=== PATIENT | female | born 1985 | race Caucasian/White ===

== ENCOUNTER → 2016-06-29 | Outpatient (CLI) | payer OTHER ==
[~2016-06-29] MED LIST: ACET-654 PO; ALBU17IN INH; AMBI12.52 PO; AUGM875T27 PO; CITA20TA4 PO; CYMB60CA3 PO; IBUP80TA PO; PERC5TAB6 PO; PERCOCET PO; PRENTAB8 OR; SIME80TA PO; TIZA2CAP3 PO; XANA0.5T PO
--- NOTE | 2016-06-29 14:10 | REP ---
Chest x-ray: Two views. History: Acute bronchitis, shortness of breath . Comparison study: May 07, 2016. . Findings: The lungs are well inflated and free of infiltrate. The pleural angles are sharp. The heart size is normal. Pulmonary vasculature is not increased. No significant bony abnormality is seen. Impression: Negative chest x-ray. Signed by Aly Burns MD 06/29/2016 02:00 P
== END ==
LOC: M ADAMS 13:40
PROVIDERS: ATTEND Physician Assistant
DX: J20.9 Acute bronchitis, unspecified (principal); R06.02 Shortness of breath

== ENCOUNTER 2016-07-04 12:24 | Emergency (ER) | payer OTHER ==
--- NOTE | 2016-07-04 13:23 | REP ---
Clinical: Acute chest pain . Comparison: 05/07/2016 . Technique: PA and lateral. Findings: The mediastinum and cardiac silhouette are normal. The lung mota are clear and without acute consolidation, effusion, or pneumothorax. The skeletal structures are intact and normal. Impression: 1. No acute cardiopulmonary process. Signed by Shaq Burton MD 07/04/2016 01:15 P
[2016-07-04 13:33] LABS: BASO # 0.1 K/mm3 (0.0-0.2); EOS # 0.3 K/mm3 (0.0-0.50); EOS % 2.6 % (0.0-3.0); LARGE UNSTAINED CELL # 0.2 K/mm3 (0.0-0.4); LARGE UNSTAINED CELL % 1.5 % (0.0-4.0); LYMPH # 4.4 K/mm3 (1.5-4.5); LYMPH % 32.8 % (24.0-44.0); MEAN CORPUSCULAR HEMOGLOBIN 28.5 pg (27.0-33.0); MEAN CORPUSCULAR VOLUME 83.7 fl (80.0-96.0); MONO # 0.7 K/mm3 (0.0-0.8); MONO % 5.2 % (0.0-5.0); NEUTROPHILS # 7.4 K/mm3 (1.8-7.7); PLATELET COUNT, AUTOMATED 284 k/mm3 (150-450); RED CELL DISTRIBUTION WIDTH 13.5 % (11.5-14.5)
[2016-07-04 13:35] LABS: ALBUMIN 3.9 GM/DL (3.2-5.2); ALBUMIN/GLOBULIN RATIO 1.05 (1.00-1.93); ALKALINE PHOSPHATASE 63 U/L (45-117); ALT/SGPT 38 U/L (12-78); AMYLASE 35 U/L (25-115); ANION GAP 8 MEQ/L (8-16); AST/SGOT 14 U/L (15-37); BILIRUBIN,DIRECT < 0.1 MG/DL (0.0-0.2); BILIRUBIN,TOTAL 0.4 MG/DL (0.2-1.0); BLOOD UREA NITROGEN 17 MG/DL (7-18); CALCIUM LEVEL 8.5 MG/DL (8.5-10.1); CARBON DIOXIDE LEVEL 27 MEQ/L (21-32); CHLORIDE LEVEL 103 MEQ/L (98-107); CREATININE FOR GFR 0.79 MG/DL (0.55-1.02); GLOMERULAR FILTRATION RATE > 60.0 (>60); GLUCOSE, FASTING 85 MG/DL (70-105); POTASSIUM SERUM 3.7 MEQ/L (3.5-5.1); SODIUM LEVEL 138 MEQ/L (136-145); TOTAL PROTEIN 7.6 GM/DL (6.4-8.2)
[2016-07-04 13:38] LABS: INR 0.99
--- NOTE | 2016-07-04 15:09 | EDDOCDS ---
Physician Documentation [facility] Name: Marilee Rivas Age: 30 yrs Sex: Female : 1985 Arrival Date: 07/04/2016 Time: 12:24 Bed 3 Private MD: Disposition: 07/04/16 14:34 Discharged to Home/Self Care. Impression: Pleurisy, Viral infection, unspecified. - Condition is Stable. - Discharge Instructions: Pleurisy, Viral Infections. - Prescriptions for Ibuprofen 600 mg Oral Tablet - take 1 tablet by ORAL route every 6 hours As needed take with food; 30 tablet. - Medication Reconciliation, Local Pharmacy Hours form. - Follow up: Private Physician; When: 4 - 5 days; Reason: Recheck today's complaints, Continuance of care. - Problem is an ongoing problem. - Symptoms are unchanged. Historical: - Allergies: no known allergies; - Home Meds: 1. BuSpar Oral 7.5 mg daily (Last dose: 07/04/2016 08:00) 2. Suboxone 8-2 mg sublingual film 1 film once daily (Last dose: 07/04/2016 08:00) 3. Levaquin 500 mg Oral tab 1 tab once daily (Last dose: 07/04/2016 08:00) 4. Celexa 40 mg Oral tab 1 tab once daily (Last dose: 07/04/2016 08:00) 5. gabapentin 400 mg Oral cap 1 cap 3 times per day (Last dose: 07/04/2016 08:00) 6. albuterol sulfate 90 mcg/actuation Inhl aepb 1 puff every 4-6 hours (Last dose: 07/04/2016 08:00) - PMHx: Anxiety; Depression; Fibromyalgia; neuropathy; opiate dependency; - PSHx: Cesearean Section; Cholecystectomy; Appendectomy; Hysterectomy; lysis of adhsions; - Social history: Smoking status: Patient states was never smoker of tobacco. No barriers to communication noted, Speaks appropriately for age. - Family history: Not pertinent. - : The pt / caregiver states he / she is not on anticoagulants. Home medication list is obtained from the patient. - Exposure Risk Screening:: None identified. 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 7 in. (170.18 cm); Pain 7/10; 12:39 Resp 20; ls3 13:00 BP 151 / 77 (auto/); ml6 13:00 Pulse 75 MON; Pulse Ox 95% ; ml6 13:15 BP 128 / 67 (auto/); ml6 13:15 Pulse 43 MON; Pulse Ox 96% ; ml6 13:27 BP 190 / 86 (auto/); ml6 13:27 Pulse 70 MON; Resp 18; Pulse Ox 98% on R/A; Pain 5/10; ml6 13:30 BP 126 / 68 (auto/); ml6 13:30 Pulse 43 MON; Resp 18; Pulse Ox 96% on R/A; ml6 13:44 Pulse 42 MON; Resp 16; Pulse Ox 94% on R/A; ml6 13:45 BP 117 / 63 (auto/); ml6 13:57 BP 160 / 77 (auto/); ml6 13:57 Pulse 72 MON; Resp 18; Pulse Ox 98% on R/A; Pain 6/10; ml6 14:00 BP 114 / 57 (auto/); ml6 14:00 Pulse 46 MON; Resp 16; Pulse Ox 95% on R/A; Pain 5/10; ml6 15:06 BP 116 / 58; Pulse 48; Resp 16; Pulse Ox 98% on R/A; Pain 6/10; ml6 12:39 Body Mass Index 32.89 (95.25 kg, 170.18 cm) ls3 15:06 patient refused temp ml6 MDM: 12:34 ECG WITH READING ER PHYS+CARDIAG ordered. EDMS 12:59 -Blood Culture (Adults Only), peripheral from different site, or from device/port/PICC ke etc. if present ordered. 12:59 Salary And Wage Administrator/Pulse Ox/q 15 min VS ordered. ke 12:59 Oxygen at 4L/Min NC or Home dosage ordered. ke 12:59 Obtain sample by nasopharyngeal swab ordered. ke 13:00 Amylase Ordered. EDMS 13:00 CBC with Diff Ordered. EDMS 13:00 Lactic Acid (Olivia tube on ice) Ordered. EDMS 13:00 Liver Profile Ordered. EDMS 13:00 MED Profile Ordered. EDMS 13:00 PT/INR Ordered. EDMS 13:00 Urinalysis Ordered. EDMS 13:00 -Blood Culture Ordered. EDMS 13:00 Urine Culture Ordered. EDMS 13:00 -Influenza A&B Rapid Antigen - Nose Ordered. EDMS 13:01 Chest, 2 View (pa\E\lat) Ordered. EDMS 13:08 -Blood Culture (Adults Only), peripheral from different site, or from device/port/PICC deg etc. if present complete. 13:13 BLOOD CULTURES Ordered. EDMS 14:00 CBC with Diff Reviewed. ke 14:00 Liver Profile Reviewed. ke 14:00 Amylase Reviewed. ke 14:00 Lactic Acid (Olivia tube on ice) Reviewed. ke 14:00 MED Profile Reviewed. ke 14:00 PT/INR Reviewed. ke 14:00 Chest, 2 View (pa\E\lat) Reviewed. ke 14:13 CARDIAC INJURY PROFILE Ordered. EDMS 14:13 C REACTIVE PROTEIN QUANTITATIV Ordered. EDMS 14:13 TROPONIN Ordered. EDMS 14:30 Liver Profile Reviewed. ke 14:30 Amylase Reviewed. ke 14:30 MED Profile Reviewed. ke 14:30 -Influenza A&B Rapid Antigen - Nose Reviewed. ke 14:30 CARDIAC INJURY PROFILE Reviewed. ke 14:30 C REACTIVE PROTEIN QUANTITATIV Reviewed. ke 14:30 TROPONIN Reviewed. ke Signatures: Dispatcher [employer] EDMS Margarita Bryan, Street Engineer Unit deg Vijay Figueroa, NURSING HOME SOCIAL WORKER Fito Lutz, RN RN ml6 The chart was reviewed and I authenticate all verbal orders and agree with the evaluation and treatment provided.Corrections: (The following items were deleted from the chart) 14:11 14:04 CARDIAC INJURY PROFILE+LAB ordered. EDMS EDMS 14:11 14:04 TROPONIN+LAB ordered. EDMS EDMS 14:11 14:04 C REACTIVE PROTEIN QUANTITATIV+LAB ordered. EDMS EDMS MTDD
--- NOTE | 2016-07-04 15:09 | EDDOCDS ---
Nurse's Notes [facility] Name: Marilee Rivas Age: 30 yrs Sex: Female : 1985 Arrival Date: 07/04/2016 Time: 12:24 Bed 3 Private MD: Diagnosis: Pleurisy;Viral infection, unspecified Presentation: 07/04 12:39 Presenting complaint: Patient states: states CP x 2 weeks despite seeing urgent care ml6 multiple times and Ax. Aspirin was taken GINNER. Adult Sepsis Screening: The patient does not have new or worsening altered mentation. Patient's respiratory rate is less than 22. Systolic blood pressure is greater than 100. Patient has a qSOFA score of 0- Negative Sepsis Screen. Suicide/Homicide risk assessment- the patient denies having any suicidal and/or homicidal ideations and does not present with any other emotional, behavioral or mental health complaints. Status: Patient is not a room service food service attendant or dependent. Transition of care: patient was not received from another setting of care. 12:39 Acuity: RONAK Level 2 ml6 12:39 Method Of Arrival: Ambulance ml6 Triage Assessment: 12:39 General: Appears in no apparent distress, Behavior is anxious, cooperative. Pain: ml6 Location: chest Pain currently is 6 out of 10 on a pain scale. Pain does not radiate. Quality of pain is described as aching, Pain began 2 weeks GINNER Is continuous Alleviated by nothing. Aggravated by increased activity. HIV screening NA for this visit Offered previously. Cardiovascular: Heart tones S1 S2 present Edema is absent. Pulses are all present. Rhythm is regular Chest pain is described as mild, quality is burning, is located in substernal area radiates Does not radiate. episodes are continuous began 2 weeks GINNER. Respiratory: No deficits noted. GI: No deficits noted. 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 BuSpar Oral 7.5 mg daily (Last dose: 07/04/2016 08:00) 2. Suboxone 8-2 mg sublingual film 1 film once daily (Last dose: 07/04/2016 08:00) 3. Levaquin 500 mg Oral tab 1 tab once daily (Last dose: 07/04/2016 08:00) 4. Celexa 40 mg Oral tab 1 tab once daily (Last dose: 07/04/2016 08:00) 5. gabapentin 400 mg Oral cap 1 cap 3 times per day (Last dose: 07/04/2016 08:00) 6. albuterol sulfate 90 mcg/actuation Inhl aepb 1 puff every 4-6 hours (Last dose: 07/04/2016 08:00) - PMHx: Anxiety; Depression; Fibromyalgia; neuropathy; opiate dependency; - PSHx: Cesearean Section; Cholecystectomy; Appendectomy; Hysterectomy; lysis of adhsions; - Social history: Smoking status: Patient states was never smoker of tobacco. No barriers to communication noted, Speaks appropriately for age. - Family history: Not pertinent. - : The pt / caregiver states he / she is not on anticoagulants. Home medication list is obtained from the patient. - Exposure Risk Screening:: None identified. Screenin:43 Screening information is obtained from the patient. Fall risk: No risks identified. ml6 Assistance ADL's: requires no assistance with activities of daily living. Abuse/DV Screen: The patient / caregiver reports he/she is: not in a situation that causes fear, pain or injury. Nutritional screening: No deficits noted. Advance Directives: Currently, there is no health care proxy. home support is adequate. Assessment: 12:39 General: see triage assessment. Cardiovascular: Capillary refill < 3 seconds is brisk ml6 in bilateral fingers toes Heart tones S1 S2 present Edema is absent. Pulses are all present. Rhythm is sinus bradycardia No ectopy. Chest pain is described as mild, quality is burning, is located in substernal area radiates Does not radiate. episodes are continuous. 13:30 General: Appears in no apparent distress, comfortable, Behavior is appropriate for age, ml6 cooperative. Pain: Location: chest Pain currently is 5 out of 10 on a pain scale. Pain does not radiate. Quality of pain is described as aching, Pain began 2 weeks ago. Cardiovascular: No deficits noted. Heart tones S1 S2 present Edema is absent. Pulses are all present. Rhythm is sinus bradycardia Chest pain. Respiratory: No deficits noted. 14:30 Reassessment: Patient appears in no apparent distress at this time. Patient states ml6 symptoms have not improved. no change from previous assessment. 15:01 General: Appears distressed, Behavior is anxious, restless, uncooperative, patient ml6 states "I'm fucking going to [place], I've been hurting for 2 weeks and the Doctor won't fix it, I'm fucking going to go to [place] where they will fucking take care of me", attempted to discuss with patient without success. Patient states "This place is a fucking joke, your a fucking joke, get out of my fucking room asshole" Patient given D/C instructions and refused copy. Copy mailed to patient. Vital Signs: 12:16 BP 203 / 102 (auto/); ml6 12:16 Pulse 80 MON; ml6 12:39 BP 150 / 88; Pulse 43; Temp 99.1(O); Pulse Ox 96% on R/A; Weight 95.25 kg; Height 5 ft. ls3 7 in. (170.18 cm); Pain 7/10; 12:39 Resp 20; ls3 13:00 BP 151 / 77 (auto/); ml6 13:00 Pulse 75 MON; Pulse Ox 95% ; ml6 13:15 BP 128 / 67 (auto/); ml6 13:15 Pulse 43 MON; Pulse Ox 96% ; ml6 13:27 BP 190 / 86 (auto/); ml6 13:27 Pulse 70 MON; Resp 18; Pulse Ox 98% on R/A; Pain 5/10; ml6 13:30 BP 126 / 68 (auto/); ml6 13:30 Pulse 43 MON; Resp 18; Pulse Ox 96% on R/A; ml6 13:44 Pulse 42 MON; Resp 16; Pulse Ox 94% on R/A; ml6 13:45 BP 117 / 63 (auto/); ml6 13:57 BP 160 / 77 (auto/); ml6 13:57 Pulse 72 MON; Resp 18; Pulse Ox 98% on R/A; Pain 6/10; ml6 14:00 BP 114 / 57 (auto/); ml6 14:00 Pulse 46 MON; Resp 16; Pulse Ox 95% on R/A; Pain 5/10; ml6 15:06 BP 116 / 58; Pulse 48; Resp 16; Pulse Ox 98% on R/A; Pain 6/10; ml6 12:39 Body Mass Index 32.89 (95.25 kg, 170.18 cm) ls3 15:06 patient refused temp ml6 Vitals: 13:03 Log In Time N/A - ambulance arrival. ml6 ED Course: 12:25 Patient visited by Margarita Bryan, Retail Chain Store Area Supervisor. deg 12:25 Patient moved to Waiting deg 12:25 The patient / caregiver is instructed regarding the plan of care and ED course. Cardiac ml6 monitor on. Pulse ox on. NIBP on. 12:27 Patient moved to 3 deg 12:39 EKG done. (by ED staff). Reviewed by Mauricio Paul MD. ls3 12:39 Inserted peripheral IV: 18gauge IV in left forearm and blood collected. Patient ml6 tolerated the procedure well. Labs drawn. (by ED staff). Sent per order to lab. 12:49 [facility]ij[facility]. ke 12:49 Patient visited by Vijay Figueroa FNP. ke 12:50 Patient visited by Vijay Figueroa FNP. ke 12:58 Triage Initiated ml6 13:21 Patient visited by Mariluz Romero PCA. ct3 13:45 Chest, 2 View (pa\\E\\lat) Returned. EDMS 13:57 Patient visited by Vijay Figueroa FNP. ke 14:24 Patient visited by Vijay Figueroa FNP. ke 15:06 Discontinued IV bleeding controlled, pressure dressing applied, No redness/swelling at ml6 site. No procedures done that require assistance. Order Results: Lab Order: Amylase; SPEC'M 07/04/16 12:53 Test: AMYLASE; Value: 35; Range: 25-115; Units: U/L; Status: F Lab Order: CBC with Diff; SPEC'M 07/04/16 12:53 Test: WHITE BLOOD COUNT; Value: 13.0; Range: 4.0-10.0; Abnormal: Above high normal; Units: K/mm3; Status: F Test: RED BLOOD COUNT; Value: 4.69; Range: 4.00-5.40; Units: M/mm3; Status: F Test: HEMOGLOBIN; Value: 13.3; Range: 12.0-16.0; Units: g/dl; Status: F Test: HEMATOCRIT; Value: 39.2; Range: 36.0-47.0; Units: %; Status: F Test: MEAN CORPUSCULAR VOLUME; Value: 83.7; Range: 80.0-96.0; Units: fl; Status: F Test: MEAN CORPUSCULAR HEMOGLOBIN; Value: 28.5; Range: 27.0-33.0; Units: pg; Status: F Test: MEAN CORPUSCULAR HGB CONC; Value: 34.0; Range: 32.0-36.5; Units: g/dl; Status: F Test: RED CELL DISTRIBUTION WIDTH; Value: 13.5; Range: 11.5-14.5; Units: %; Status: F Test: PLATELET COUNT, AUTOMATED; Value: 284; Range: 150-450; Units: k/mm3; Status: F Test: NEUTROPHILS %; Value: 57.0; Range: 36.0-66.0; Units: %; Status: F Test: LYMPH %; Value: 32.8; Range: 24.0-44.0; Units: %; Status: F Test: MONO %; Value: 5.2; Range: 0.0-5.0; Abnormal: Above high normal; Units: %; Status: F Test: EOS %; Value: 2.6; Range: 0.0-3.0; Units: %; Status: F Test: BASO %; Value: 1.0; Range: 0.0-1.0; Units: %; Status: F Test: LARGE UNSTAINED CELL %; Value: 1.5; Range: 0.0-4.0; Units: %; Status: F Test: NEUTROPHILS #; Value: 7.4; Range: 1.8-7.7; Units: K/mm3; Status: F Test: LYMPH #; Value: 4.4; Range: 1.5-4.5; Units: K/mm3; Status: F Test: MONO #; Value: 0.7; Range: 0.0-0.8; Units: K/mm3; Status: F Test: EOS #; Value: 0.3; Range: 0.0-0.50; Units: K/mm3; Status: F Test: BASO #; Value: 0.1; Range: 0.0-0.2; Units: K/mm3; Status: F Test: LARGE UNSTAINED CELL #; Value: 0.2; Range: 0.0-0.4; Units: K/mm3; Status: F Lab Order: Lactic Acid (Olivia tube on ice); SPEC'M 07/04/16 12:53 Test: LACTIC ACID LEVEL, LACTATE; Value: 0.9; Range: 0.4-2.0; Units: MMOL/L; Status: F Lab Order: Liver Profile; SPEC'M 07/04/16 12:53 Test: AST/SGOT; Value: 14; Range: 15-37; Abnormal: Below low normal; Units: U/L; Status: F Test: ALT/SGPT; Value: 38; Range: 12-78; Units: U/L; Status: F Test: ALKALINE PHOSPHATASE; Value: 63; Range: 45-117; Units: U/L; Status: F Test: BILIRUBIN,TOTAL; Value: 0.4; Range: 0.2-1.0; Units: MG/DL; Status: F Test: BILIRUBIN,DIRECT; Value: < 0.1; Range: 0.0-0.2; Units: MG/DL; Status: F Test: TOTAL PROTEIN; Value: 7.6; Range: 6.4-8.2; Units: GM/DL; Status: F Test: ALBUMIN; Value: 3.9; Range: 3.2-5.2; Units: GM/DL; Status: F Test: ALBUMIN/GLOBULIN RATIO; Value: 1.05; Range: 1.00-1.93; Status: F Lab Order: MED Profile; SPEC'M 07/04/16 12:53 Test: GLUCOSE, FASTING; Value: 85; Range: 70-105; Units: MG/DL; Status: F Test: BLOOD UREA NITROGEN; Value: 17; Range: 7-18; Units: MG/DL; Status: F Test: CREATININE FOR GFR; Value: 0.79; Range: 0.55-1.02; Units: MG/DL; Status: F Test: GLOMERULAR FILTRATION RATE; Value: > 60.0; Range: >60; Status: F Test: SODIUM LEVEL; Value: 138; Range: 136-145; Units: MEQ/L; Status: F Test: POTASSIUM SERUM; Value: 3.7; Range: 3.5-5.1; Units: MEQ/L; Status: F Test: CHLORIDE LEVEL; Value: 103; Range: 98-107; Units: MEQ/L; Status: F Test: CARBON DIOXIDE LEVEL; Value: 27; Range: 21-32; Units: MEQ/L; Status: F Test: ANION GAP; Value: 8; Range: 8-16; Units: MEQ/L; Status: F Test: CALCIUM LEVEL; Value: 8.5; Range: 8.5-10.1; Units: MG/DL; Status: F Test Note: ; Units are mL/min/1.73 m2 Chronic Kidney Disease Staging per NKF: Stage I & II GFR >=60 Normal to Mildly Decreased Stage III GFR 30-59 Moderately Decreased Stage IV GFR 15-29 Severely Decreased Stage V GFR <15 Very Little GFR Left ESRD GFR <15 on ADVOCACY DIRECTOR Lab Order: PT/INR; SPEC'M 07/04/16 12:53 Test: PROTHROMBIN TIME; Value: 13.2; Range: 12.3-14.5; Units: SECONDS; Status: F Test: INR; Value: 0.99; Status: F Test Note: ; THERAPUTIC HUMAN INR VALUES INDICATIONS NORMAL RANGES PROPHYLAXIS/TREATMENT OF: VENOUS THROMBOSIS 2.0-3.0 PULMONARY EMBOLISM 2.0-3.0 PREVENTION OF SYSTEMIC EMBOLISM FROM: TISSUE HEART VALVES 2.0-3.0 ACUTE MYOCARDIAL INFARCTION 2.0-3.0 VALVULAR HEART DISEASE 2.0-3.0 ATRIAL FIBRILLATION 2.0-3.0 MECHANICAL VALVES(HIGH RISK) 2.5-3.5 RECURRENT MYOCARDIAL INFARCTION 2.5-3.5 Lab Order: -Influenza A&B Rapid Antigen - Nose; SPEC'M 07/04/16 13:48 Test: INFLUENZA A RAPID SCR by ICA; Value: INFLUENZA A RESULTS NEGATIVE; Status: F Test: INFLUENZA A RAPID SCR by ICA; Value: Comments:; Status: F Test: INFLUENZA B RAPID SCR by ICA; Value: INFLUENZA B RESULTS NEGATIVE; Status: F Test Note: ; The Influenza test is a direct rapid immunoassay for the qualitative detection of Influenza viral antigen. Cell culture (Viral Culture) testing should be considered to confirm NEGATIVE results and to assist in detecting other viruses that can provide similar clinical symptoms. Please contact the lab within 24 hours ([phone]) if confirmatory testing is desired. Lab Order: CARDIAC INJURY PROFILE; SPEC'M 07/04/16 12:53 Test: CPK CREATINE PHOSPHOKINASE; Value: 35; Range: 26-192; Units: U/L; Status: F Test: CK-MB VALUE MASS; Value: 1.0; Range: 0.0-3.6; Units: NG/ML; Status: F Test: MB/CK RELATIVE INDEX; Value: 2.85; Range: < OR =4; Status: F Test Note: ; DIAGNOSIS CRITERIA MMB ng/ml Relative Index (RI) NON-AMI < or = 5 N/A OLIVIA ZONE > 5 < or = 4 AMI > 5 > 4 Lab Order: C REACTIVE PROTEIN QUANTITATIV; SPEC'M 07/04/16 12:53 Test: C REACTIVE PROTEIN QUANTITATIV; Value: < 0.30; Range: 0.00-0.30; Units: MG/DL; Status: F Lab Order: TROPONIN; SPEC'M 07/04/16 12:53 Test: TROPONIN I; Value: < 0.02; Range: < 0.10; Units: NG/ML; Status: F Test Note: ; Troponin I Reference Interval for [employer] LOCI: 99th Percentile= 0.00-0.045 ng/ml Risk Stratification: <= 0.10 ng/ml Decreased Risk for Adverse Clinical Events. 0.10-1.50 ng/ml Increased Risk for Adverse Clinical Events. Evaluation of additional criterion and/or repeat testing in 2-6 hours is suggested to rule out myocardial damage. >= 1.50 ng/ml Indicative of Myocardial Injury. Radiology Order: Chest, 2 View (pa\\E\\lat) Test: Chest, 2 View (pa\\E\\lat) REASON FOR EXAMINATION: Chest Pain; Clinical: Acute chest pain .; ; Comparison: 05/07/2016 .; ; Technique: PA and lateral.; ; Findings:; The mediastinum and cardiac silhouette are normal. The lung mota are clear and; without acute consolidation, effusion, or pneumothorax. The skeletal structures; are intact and normal.; ; Impression:; 1. No acute cardiopulmonary process.; ; ; Signed by; Shaq Burton MD 07/04/2016 01:15 P; Outcome: 14:34 Discharge ordered by Provider. 15:06 Discharge Assessment: patient administered narcotics - no. The following High Risk ml6 Discharge criteria are identified: None. Discharged to home ambulatory. Condition: stable. Discharge instructions given to patient, Instructed on discharge instructions, follow up and referral plans. medication usage, Demonstrated understanding of instructions, medications, Patient was not receptive of discharge instructions. Prescriptions given X 1. No special radiology studies were completed. Property :Personal belongings accompany Pt. 15:07 Patient left the ED. ml6 Signatures: Dispatcher [employer] EDMS Margarita Bryan, Retail Chain Store Area Supervisor Unit deg iVjay Figueroa, NUTRITION TECHNICIAN NUTRITION TECHNICIAN Fito Avila, RN RN ml6 Mariluz Romero, DATA KEYER DATA KEYER ct3 Maria Elena Cortez, DATA KEYER DATA KEYER ls3 Corrections: (The following items were deleted from the chart) 15:06 13:27 Pulse 70bpm; MonitorResp 18bpm; Pulse Ox 98% RA; Pain 0/10; ml6 ml6 15:06 13:57 Pulse 72bpm; MonitorResp 18bpm; Pulse Ox 98% RA; Pain 0/10; ml6 ml6 15:06 14:00 Pulse 46bpm; MonitorResp 16bpm; Pulse Ox 95% RA; ml6 ml6 MTDD
--- NOTE | 2016-07-05 07:25 | ECGEPIP ---
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
--- NOTE | 2016-07-06 16:08 | EDDOCDS ---
Nurse's Notes [facility] Name: Katie Rivas Age: 30 yrs Sex: Female : 1985 Arrival Date: 07/04/2016 Time: 12:24 Bed 3 Private MD: Diagnosis: Pleurisy;Viral infection, unspecified Presentation: 07/04 12:39 Presenting complaint: Patient states: states CP x 2 weeks despite seeing urgent care ml6 multiple times and Ax. Aspirin was taken ACID PAINTER. Adult Sepsis Screening: The patient does not have new or worsening altered mentation. Patient's respiratory rate is less than 22. Systolic blood pressure is greater than 100. Patient has a qSOFA score of 0- Negative Sepsis Screen. Suicide/Homicide risk assessment- the patient denies having any suicidal and/or homicidal ideations and does not present with any other emotional, behavioral or mental health complaints. Status: Patient is not a creative services writer or dependent. Transition of care: patient was not received from another setting of care. 12:39 Acuity: RONAK Level 2 ml6 12:39 Method Of Arrival: Ambulance ml6 Triage Assessment: 12:39 General: Appears in no apparent distress, Behavior is anxious, cooperative. Pain: ml6 Location: chest Pain currently is 6 out of 10 on a pain scale. Pain does not radiate. Quality of pain is described as aching, Pain began 2 weeks ACID PAINTER Is continuous Alleviated by nothing. Aggravated by increased activity. HIV screening NA for this visit Offered previously. Cardiovascular: Heart tones S1 S2 present Edema is absent. Pulses are all present. Rhythm is regular Chest pain is described as mild, quality is burning, is located in substernal area radiates Does not radiate. episodes are continuous began 2 weeks ACID PAINTER. Respiratory: No deficits noted. GI: No deficits noted. 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 BuSpar Oral 7.5 mg daily (Last dose: 07/04/2016 08:00) 2. Suboxone 8-2 mg sublingual film 1 film once daily (Last dose: 07/04/2016 08:00) 3. Levaquin 500 mg Oral tab 1 tab once daily (Last dose: 07/04/2016 08:00) 4. Celexa 40 mg Oral tab 1 tab once daily (Last dose: 07/04/2016 08:00) 5. gabapentin 400 mg Oral cap 1 cap 3 times per day (Last dose: 07/04/2016 08:00) 6. albuterol sulfate 90 mcg/actuation Inhl aepb 1 puff every 4-6 hours (Last dose: 07/04/2016 08:00) - PMHx: Anxiety; Depression; Fibromyalgia; neuropathy; opiate dependency; - PSHx: Cesearean Section; Cholecystectomy; Appendectomy; Hysterectomy; lysis of adhsions; - Social history: Smoking status: Patient states was never smoker of tobacco. No barriers to communication noted, Speaks appropriately for age. - Family history: Not pertinent. - : The pt / caregiver states he / she is not on anticoagulants. Home medication list is obtained from the patient. - Exposure Risk Screening:: None identified. Screenin:43 Screening information is obtained from the patient. Fall risk: No risks identified. ml6 Assistance ADL's: requires no assistance with activities of daily living. Abuse/DV Screen: The patient / caregiver reports he/she is: not in a situation that causes fear, pain or injury. Nutritional screening: No deficits noted. Advance Directives: Currently, there is no health care proxy. home support is adequate. Assessment: 12:39 General: see triage assessment. Cardiovascular: Capillary refill < 3 seconds is brisk ml6 in bilateral fingers toes Heart tones S1 S2 present Edema is absent. Pulses are all present. Rhythm is sinus bradycardia No ectopy. Chest pain is described as mild, quality is burning, is located in substernal area radiates Does not radiate. episodes are continuous. 13:30 General: Appears in no apparent distress, comfortable, Behavior is appropriate for age, ml6 cooperative. Pain: Location: chest Pain currently is 5 out of 10 on a pain scale. Pain does not radiate. Quality of pain is described as aching, Pain began 2 weeks ago. Cardiovascular: No deficits noted. Heart tones S1 S2 present Edema is absent. Pulses are all present. Rhythm is sinus bradycardia Chest pain. Respiratory: No deficits noted. 14:30 Reassessment: Patient appears in no apparent distress at this time. Patient states ml6 symptoms have not improved. no change from previous assessment. 15:01 General: Appears distressed, Behavior is anxious, restless, uncooperative, patient ml6 states "I'm fucking going to [place], I've been hurting for 2 weeks and the Doctor won't fix it, I'm fucking going to go to [place] where they will fucking take care of me", attempted to discuss with patient without success. Patient states "This place is a fucking joke, your a fucking joke, get out of my fucking room asshole" Patient given D/C instructions and refused copy. Copy mailed to patient. Vital Signs: 12:16 BP 203 / 102 (auto/); ml6 12:16 Pulse 80 MON; ml6 12:39 BP 150 / 88; Pulse 43; Temp 99.1(O); Pulse Ox 96% on R/A; Weight 95.25 kg; Height 5 ft. ls3 7 in. (170.18 cm); Pain 7/10; 12:39 Resp 20; ls3 13:00 BP 151 / 77 (auto/); ml6 13:00 Pulse 75 MON; Pulse Ox 95% ; ml6 13:15 BP 128 / 67 (auto/); ml6 13:15 Pulse 43 MON; Pulse Ox 96% ; ml6 13:27 BP 190 / 86 (auto/); ml6 13:27 Pulse 70 MON; Resp 18; Pulse Ox 98% on R/A; Pain 5/10; ml6 13:30 BP 126 / 68 (auto/); ml6 13:30 Pulse 43 MON; Resp 18; Pulse Ox 96% on R/A; ml6 13:44 Pulse 42 MON; Resp 16; Pulse Ox 94% on R/A; ml6 13:45 BP 117 / 63 (auto/); ml6 13:57 BP 160 / 77 (auto/); ml6 13:57 Pulse 72 MON; Resp 18; Pulse Ox 98% on R/A; Pain 6/10; ml6 14:00 BP 114 / 57 (auto/); ml6 14:00 Pulse 46 MON; Resp 16; Pulse Ox 95% on R/A; Pain 5/10; ml6 15:06 BP 116 / 58; Pulse 48; Resp 16; Pulse Ox 98% on R/A; Pain 6/10; ml6 12:39 Body Mass Index 32.89 (95.25 kg, 170.18 cm) ls3 15:06 patient refused temp ml6 Vitals: 13:03 Log In Time N/A - ambulance arrival. ml6 ED Course: 12:25 Patient visited by Margarita Bryan, Magnetic Doctor. deg 12:25 Patient moved to Waiting deg 12:25 The patient / caregiver is instructed regarding the plan of care and ED course. Cardiac ml6 monitor on. Pulse ox on. NIBP on. 12:27 Patient moved to 3 deg 12:39 EKG done. (by ED staff). Reviewed by Mauricio Paul MD. ls3 12:39 Inserted peripheral IV: 18gauge IV in left forearm and blood collected. Patient ml6 tolerated the procedure well. Labs drawn. (by ED staff). Sent per order to lab. 12:49 [facility]ijay Figueroa FNP [facility]. ke 12:49 Patient visited by Vijay Figueroa FNP. ke 12:50 Patient visited by Vijay Figueroa FNP. ke 12:58 Triage Initiated ml6 13:21 Patient visited by Mariluz Romero, BILLIE. ct3 13:45 Chest, 2 View (pa\\E\\lat) Returned. EDMS 13:57 Patient visited by Vijay Figueroa FNP. ke 14:24 Patient visited by Vijay Figueroa FNP. ke 15:06 Discontinued IV bleeding controlled, pressure dressing applied, No redness/swelling at ml6 site. No procedures done that require assistance. 07/05 07:42 EKG-ADULT Returned. EDMS 10:15 T-Sheet-- Draft Copy was scanned into [employer] and attached to record. gb 10:16 ECG/EKG was scanned into [employer] and attached to record. gb Order Results: Lab Order: -Blood Culture; SPEC'M 07/04/16 12:53 Test: BLOOD CULTURE; Value: No growth after 24 hours . All specimens observed; Status: F Test: BLOOD CULTURE; Value: for 5 days. Results final at that time.; Status: F Test: BLOOD CULTURE; Value: No Growth after 48 hours. All Specimens observed; Status: F Test: BLOOD CULTURE; Value: for 7 days. Results final at that time.; Status: F Lab Order: Amylase; SPEC'M 07/04/16 12:53 Test: AMYLASE; Value: 35; Range: 25-115; Units: U/L; Status: F Lab Order: CBC with Diff; SPEC'M 07/04/16 12:53 Test: WHITE BLOOD COUNT; Value: 13.0; Range: 4.0-10.0; Abnormal: Above high normal; Units: K/mm3; Status: F Test: RED BLOOD COUNT; Value: 4.69; Range: 4.00-5.40; Units: M/mm3; Status: F Test: HEMOGLOBIN; Value: 13.3; Range: 12.0-16.0; Units: g/dl; Status: F Test: HEMATOCRIT; Value: 39.2; Range: 36.0-47.0; Units: %; Status: F Test: MEAN CORPUSCULAR VOLUME; Value: 83.7; Range: 80.0-96.0; Units: fl; Status: F Test: MEAN CORPUSCULAR HEMOGLOBIN; Value: 28.5; Range: 27.0-33.0; Units: pg; Status: F Test: MEAN CORPUSCULAR HGB CONC; Value: 34.0; Range: 32.0-36.5; Units: g/dl; Status: F Test: RED CELL DISTRIBUTION WIDTH; Value: 13.5; Range: 11.5-14.5; Units: %; Status: F Test: PLATELET COUNT, AUTOMATED; Value: 284; Range: 150-450; Units: k/mm3; Status: F Test: NEUTROPHILS %; Value: 57.0; Range: 36.0-66.0; Units: %; Status: F Test: LYMPH %; Value: 32.8; Range: 24.0-44.0; Units: %; Status: F Test: MONO %; Value: 5.2; Range: 0.0-5.0; Abnormal: Above high normal; Units: %; Status: F Test: EOS %; Value: 2.6; Range: 0.0-3.0; Units: %; Status: F Test: BASO %; Value: 1.0; Range: 0.0-1.0; Units: %; Status: F Test: LARGE UNSTAINED CELL %; Value: 1.5; Range: 0.0-4.0; Units: %; Status: F Test: NEUTROPHILS #; Value: 7.4; Range: 1.8-7.7; Units: K/mm3; Status: F Test: LYMPH #; Value: 4.4; Range: 1.5-4.5; Units: K/mm3; Status: F Test: MONO #; Value: 0.7; Range: 0.0-0.8; Units: K/mm3; Status: F Test: EOS #; Value: 0.3; Range: 0.0-0.50; Units: K/mm3; Status: F Test: BASO #; Value: 0.1; Range: 0.0-0.2; Units: K/mm3; Status: F Test: LARGE UNSTAINED CELL #; Value: 0.2; Range: 0.0-0.4; Units: K/mm3; Status: F Lab Order: Lactic Acid (Olivia tube on ice); [facility]' 07/04/16 12:53 Test: LACTIC ACID LEVEL, LACTATE; Value: 0.9; Range: 0.4-2.0; Units: MMOL/L; Status: F Lab Order: Liver Profile; [facility] 07/04/16 12:53 Test: AST/SGOT; Value: 14; Range: 15-37; Abnormal: Below low normal; Units: U/L; Status: F Test: ALT/SGPT; Value: 38; Range: 12-78; Units: U/L; Status: F Test: ALKALINE PHOSPHATASE; Value: 63; Range: 45-117; Units: U/L; Status: F Test: BILIRUBIN,TOTAL; Value: 0.4; Range: 0.2-1.0; Units: MG/DL; Status: F Test: BILIRUBIN,DIRECT; Value: < 0.1; Range: 0.0-0.2; Units: MG/DL; Status: F Test: TOTAL PROTEIN; Value: 7.6; Range: 6.4-8.2; Units: GM/DL; Status: F Test: ALBUMIN; Value: 3.9; Range: 3.2-5.2; Units: GM/DL; Status: F Test: ALBUMIN/GLOBULIN RATIO; Value: 1.05; Range: 1.00-1.93; Status: F Lab Order: MED Profile; SPEC' 07/04/16 12:53 Test: GLUCOSE, FASTING; Value: 85; Range: 70-105; Units: MG/DL; Status: F Test: BLOOD UREA NITROGEN; Value: 17; Range: 7-18; Units: MG/DL; Status: F Test: CREATININE FOR GFR; Value: 0.79; Range: 0.55-1.02; Units: MG/DL; Status: F Test: GLOMERULAR FILTRATION RATE; Value: > 60.0; Range: >60; Status: F Test: SODIUM LEVEL; Value: 138; Range: 136-145; Units: MEQ/L; Status: F Test: POTASSIUM SERUM; Value: 3.7; Range: 3.5-5.1; Units: MEQ/L; Status: F Test: CHLORIDE LEVEL; Value: 103; Range: 98-107; Units: MEQ/L; Status: F Test: CARBON DIOXIDE LEVEL; Value: 27; Range: 21-32; Units: MEQ/L; Status: F Test: ANION GAP; Value: 8; Range: 8-16; Units: MEQ/L; Status: F Test: CALCIUM LEVEL; Value: 8.5; Range: 8.5-10.1; Units: MG/DL; Status: F Test Note: ; Units are mL/min/1.73 m2 Chronic Kidney Disease Staging per NKF: Stage I & II GFR >=60 Normal to Mildly Decreased Stage III GFR 30-59 Moderately Decreased Stage IV GFR 15-29 Severely Decreased Stage V GFR <15 Very Little GFR Left ESRD GFR <15 on INSIDE SALES EXECUTIVE Lab Order: PT/INR; SPEC'M 07/04/16 12:53 Test: PROTHROMBIN TIME; Value: 13.2; Range: 12.3-14.5; Units: SECONDS; Status: F Test: INR; Value: 0.99; Status: F Test Note: ; THERAPUTIC HUMAN INR VALUES INDICATIONS NORMAL RANGES PROPHYLAXIS/TREATMENT OF: VENOUS THROMBOSIS 2.0-3.0 PULMONARY EMBOLISM 2.0-3.0 PREVENTION OF SYSTEMIC EMBOLISM FROM: TISSUE HEART VALVES 2.0-3.0 ACUTE MYOCARDIAL INFARCTION 2.0-3.0 VALVULAR HEART DISEASE 2.0-3.0 ATRIAL FIBRILLATION 2.0-3.0 MECHANICAL VALVES(HIGH RISK) 2.5-3.5 RECURRENT MYOCARDIAL INFARCTION 2.5-3.5 Lab Order: -Influenza A&B Rapid Antigen - Nose; SPEC'M 07/04/16 13:48 Test: INFLUENZA A RAPID SCR by ICA; Value: INFLUENZA A RESULTS NEGATIVE; Status: F Test: INFLUENZA A RAPID SCR by ICA; Value: Comments:; Status: F Test: INFLUENZA B RAPID SCR by ICA; Value: INFLUENZA B RESULTS NEGATIVE; Status: F Test Note: ; The Influenza test is a direct rapid immunoassay for the qualitative detection of Influenza viral antigen. Cell culture (Viral Culture) testing should be considered to confirm NEGATIVE results and to assist in detecting other viruses that can provide similar clinical symptoms. Please contact the lab within 24 hours ([phone]) if confirmatory testing is desired. Lab Order: BLOOD CULTURES; SPEC'M 07/04/16 12:53 Test: BLOOD CULTURE; Value: No growth after 24 hours . All specimens observed; Status: F Test: BLOOD CULTURE; Value: for 5 days. Results final at that time.; Status: F Test: BLOOD CULTURE; Value: No Growth after 48 hours. All Specimens observed; Status: F Test: BLOOD CULTURE; Value: for 7 days. Results final at that time.; Status: F Lab Order: CARDIAC INJURY PROFILE; SPEC'M 07/04/16 12:53 Test: CPK CREATINE PHOSPHOKINASE; Value: 35; Range: 26-192; Units: U/L; Status: F Test: CK-MB VALUE MASS; Value: 1.0; Range: 0.0-3.6; Units: NG/ML; Status: F Test: MB/CK RELATIVE INDEX; Value: 2.85; Range: < OR =4; Status: F Test Note: ; DIAGNOSIS CRITERIA MMB ng/ml Relative Index (RI) NON-AMI < or = 5 N/A OLIVIA ZONE > 5 < or = 4 AMI > 5 > 4 Lab Order: C REACTIVE PROTEIN QUANTITATIV; SPEC'M 07/04/16 12:53 Test: C REACTIVE PROTEIN QUANTITATIV; Value: < 0.30; Range: 0.00-0.30; Units: MG/DL; Status: F Lab Order: TROPONIN; SPEC'M 07/04/16 12:53 Test: TROPONIN I; Value: < 0.02; Range: < 0.10; Units: NG/ML; Status: F Test Note: ; Troponin I Reference Interval for [employer] LOCI: 99th Percentile= 0.00-0.045 ng/ml Risk Stratification: <= 0.10 ng/ml Decreased Risk for Adverse Clinical Events. 0.10-1.50 ng/ml Increased Risk for Adverse Clinical Events. Evaluation of additional criterion and/or repeat testing in 2-6 hours is suggested to rule out myocardial damage. >= 1.50 ng/ml Indicative of Myocardial Injury. 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:; : 1985 Requested By: Mauricio Winn; Order Number: [id number] Reading MD: Berenice Jackson; Measurements; Intervals [place]; Rate: 44 P: 56; MN: 147 QRS: 2; QRSD: 112 T: 12; QT: 461; QTc: 396; Interpretive Statements; SINUS BRADYCARDIA; MODERATE INTRAVENTRICULAR CONDUCTION DELAY; NSTTW ABNORMALITY; SIMILAR 05/28/13; Electronically Signed On 07-05-2016 7:24:48 EST by Berenice Jackson; Radiology Order: Chest, 2 View (pa\\E\\lat) Test: Chest, 2 View (pa\\E\\lat) REASON FOR EXAMINATION: Chest Pain; Clinical: Acute chest pain .; ; Comparison: 05/07/2016 .; ; Technique: PA and lateral.; ; Findings:; The mediastinum and cardiac silhouette are normal. The lung mota are clear and; without acute consolidation, effusion, or pneumothorax. The skeletal structures; are intact and normal.; ; Impression:; 1. No acute cardiopulmonary process.; ; ; Signed by; Shaq Burton MD 07/04/2016 01:15 P; Outcome: 07/04 14:34 Discharge ordered by Provider. polo 15:06 Discharge Assessment: patient administered narcotics - no. The following High Risk ml6 Discharge criteria are identified: None. Discharged to home ambulatory. Condition: stable. Discharge instructions given to patient, Instructed on discharge instructions, follow up and referral plans. medication usage, Demonstrated understanding of instructions, medications, Patient was not receptive of discharge instructions. Prescriptions given X 1. No special radiology studies were completed. Property :Personal belongings accompany Pt. 15:07 Patient left the ED. ml6 Signatures: Dispatcher [employer] EDMS Margarita Bryan, Magnetic Doctor Unit deg Ashlyn Langston, Reg Reg gb Vijay Figueroa, BROKER BROKER Fito Avila, YASH RN ml6 Nick, Mariluz, NUCLEAR FUELS RECLAMATION ENGINEER NUCLEAR FUELS RECLAMATION ENGINEER ct3 Maria Elena Cortez, NUCLEAR FUELS RECLAMATION ENGINEER NUCLEAR FUELS RECLAMATION ENGINEER ls3 Corrections: (The following items were deleted from the chart) 15:06 13:27 Pulse 70bpm; MonitorResp 18bpm; Pulse Ox 98% RA; Pain 0/10; ml6 ml6 15:06 13:57 Pulse 72bpm; MonitorResp 18bpm; Pulse Ox 98% RA; Pain 0/10; ml6 ml6 15:06 14:00 Pulse 46bpm; MonitorResp 16bpm; Pulse Ox 95% RA; ml6 ml6 Chart Complete MTDD
--- NOTE | 2016-07-06 16:08 | EDDOCDS ---
Physician Documentation [facility] Name: Marilee Rivas Age: 30 yrs Sex: Female : 1985 Arrival Date: 07/04/2016 Time: 12:24 Bed 3 Private MD: Disposition: 07/04/16 14:34 Discharged to Home/Self Care. Impression: Pleurisy, Viral infection, unspecified. - Condition is Stable. - Discharge Instructions: Pleurisy, Viral Infections. - Prescriptions for Ibuprofen 600 mg Oral Tablet - take 1 tablet by ORAL route every 6 hours As needed take with food; 30 tablet. - Medication Reconciliation, Local Pharmacy Hours form. - Follow up: Private Physician; When: 4 - 5 days; Reason: Recheck today's complaints, Continuance of care. - Problem is an ongoing problem. - Symptoms are unchanged. Historical: - Allergies: no known allergies; - Home Meds: 1. BuSpar Oral 7.5 mg daily (Last dose: 07/04/2016 08:00) 2. Suboxone 8-2 mg sublingual film 1 film once daily (Last dose: 07/04/2016 08:00) 3. Levaquin 500 mg Oral tab 1 tab once daily (Last dose: 07/04/2016 08:00) 4. Celexa 40 mg Oral tab 1 tab once daily (Last dose: 07/04/2016 08:00) 5. gabapentin 400 mg Oral cap 1 cap 3 times per day (Last dose: 07/04/2016 08:00) 6. albuterol sulfate 90 mcg/actuation Inhl aepb 1 puff every 4-6 hours (Last dose: 07/04/2016 08:00) - PMHx: Anxiety; Depression; Fibromyalgia; neuropathy; opiate dependency; - PSHx: Cesearean Section; Cholecystectomy; Appendectomy; Hysterectomy; lysis of adhsions; - Social history: Smoking status: Patient states was never smoker of tobacco. No barriers to communication noted, Speaks appropriately for age. - Family history: Not pertinent. - : The pt / caregiver states he / she is not on anticoagulants. Home medication list is obtained from the patient. - Exposure Risk Screening:: None identified. 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 7 in. (170.18 cm); Pain 7/10; 12:39 Resp 20; ls3 13:00 BP 151 / 77 (auto/); ml6 13:00 Pulse 75 MON; Pulse Ox 95% ; ml6 13:15 BP 128 / 67 (auto/); ml6 13:15 Pulse 43 MON; Pulse Ox 96% ; ml6 13:27 BP 190 / 86 (auto/); ml6 13:27 Pulse 70 MON; Resp 18; Pulse Ox 98% on R/A; Pain 5/10; ml6 13:30 BP 126 / 68 (auto/); ml6 13:30 Pulse 43 MON; Resp 18; Pulse Ox 96% on R/A; ml6 13:44 Pulse 42 MON; Resp 16; Pulse Ox 94% on R/A; ml6 13:45 BP 117 / 63 (auto/); ml6 13:57 BP 160 / 77 (auto/); ml6 13:57 Pulse 72 MON; Resp 18; Pulse Ox 98% on R/A; Pain 6/10; ml6 14:00 BP 114 / 57 (auto/); ml6 14:00 Pulse 46 MON; Resp 16; Pulse Ox 95% on R/A; Pain 5/10; ml6 15:06 BP 116 / 58; Pulse 48; Resp 16; Pulse Ox 98% on R/A; Pain 6/10; ml6 12:39 Body Mass Index 32.89 (95.25 kg, 170.18 cm) ls3 15:06 patient refused temp ml6 MDM: 12:34 ECG WITH READING ER PHYS+CARDIAG ordered. EDMS 12:59 -Blood Culture (Adults Only), peripheral from different site, or from device/port/PICC ke etc. if present ordered. 12:59 Supply Chain Consultant/Pulse Ox/q 15 min VS ordered. ke 12:59 Oxygen at 4L/Min NC or Home dosage ordered. ke 12:59 Obtain sample by nasopharyngeal swab ordered. ke 13:00 Amylase Ordered. EDMS 13:00 CBC with Diff Ordered. EDMS 13:00 Lactic Acid (Olivia tube on ice) Ordered. EDMS 13:00 Liver Profile Ordered. EDMS 13:00 MED Profile Ordered. EDMS 13:00 PT/INR Ordered. EDMS 13:00 Urinalysis Ordered. EDMS 13:00 -Blood Culture Ordered. EDMS 13:00 Urine Culture Ordered. EDMS 13:00 -Influenza A&B Rapid Antigen - Nose Ordered. EDMS 13:01 Chest, 2 View (pa\E\lat) Ordered. EDMS 13:08 -Blood Culture (Adults Only), peripheral from different site, or from device/port/PICC deg etc. if present complete. 13:13 BLOOD CULTURES Ordered. EDMS 14:00 CBC with Diff Reviewed. ke 14:00 Liver Profile Reviewed. ke 14:00 Amylase Reviewed. ke 14:00 Lactic Acid (Olivia tube on ice) Reviewed. ke 14:00 MED Profile Reviewed. ke 14:00 PT/INR Reviewed. ke 14:00 Chest, 2 View (pa\E\lat) Reviewed. ke 14:13 CARDIAC INJURY PROFILE Ordered. EDMS 14:13 C REACTIVE PROTEIN QUANTITATIV Ordered. EDMS 14:13 TROPONIN Ordered. EDMS 14:30 Liver Profile Reviewed. ke 14:30 Amylase Reviewed. ke 14:30 MED Profile Reviewed. ke 14:30 -Influenza A&B Rapid Antigen - Nose Reviewed. ke 14:30 CARDIAC INJURY PROFILE Reviewed. ke 14:30 C REACTIVE PROTEIN QUANTITATIV Reviewed. ke 14:30 TROPONIN Reviewed. 07/05 10:15 T-Sheet-- Draft Copy was scanned into [employer] and attached to record. 10:16 ECG/EKG was scanned into [employer] and attached to record. gb Signatures: Dispatcher [employer] EDMargarita Tripathi, Cold Rolling Machine Setter Unit deg Ashlyn Langston, Reg Reg gb Vijay Figueroa, RANGE TECHNICIAN RANGE TECHNICIAN Fito Avila, RN RN ml6 The chart was reviewed and I authenticate all verbal orders and agree with the evaluation and treatment provided.Corrections: (The following items were deleted from the chart) 07/04 14:11 14:04 CARDIAC INJURY PROFILE+LAB ordered. EDWV EDMS 14:11 14:04 TROPONIN+LAB ordered. EDWV EDMS 14:11 14:04 C REACTIVE PROTEIN QUANTITATIV+LAB ordered. EDWV EDMS Attachments: 07/05 10:15 T-Sheet-- Draft Copy gb 10:16 ECG/EKG gb Chart Complete MTDD
--- NOTE | 2016-07-06 16:08 | EDDOCDS ---
Physician Documentation [facility] Name: Marilee Rivas Age: 30 yrs Sex: Female : 1985 Arrival Date: 07/04/2016 Time: 12:24 Bed 3 Private MD: Disposition: 07/04/16 14:34 Discharged to Home/Self Care. Impression: Pleurisy, Viral infection, unspecified. - Condition is Stable. - Discharge Instructions: Pleurisy, Viral Infections. - Prescriptions for Ibuprofen 600 mg Oral Tablet - take 1 tablet by ORAL route every 6 hours As needed take with food; 30 tablet. - Medication Reconciliation, Local Pharmacy Hours form. - Follow up: Private Physician; When: 4 - 5 days; Reason: Recheck today's complaints, Continuance of care. - Problem is an ongoing problem. - Symptoms are unchanged. Historical: - Allergies: no known allergies; - Home Meds: 1. BuSpar Oral 7.5 mg daily (Last dose: 07/04/2016 08:00) 2. Suboxone 8-2 mg sublingual film 1 film once daily (Last dose: 07/04/2016 08:00) 3. Levaquin 500 mg Oral tab 1 tab once daily (Last dose: 07/04/2016 08:00) 4. Celexa 40 mg Oral tab 1 tab once daily (Last dose: 07/04/2016 08:00) 5. gabapentin 400 mg Oral cap 1 cap 3 times per day (Last dose: 07/04/2016 08:00) 6. albuterol sulfate 90 mcg/actuation Inhl aepb 1 puff every 4-6 hours (Last dose: 07/04/2016 08:00) - PMHx: Anxiety; Depression; Fibromyalgia; neuropathy; opiate dependency; - PSHx: Cesearean Section; Cholecystectomy; Appendectomy; Hysterectomy; lysis of adhsions; - Social history: Smoking status: Patient states was never smoker of tobacco. No barriers to communication noted, Speaks appropriately for age. - Family history: Not pertinent. - : The pt / caregiver states he / she is not on anticoagulants. Home medication list is obtained from the patient. - Exposure Risk Screening:: None identified. 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 7 in. (170.18 cm); Pain 7/10; 12:39 Resp 20; ls3 13:00 BP 151 / 77 (auto/); ml6 13:00 Pulse 75 MON; Pulse Ox 95% ; ml6 13:15 BP 128 / 67 (auto/); ml6 13:15 Pulse 43 MON; Pulse Ox 96% ; ml6 13:27 BP 190 / 86 (auto/); ml6 13:27 Pulse 70 MON; Resp 18; Pulse Ox 98% on R/A; Pain 5/10; ml6 13:30 BP 126 / 68 (auto/); ml6 13:30 Pulse 43 MON; Resp 18; Pulse Ox 96% on R/A; ml6 13:44 Pulse 42 MON; Resp 16; Pulse Ox 94% on R/A; ml6 13:45 BP 117 / 63 (auto/); ml6 13:57 BP 160 / 77 (auto/); ml6 13:57 Pulse 72 MON; Resp 18; Pulse Ox 98% on R/A; Pain 6/10; ml6 14:00 BP 114 / 57 (auto/); ml6 14:00 Pulse 46 MON; Resp 16; Pulse Ox 95% on R/A; Pain 5/10; ml6 15:06 BP 116 / 58; Pulse 48; Resp 16; Pulse Ox 98% on R/A; Pain 6/10; ml6 12:39 Body Mass Index 32.89 (95.25 kg, 170.18 cm) ls3 15:06 patient refused temp ml6 MDM: 12:34 ECG WITH READING ER PHYS+CARDIAG ordered. EDMS 12:59 -Blood Culture (Adults Only), peripheral from different site, or from device/port/PICC ke etc. if present ordered. 12:59 Rum Processing Operator/Pulse Ox/q 15 min VS ordered. ke 12:59 Oxygen at 4L/Min NC or Home dosage ordered. ke 12:59 Obtain sample by nasopharyngeal swab ordered. ke 13:00 Amylase Ordered. EDMS 13:00 CBC with Diff Ordered. EDMS 13:00 Lactic Acid (Olivia tube on ice) Ordered. EDMS 13:00 Liver Profile Ordered. EDMS 13:00 MED Profile Ordered. EDMS 13:00 PT/INR Ordered. EDMS 13:00 Urinalysis Ordered. EDMS 13:00 -Blood Culture Ordered. EDMS 13:00 Urine Culture Ordered. EDMS 13:00 -Influenza A&B Rapid Antigen - Nose Ordered. EDMS 13:01 Chest, 2 View (pa\E\lat) Ordered. EDMS 13:08 -Blood Culture (Adults Only), peripheral from different site, or from device/port/PICC deg etc. if present complete. 13:13 BLOOD CULTURES Ordered. EDMS 14:00 CBC with Diff Reviewed. ke 14:00 Liver Profile Reviewed. ke 14:00 Amylase Reviewed. ke 14:00 Lactic Acid (Olivia tube on ice) Reviewed. ke 14:00 MED Profile Reviewed. ke 14:00 PT/INR Reviewed. ke 14:00 Chest, 2 View (pa\E\lat) Reviewed. ke 14:13 CARDIAC INJURY PROFILE Ordered. EDMS 14:13 C REACTIVE PROTEIN QUANTITATIV Ordered. EDMS 14:13 TROPONIN Ordered. EDMS 14:30 Liver Profile Reviewed. ke 14:30 Amylase Reviewed. ke 14:30 MED Profile Reviewed. ke 14:30 -Influenza A&B Rapid Antigen - Nose Reviewed. ke 14:30 CARDIAC INJURY PROFILE Reviewed. ke 14:30 C REACTIVE PROTEIN QUANTITATIV Reviewed. ke 14:30 TROPONIN Reviewed. 07/05 10:15 T-Sheet-- Draft Copy was scanned into [employer] and attached to record. 10:16 ECG/EKG was scanned into [employer] and attached to record. gb Signatures: Dispatcher [employer] EDMargarita Tripathi, [employer] Room Service Supervisor Unit deg Ashlyn Langston, Reg Reg gb Vijay Figueroa, TECHNOLOGY OFFICER TECHNOLOGY OFFICER Fito Avila, RN RN ml6 The chart was reviewed and I authenticate all verbal orders and agree with the evaluation and treatment provided.Corrections: (The following items were deleted from the chart) 07/04 14:11 14:04 CARDIAC INJURY PROFILE+LAB ordered. EDAZ EDMS 14:11 14:04 TROPONIN+LAB ordered. EDAZ EDMS 14:11 14:04 C REACTIVE PROTEIN QUANTITATIV+LAB ordered. EDAZ EDMS Attachments: 07/05 10:15 T-Sheet-- Draft Copy gb 10:16 ECG/EKG gb Chart Complete MTDD
== END 2016-07-04 15:07 | disposition home or self-care (01) ==
LOC: M ED 12:24
DX: R09.1 Pleurisy (principal); B34.9 Viral infection, unspecified; F41.9 Anxiety disorder, unspecified; F32.9 Major depressive disorder, single episode, unspecified; M79.7 Fibromyalgia; G62.9 Polyneuropathy, unspecified; F11.20 Opioid dependence, uncomplicated; Z79.899 Other long term (current) drug therapy; Z79.2 Long term (current) use of antibiotics

== ENCOUNTER → 2016-07-04 | Outpatient (CLI) | payer OTHER ==
[2016-07-04 13:41] LABS: BASO # 0.1 K/mm3 (0.0-0.2); BASO % 0.8 % (0.0-1.0); EOS # 0.3 K/mm3 (0.0-0.50); EOS % 2.3 % (0.0-3.0); LARGE UNSTAINED CELL # 0.2 K/mm3 (0.0-0.4); LARGE UNSTAINED CELL % 1.2 % (0.0-4.0); LYMPH # 3.9 K/mm3 (1.5-4.5); LYMPH % 28.8 % (24.0-44.0); MEAN CORPUSCULAR HEMOGLOBIN 28.3 pg (27.0-33.0); MEAN CORPUSCULAR HGB CONC 33.8 g/dl (32.0-36.5); MEAN CORPUSCULAR VOLUME 83.9 fl (80.0-96.0); MONO # 0.6 K/mm3 (0.0-0.8); MONO % 4.5 % (0.0-5.0); NEUTROPHILS # 8.1 K/mm3 (1.8-7.7); NEUTROPHILS % 62.3 % (36.0-66.0); PLATELET COUNT, AUTOMATED 295 k/mm3 (150-450); RED CELL DISTRIBUTION WIDTH 13.6 % (11.5-14.5); WHITE BLOOD COUNT 12.9 K/mm3 (4.0-10.0)
[2016-07-04 13:47] LABS: ALBUMIN/GLOBULIN RATIO 1.25 (1.00-1.93); ALKALINE PHOSPHATASE 67 U/L (45-117); ALT/SGPT 39 U/L (12-78); ANION GAP 7 MEQ/L (8-16); AST/SGOT 10 U/L (15-37); BILIRUBIN,TOTAL 0.4 MG/DL (0.2-1.0); BLOOD UREA NITROGEN 17 MG/DL (7-18); CARBON DIOXIDE LEVEL 29 MEQ/L (21-32); CHLORIDE LEVEL 106 MEQ/L (98-107); CREATININE FOR GFR 0.85 MG/DL (0.55-1.02); GLOMERULAR FILTRATION RATE > 60.0 (>60); GLUCOSE, FASTING 91 MG/DL (70-105); SODIUM LEVEL 142 MEQ/L (136-145); TOTAL PROTEIN 7.2 GM/DL (6.4-8.2)
[2016-07-04 15:55] LABS: ERYTHROCYTE SEDIMENTATION RATE 7 mm/hr (0-20)
== END ==
LOC: M WUC 10:02
PROVIDERS: ATTEND Physician Assistant
DX: J20.9 Acute bronchitis, unspecified (principal)

== ENCOUNTER 2016-07-06 22:55 | Emergency (ER) | payer OTHER ==
[2016-07-07] MEDS ORDERED: ONDANSETRON 4 MG ORAL DISINTEGRATING TAB (S0181) As Ordered ONE (01:07)
[2016-07-07 01:55] LABS: BASO % 0.2 % (0.0-1.0); EOS # 0.3 K/mm3 (0.0-0.50); EOS % 1.3 % (0.0-3.0); LARGE UNSTAINED CELL # 0.1 K/mm3 (0.0-0.4); LARGE UNSTAINED CELL % 0.4 % (0.0-4.0); LYMPH # 1.5 K/mm3 (1.5-4.5); LYMPH % 6.9 % (24.0-44.0); MEAN CORPUSCULAR HEMOGLOBIN 29.2 pg (27.0-33.0); MEAN CORPUSCULAR HGB CONC 35.8 g/dl (32.0-36.5); MEAN CORPUSCULAR VOLUME 81.7 fl (80.0-96.0); MONO # 0.7 K/mm3 (0.0-0.8); MONO % 3.3 % (0.0-5.0); NEUTROPHILS # 19.3 K/mm3 (1.8-7.7); PLATELET COUNT, AUTOMATED 307 k/mm3 (150-450); RED CELL DISTRIBUTION WIDTH 12.4 % (11.5-14.5); WHITE BLOOD COUNT 21.9 K/mm3 (4.0-10.0)
[2016-07-07] MEDS ORDERED: METOCLOPRAMIDE INJ 10MG/2ML VIAL (J2765) As Ordered ONE (02:26)
[2016-07-07 02:31] LABS: AMPHETAMINES LEVEL URINE NEGATIVE (NEGATIVE); BENZODIAZEPINES URINE NEGATIVE (NEGATIVE); COCAINE METABOLITE URINE NEGATIVE (NEGATIVE); CONTROL LINE INT CTR LINE PRESENT; METHADONE URINE NEGATIVE (NEGATIVE); OPIATES URINE NEGATIVE (NEGATIVE); TRICYCLIC ANTIDEPRESS URINE NEGATIVE (NEGATIVE)
[2016-07-07 02:32] LABS: ALBUMIN 4.5 GM/DL (3.2-5.2); ALBUMIN/GLOBULIN RATIO 1.25 (1.00-1.93); ALKALINE PHOSPHATASE 74 U/L (45-117); ALT/SGPT 33 U/L (12-78); AMYLASE 33 U/L (25-115); ANION GAP 13 MEQ/L (8-16); AST/SGOT 19 U/L (15-37); BILIRUBIN,DIRECT 0.2 MG/DL (0.0-0.2); BILIRUBIN,TOTAL 0.9 MG/DL (0.2-1.0); BLOOD UREA NITROGEN 18 MG/DL (7-18); CALCIUM LEVEL 9.3 MG/DL (8.5-10.1); CARBON DIOXIDE LEVEL 24 MEQ/L (21-32); CHLORIDE LEVEL 99 MEQ/L (98-107); CREATININE FOR GFR 0.92 MG/DL (0.55-1.02); GLOMERULAR FILTRATION RATE > 60.0 (>60); GLUCOSE, FASTING 146 MG/DL (70-105); POTASSIUM SERUM 3.8 MEQ/L (3.5-5.1); SODIUM LEVEL 136 MEQ/L (136-145); TOTAL PROTEIN 8.1 GM/DL (6.4-8.2)
[2016-07-07] MEDS ORDERED: ISOVUE-370 76% 100ML VIAL (Q9967) As Ordered ONE (03:27)
--- NOTE | 2016-07-07 04:20 | REPUSA ---
CLINICAL HISTORY: Abdominal pain. TECHNIQUE: Multiple axial, sagittal and coronal CT images were obtained through the abdomen and pelvi s after administration of intravenous contrast material. Images were obtained before and after IV con trast administration. Motion degraded study. COMMENTS: The liver is of uniform attenuation without mass or defect. There is no intra or extrahepatic biliary ductal dilatation. The spleen is normal. The gallbladder is surgically absent. The pancreas is of no rmal contour and attenuation characteristics. There is no evidence of adrenal mass. Both kidneys demonstrate prompt and equal nephrograms. The kidneys are normal in size, shape and conf iguration. There is no evidence of renal or ureteral mass. No renal or ureteral calculi are identifie d. There is no hydroureter or hydronephrosis. No evidence for appendicitis. There is wall thickening noted involving all fluid filled small bowel segments compatible with enteritis. No evidence for small or large bowel obstruction. There is no malinda dence of abdominal ascites or lymphadenopathy. There is no evidence of intrinsic or extrinsic bladder mass. There is no pelvic ascites or lymphadeno elliot. The uterus and ovaries are not identified. Images of the lung bases show no evidence of pleural or parenchymal mass. There are no pleural effusi ons. The bony structures are free of lytic or blastic lesions. IMPRESSION: Panenteritis. Infectious and inflammatory etiologies are considered. Thank you for your kind referral of this patient.
[2016-07-07] MEDS ORDERED: diphenhydrAMINE INJ 50MG/ML VIAL (J1200) As Ordered ONE (04:31)
--- NOTE | 2016-07-07 06:44 | EDDOCDS ---
Physician Documentation [facility] Name: Marilee Rivas Age: 30 yrs Sex: Female : 1985 Arrival Date: 07/06/2016 Time: 22:55 Bed 12 Private MD: NO PRIMARY PHYSICIAN, . Disposition: 07/07/16 05:38 Discharged to Home/Self Care. Impression: Noninfective gastroenteritis and colitis, unspecified. - Condition is Stable. - Discharge Instructions: Clear Liquid Diet. - Prescriptions for Reglan 10 mg Oral Tablet - take 1 tablet by ORAL route every 6 hours take 30 minutes before meals and at bedtime; 20 tablet. - Medication Reconciliation, Local Pharmacy Hours form. - Follow up: Private Physician; When: Call to arrange an appointment; Reason: Recheck today's complaints. - Problem is new. - Symptoms have improved. Historical: - Allergies: no known allergies; - Home Meds: 1. albuterol sulfate 90 mcg/actuation Inhl aepb 1 puff every 4-6 hours 2. BuSpar Oral 7.5 mg daily 3. Celexa 40 mg Oral tab 1 tab once daily 4. gabapentin 400 mg Oral cap 1 cap 3 times per day 5. Levaquin 500 mg Oral tab 1 tab once daily 6. Suboxone 8-2 mg SL film 1 film once daily - PMHx: Anxiety; Depression; Fibromyalgia; neuropathy; opiate dependency; - PSHx: Cesearean Section; Cholecystectomy; Appendectomy; Hysterectomy; - Social history: Smoking status: Patient states was never smoker of tobacco. No barriers to communication noted, The patient speaks fluent Algerian. - Family history: Not pertinent. - : The pt / caregiver states he / she is not on anticoagulants. Home medication list is obtained from [employer] import data. - Exposure Risk Screening:: None identified. 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 6 in. (167.64 cm); Pain jp6 10/; 23:46 Pulse 106 MON; Pulse Ox 94% ; jp6 23:59 BP 138 / 86 (auto/); jp6 23:59 Pulse 100 MON; Pulse Ox 94% ; jp6 07/07 00:00 BP 142 / 72 (auto/); jp6 00:00 Pulse 98 MON; Pulse Ox 93% ; jp6 00:15 BP 133 / 63 (auto/); jp6 02:11 BP 141 / 67 (auto/); jp6 02:13 BP 141 / 67; Pulse 56; Resp 18; Temp 96.3(O); Pulse Ox 100% on R/A; Pain 10/10; jp6 02:13 Pulse Ox 100% ; jp6 02:17 Pulse Ox 100% ; jp6 03:19 Pulse 72 MON; Pulse Ox 100% ; jp6 03:23 Pulse 52 MON; Pulse Ox 97% ; jp6 03:26 BP 140 / 92 (auto/); jp6 03:28 Pulse 62 MON; Pulse Ox 100% ; jp6 04:38 BP 107 / 56 (auto/); jp6 04:40 Pulse 90 MON; Pulse Ox 100% ; jp6 04:41 Pulse 84 MON; Pulse Ox 100% ; jp6 05:30 Pulse 88 MON; Pulse Ox 100% ; jp6 05:47 BP 104 / 56 (auto/); jp6 05:48 Pulse 84 MON; Pulse Ox 100% ; jp6 06:02 BP 109 / 58 (auto/); jp6 06:03 Pulse 84 MON; Pulse Ox 100% ; jp6 06:16 Pulse 84 MON; Pulse Ox 100% ; jp6 06:16 Resp 18; Temp 98.7(O); Pain 0/10; jp6 06:17 BP 101 / 54 (auto/); jp6 07/06 23:45 Body Mass Index 32.28 (90.72 kg, 167.64 cm) jp6 MDM: 00:38 Ondansetron ODT Oral Disintegrating Tablet 8 mg PO once ordered. cs11 00:39 CBC with Diff Ordered. EDMS 00:39 MED Profile Ordered. EDMS 00:39 Liver Profile Ordered. EDMS 00:39 Amylase Ordered. EDMS 00:39 Lipase Ordered. EDMS 00:39 Urinalysis Ordered. EDMS 00:39 Urine Culture Ordered. EDMS 01:28 Urine Toxicology Ordered. EDMS 01:54 ETHYL ALCOHOL (ETHANOL) Ordered. EDMS 02:23 CBC with Diff Reviewed. cs11 02:25 Metoclopramide 10 mg IV at 40 mg/hr once over 15 mins ordered. cs11 02:56 MED Profile Reviewed. cs11 02:56 Liver Profile Reviewed. cs11 02:56 Lipase Reviewed. cs11 02:56 Urinalysis Reviewed. cs11 02:56 Urine Toxicology Reviewed. cs11 02:56 Amylase Reviewed. cs11 02:56 ETHYL ALCOHOL (ETHANOL) Reviewed. cs11 02:58 CT ABD & PELVIS: IV Contrast Only Ordered. EDMS 04:12 Financial registration complete. hs2 04:13 [facility] Payment Agreement was scanned into [employer] and attached to record. hs2 04:27 NS 0.9% 1000 ml IV at bolus once ordered. cs11 04:27 Haloperidol 2.5 mg IVP once ordered. cs11 04:27 diphenhydrAMINE 25 mg IVP once ordered. cs11 05:35 CT ABD & PELVIS: IV Contrast Only Reviewed. cs11 Administered Medications: 01:12 Drug: Ondansetron ODT 8 mg [ondansetron 4 mg disintegrating tablet (2 tabs)] Route: PO; kmg1 02:31 Drug: Metoclopramide 10 mg [metoclopramide 5 mg/mL injection solution] Route: IV; Rate: jp6 40 mg/hr; Infused Over: 15 mins; Site: right antecubital; 04:30 Drug: Haloperidol 2.5 mg [haloperidol lactate 5 mg/mL injection solution (0.5 mL)] jp6 Route: IVP; Site: right antecubital; 04:30 Drug: diphenhydrAMINE 25 mg [diphenhydramine 50 mg/mL injection solution (0.5 mL)] jp6 Route: IVP; Site: right antecubital; 04:46 Drug: NS 0.9% 1000 ml [sodium chloride 0.9 % intravenous solution] Route: IV; Rate: jp6 bolus; Site: right antecubital; Signatures: Dispatcher [employer] EDMS Zi Cortez DO DO cs11 Mimi Cooper, Nicola Reg hs2 Su GodwinRN RN kas2 Juanita Angelo RN RN jp6 Trish Sawant RN kmg1 The chart was reviewed and I authenticate all verbal orders and agree with the evaluation and treatment provided.Corrections: (The following items were deleted from the chart) 01:54 01:28 ETHYL ALCOHOL (ETHANOL)+LAB ordered. EDMS EDMS Attachments: 04:13 [facility] Payment Agreement hs2 MTDD
--- NOTE | 2016-07-07 06:44 | EDDOCDS ---
Nurse's Notes [facility] Name: Marilee Rivas Age: 30 yrs Sex: Female : 1985 Arrival Date: 07/06/2016 Time: 22:55 Bed 12 Private MD: NO PRIMARY PHYSICIAN, . Diagnosis: Noninfective gastroenteritis and colitis, unspecified Presentation: 07/06 22:59 Presenting complaint: EMS states: reported to EMS that she had sudden onset of kas2 abdominal pain "1000/10." Nauseated. FSBS 135 mg/dL. Risk factors: the patient reports no vaginal bleeding. Adult Sepsis Screening: The patient does not have new or worsening altered mentation. Patient's respiratory rate is less than 22. Systolic blood pressure is greater than 100. Patient has a qSOFA score of 0- Negative Sepsis Screen. Suicide/Homicide risk assessment- the patient denies having any suicidal and/or homicidal ideations and does not present with any other emotional, behavioral or mental health complaints. Status: Patient is not a service engineer or dependent. Transition of care: patient was not received from another setting of care. 22:59 Acuity: RONAK Level 3 [facility] 22:59 Method Of Arrival: Ambulance [facility] Triage Assessment: 23:03 General: Appears uncomfortable, unkempt, Behavior is anxious, drowsy, restless. Pain: kas2 Location: all over body Pain currently is 10 out of 10 on a pain scale. Pt Declines HIV testing. Neurological: Level of Consciousness is awake, alert, Oriented to person, place, time, Pupils are pinpoint. Cardiovascular:. Respiratory: Airway is patent Respiratory effort is even, unlabored, Respiratory pattern is regular, symmetrical. Derm: Skin is intact, is healthy with good turgor, Skin is clammy, Skin is pale, Skin temperature is warm. MOTION PICTURE CRITIC: 07/07 06:42 LMP 06/11/2016 jp6 Historical: - Allergies: no known allergies; - Home Meds: 1. albuterol sulfate 90 mcg/actuation Inhl aepb 1 puff every 4-6 hours 2. BuSpar Oral 7.5 mg daily 3. Celexa 40 mg Oral tab 1 tab once daily 4. gabapentin 400 mg Oral cap 1 cap 3 times per day 5. Levaquin 500 mg Oral tab 1 tab once daily 6. Suboxone 8-2 mg SL film 1 film once daily - PMHx: Anxiety; Depression; Fibromyalgia; neuropathy; opiate dependency; - PSHx: Cesearean Section; Cholecystectomy; Appendectomy; Hysterectomy; - Social history: Smoking status: Patient states was never smoker of tobacco. No barriers to communication noted, The patient speaks fluent [place]. - Family history: Not pertinent. - : The pt / caregiver states he / she is not on anticoagulants. Home medication list is obtained from [employer] import data. - Exposure Risk Screening:: None identified. Screenin:15 Screening information is obtained from the patient. Fall risk: No risks identified. jp6 Assistance ADL's: requires no assistance with activities of daily living. Abuse/DV Screen: The patient / caregiver reports he/she is: not in a situation that causes fear, pain or injury. Nutritional screening: No deficits noted. Advance Directives: Currently, there is no health care proxy. There is no active DNR order. There is no living will. home support is adequate. Assessment: 00:09 General: Appears distressed, uncomfortable, Behavior is inappropriate for age, jp6 restless, Reports feeling ill for 0-12 hours, abdominal pain. Pain: Location: abdomen Pain currently is 10 out of 10 on a pain scale. Neurological: No deficits noted. EENT: No deficits noted. Cardiovascular: No deficits noted. Capillary refill < 3 seconds Heart tones S1 S2 present Rhythm is regular. Respiratory: No deficits noted. Airway is patent Respiratory effort is even, unlabored, Respiratory pattern is regular, symmetrical, Breath sounds are clear bilaterally. GI: Abdomen is non- distended Stools are reported to be diarrhea. Last BM was July 06, 2016. at 23:30. Bowel sounds present X 4 quads. hyperactive in umbilical area, right upper quadrant, left upper quadrant, right lower quadrant and left lower quadrant Abd is soft X 4 quads Abd is tender to palpation X 4 quads. : No deficits noted. Derm: Skin is intact, Skin is clammy, Skin is pale, Skin temperature is cool. Musculoskeletal: No deficits noted. 01:00 Reassessment: Patient states symptoms have not improved. General: pt incontinent lg amt jp6 liquid stool. C/O abdominal pain -very restless.. Respiratory: Airway is patent Respiratory effort is even, unlabored, Respiratory pattern is regular, symmetrical. Derm: Skin is intact, Skin is dry, Skin is pale, Skin temperature is cool. 02:16 Reassessment: no further stools noted. Has vomited x2 moderate amt yellow emesis.Upon jp6 attempting to start IV pt stated she would not answer questions for nurse unless she was given pain medication.IV inserted and pt was restless rolled over and ripped IV out.New IV inserted right AC. labs obtained and sent.. General: Appears in no apparent distress, Behavior is restless. Neurological: No deficits noted. Level of Consciousness is awake, alert, Oriented to person, place, time. Respiratory: Airway is patent Respiratory effort is even, unlabored, Respiratory pattern is regular, symmetrical. Derm: Skin is intact, Skin is clammy, Skin is pale, Skin temperature is cool. 03:23 Reassessment: pt yelling out "I can't breathe" upon assessment lips are cyanotic-pt jp6 hyperventilating encouraged to slow breathing down O2 sat-100% on r/a,continued w/ c/o's O2 applied at 2l/min via n/c. aware and came in and re-examined pt.Pt cont' w/ c/o's abdominal pain. Mom at bedside... 04:30 Reassessment: Patient appears in no apparent distress at this time. General: Appears in jp6 no apparent distress, comfortable, Behavior is appropriate for age, cooperative, restless. Neurological: Level of Consciousness is awake, alert, Oriented to person, place, time. Cardiovascular: Rhythm is sinus rhythm No ectopy. Respiratory: Airway is patent Respiratory effort is even, unlabored, Respiratory pattern is regular, symmetrical. Derm: Skin is intact, Skin is dry, Skin is pink, warm & dry. Skin temperature is warm. 05:26 Reassessment: Patient appears in no apparent distress at this time. pt is sleeping. VS jp6 are stable. Fluids infusing per order.. 06:37 Reassessment: Pt states "feeling better". . Pain: Denies pain. Respiratory: Airway is jp6 patent Respiratory effort is even, unlabored, Respiratory pattern is regular, symmetrical. GI: Denies nausea, vomiting, pain. Derm: Skin is pink, warm & dry. Vital Signs: 07/06 23:44 BP 172 / 114 (auto/); jp6 23:45 Resp 16; Temp 97(O); Weight 90.72 kg; Height 5 ft. 6 in. (167.64 cm); Pain 10/10; jp6 23:46 Pulse 106 MON; Pulse Ox 94% ; jp6 23:59 BP 138 / 86 (auto/); jp6 23:59 Pulse 100 MON; Pulse Ox 94% ; jp6 07/07 00:00 BP 142 / 72 (auto/); jp6 00:00 Pulse 98 MON; Pulse Ox 93% ; jp6 00:15 BP 133 / 63 (auto/); jp6 02:11 BP 141 / 67 (auto/); jp6 02:13 BP 141 / 67; Pulse 56; Resp 18; Temp 96.3(O); Pulse Ox 100% on R/A; Pain 10/10; jp6 02:13 Pulse Ox 100% ; jp6 02:17 Pulse Ox 100% ; jp6 03:19 Pulse 72 MON; Pulse Ox 100% ; jp6 03:23 Pulse 52 MON; Pulse Ox 97% ; jp6 03:26 BP 140 / 92 (auto/); jp6 03:28 Pulse 62 MON; Pulse Ox 100% ; jp6 04:38 BP 107 / 56 (auto/); jp6 04:40 Pulse 90 MON; Pulse Ox 100% ; jp6 04:41 Pulse 84 MON; Pulse Ox 100% ; jp6 05:30 Pulse 88 MON; Pulse Ox 100% ; jp6 05:47 BP 104 / 56 (auto/); jp6 05:48 Pulse 84 MON; Pulse Ox 100% ; jp6 06:02 BP 109 / 58 (auto/); jp6 06:03 Pulse 84 MON; Pulse Ox 100% ; jp6 06:16 Pulse 84 MON; Pulse Ox 100% ; jp6 06:16 Resp 18; Temp 98.7(O); Pain 0/10; jp6 06:17 BP 101 / 54 (auto/); jp6 07/06 23:45 Body Mass Index 32.28 (90.72 kg, 167.64 cm) jp6 Vitals: 02:13 Log In Time N/A - ambulance arrival. 6 ED Course: 07/06 22:57 Patient visited by Doreen Ferraro PCA. tmm1 22:57 NO PRIMARY PHYSICIAN, . is Private Physician. tmm1 22:57 Patient moved to Waiting tmm1 22:58 Patient moved to 12 tmm1 22:59 Zi Cortez DO is Attending Physician. cs11 22:59 Patient visited by Zi Cortez DO. cs11 23:02 Triage Initiated kas2 23:24 Juanita Angelo,RN is Primary Nurse. jp6 23:24 Patient visited by Juanita Angelo RN. jp6 23:45 The patient / caregiver is instructed regarding the plan of care and ED course. Pulse jp6 ox on. NIBP on. 07/07 01:18 Patient visited by Su Godwin RN. kas2 01:50 Inserted saline lock: 20 gauge in right antecubital area and blood collected. Labs jp6 drawn. (by ED staff). Sent per order to lab. 01:54 Patient visited by Barbara Kaufman, Cma. jlm 01:54 Assisted with bedpan. Linen changed. jlm 02:13 Urine Toxicology Sent. jp6 02:13 Urine Culture Sent. jp6 02:13 Urinalysis Sent. jp6 02:14 Straight cath inserted 16 Fr. returned clear yellow urine. Patient tolerated well. jp6 02:15 No procedures done that require assistance. jp6 02:21 Patient visited by Juanita Angelo,YASH. jp6 03:23 Patient visited by Juanita Angelo,YASH. jp6 03:[address] and ret' was not still for CT. jp6 04:02 Patient visited by Juanita Angelo,YASH. jp6 04:03 Voided x1 in bedpan. jp6 04:13 [facility] Payment Agreement was scanned into [employer] and attached to record. hs2 04:45 CT ABD & PELVIS: IV Contrast Only Returned. EDMS 05:32 Patient visited by Juanita Angelo,YASH. jp6 06:16 Discontinued IV. Discontinued intact, bleeding controlled, pressure dressing applied, jp6 No redness/swelling at site. Administered Medications: 01:12 Drug: Ondansetron ODT 8 mg [ondansetron 4 mg disintegrating tablet (2 tabs)] Route: PO; kmg1 02:31 Drug: Metoclopramide 10 mg [metoclopramide 5 mg/mL injection solution] Route: IV; Rate: jp6 40 mg/hr; Infused Over: 15 mins; Site: right antecubital; 04:30 Drug: Haloperidol 2.5 mg [haloperidol lactate 5 mg/mL injection solution (0.5 mL)] jp6 Route: IVP; Site: right antecubital; 04:30 Drug: diphenhydrAMINE 25 mg [diphenhydramine 50 mg/mL injection solution (0.5 mL)] jp6 Route: IVP; Site: right antecubital; 04:46 Drug: NS 0.9% 1000 ml [sodium chloride 0.9 % intravenous solution] Route: IV; Rate: jp6 bolus; Site: right antecubital; Intake: 02:17 PO: 0.00ml; Total: 0.00ml. jp6 Output: 02:17 Urine: 300.00ml; Stool: 3 (Loose Stool) ; Total: 300.00ml. jp6 Order Results: Lab Order: CBC with Diff; SPEC'M 07/07/16 01:39 Test: WHITE BLOOD COUNT; Value: 21.9; Range: 4.0-10.0; Abnormal: Above high normal; Units: K/mm3; Status: F Test: RED BLOOD COUNT; Value: 5.22; Range: 4.00-5.40; Units: M/mm3; Status: F Test: HEMOGLOBIN; Value: 15.3; Range: 12.0-16.0; Units: g/dl; Status: F Test: HEMATOCRIT; Value: 42.6; Range: 36.0-47.0; Units: %; Status: F Test: MEAN CORPUSCULAR VOLUME; Value: 81.7; Range: 80.0-96.0; Units: fl; Status: F Test: MEAN CORPUSCULAR HEMOGLOBIN; Value: 29.2; Range: 27.0-33.0; Units: pg; Status: F Test: MEAN CORPUSCULAR HGB CONC; Value: 35.8; Range: 32.0-36.5; Units: g/dl; Status: F Test: RED CELL DISTRIBUTION WIDTH; Value: 12.4; Range: 11.5-14.5; Units: %; Status: F Test: PLATELET COUNT, AUTOMATED; Value: 307; Range: 150-450; Units: k/mm3; Status: F Test: NEUTROPHILS %; Value: 88.0; Range: 36.0-66.0; Abnormal: Above high normal; Units: %; Status: F Test: LYMPH %; Value: 6.9; Range: 24.0-44.0; Abnormal: Below low normal; Units: %; Status: F Test: MONO %; Value: 3.3; Range: 0.0-5.0; Units: %; Status: F Test: EOS %; Value: 1.3; Range: 0.0-3.0; Units: %; Status: F Test: BASO %; Value: 0.2; Range: 0.0-1.0; Units: %; Status: F Test: LARGE UNSTAINED CELL %; Value: 0.4; Range: 0.0-4.0; Units: %; Status: F Test: NEUTROPHILS #; Value: 19.3; Range: 1.8-7.7; Abnormal: Above high normal; Units: K/mm3; Status: F Test: LYMPH #; Value: 1.5; Range: 1.5-4.5; Units: K/mm3; Status: F Test: MONO #; Value: 0.7; Range: 0.0-0.8; Units: K/mm3; Status: F Test: EOS #; Value: 0.3; Range: 0.0-0.50; Units: K/mm3; Status: F Test: BASO #; Value: 0.0; Range: 0.0-0.2; Units: K/mm3; Status: F Test: LARGE UNSTAINED CELL #; Value: 0.1; Range: 0.0-0.4; Units: K/mm3; Status: F Lab Order: MED Profile; SPEC'M 07/07/16 01:39 Test: GLUCOSE, FASTING; Value: 146; Range: 70-105; Abnormal: Above high normal; Units: MG/DL; Status: F Test: BLOOD UREA NITROGEN; Value: 18; Range: 7-18; Units: MG/DL; Status: F Test: CREATININE FOR GFR; Value: 0.92; Range: 0.55-1.02; Units: MG/DL; Status: F Test: GLOMERULAR FILTRATION RATE; Value: > 60.0; Range: >60; Status: F Test: SODIUM LEVEL; Value: 136; Range: 136-145; Units: MEQ/L; Status: F Test: POTASSIUM SERUM; Value: 3.8; Range: 3.5-5.1; Units: MEQ/L; Status: F Test: CHLORIDE LEVEL; Value: 99; Range: 98-107; Units: MEQ/L; Status: F Test: CARBON DIOXIDE LEVEL; Value: 24; Range: 21-32; Units: MEQ/L; Status: F Test: ANION GAP; Value: 13; Range: 8-16; Units: MEQ/L; Status: F Test: CALCIUM LEVEL; Value: 9.3; Range: 8.5-10.1; Units: MG/DL; Status: F Test Note: ; Units are mL/min/1.73 m2 Chronic Kidney Disease Staging per NKF: Stage I & II GFR >=60 Normal to Mildly Decreased Stage III GFR 30-59 Moderately Decreased Stage IV GFR 15-29 Severely Decreased Stage V GFR <15 Very Little GFR Left ESRD GFR <15 on [employer] Lab Order: Liver Profile; SPEC'M 07/07/16 01:39 Test: AST/SGOT; Value: 19; Range: 15-37; Units: U/L; Status: F Test: ALT/SGPT; Value: 33; Range: 12-78; Units: U/L; Status: F Test: ALKALINE PHOSPHATASE; Value: 74; Range: 45-117; Units: U/L; Status: F Test: BILIRUBIN,TOTAL; Value: 0.9; Range: 0.2-1.0; Abnormal: Delta; Units: MG/DL; Status: F Test: BILIRUBIN,DIRECT; Value: 0.2; Range: 0.0-0.2; Units: MG/DL; Status: F Test: TOTAL PROTEIN; Value: 8.1; Range: 6.4-8.2; Units: GM/DL; Status: F Test: ALBUMIN; Value: 4.5; Range: 3.2-5.2; Units: GM/DL; Status: F Test: ALBUMIN/GLOBULIN RATIO; Value: 1.25; Range: 1.00-1.93; Status: F Lab Order: Amylase; SPEC'07/07/16 01:39 Test: AMYLASE; Value: 33; Range: 25-115; Units: U/L; Status: F Lab Order: Lipase; SPEC'07/07/16 01:39 Test: LIPASE; Value: 56; Range: 73-393; Abnormal: Below low normal; Units: U/L; Status: F Lab Order: Urinalysis; SPEC'M 07/07/16 01:39 Test: APPEARANCE, URINE; Value: CLEAR; Range: CLEAR; Status: F Test: COLOR, URINE; Value: YELLOW; Range: YELLOW; Status: F Test: PH,URINE; Value: 8.0; Range: 5.0-9.0; Units: UNITS; Status: F Test: SPECIFIC GRAVITY URINE AUTO; Value: 1.018; Range: 1.002-1.035; Status: F Test: PROTEIN, URINE AUTO; Value: 1+; Range: NEGATIVE; Abnormal: Above high normal; Units: mg/dL; Status: F Test: GLUCOSE, URINE (UA) AUTO; Value: NEGATIVE; Range: NEGATIVE; Units: mg/dL; Status: F Test: KETONE, URINE AUTO; Value: 1+; Range: NEGATIVE; Abnormal: Above high normal; Units: mg/dL; Status: F Test: UROBILINOGEN, URINE AUTO; Value: 0.2; Range: 0.0-2.0; Units: mg/dL; Status: F Test: BILIRUBIN, URINE AUTO; Value: NEGATIVE; Range: NEGATIVE; Status: F Test: NITRITE, URINE AUTO; Value: NEGATIVE; Range: NEGATIVE; Status: F Test: LEUKOCYTE ESTERASE, URINE AUTO; Value: NEGATIVE; Range: NEGATIVE; Status: F Test: BLOOD, URINE BLOOD; Value: NEGATIVE; Range: NEGATIVE; Status: F Test: WBC, URINE AUTO; Value: 0; Range: 0-3; Units: /HPF; Status: F Test: RBC, URINE AUTO; Value: 0; Range: 0-3; Units: /HPF; Status: F Test: BACTERIA, URINE AUTO; Value: NEGATIVE; Range: NEGATIVE; Status: F Test: SQUAMOUS EPITHELIAL CELL UR AU; Value: 0; Range: 0-6; Units: /HPF; Status: F Test: MUCUS, URINE; Value: SMALL; Range: NEGATIVE; Status: F Test: HYALINE CAST, URINE AUTO; Value: 0; Range: 0-1; Units: /LPF; Status: F Lab Order: Urine Toxicology; SPEC'M 07/07/16 01:39 Test: AMPHETAMINES LEVEL URINE; Value: NEGATIVE; Range: NEGATIVE; Status: F Test: BARBITURATES URINE; Value: NEGATIVE; Range: NEGATIVE; Status: F Test: BENZODIAZEPINES URINE; Value: NEGATIVE; Range: NEGATIVE; Status: F Test: CANNABINOIDS URINE; Value: POSITIVE; Range: NEGATIVE; Abnormal: Above high normal; Status: F Test: COCAINE METABOLITE URINE; Value: NEGATIVE; Range: NEGATIVE; Status: F Test: METHADONE URINE; Value: NEGATIVE; Range: NEGATIVE; Status: F Test: OPIATES URINE; Value: NEGATIVE; Range: NEGATIVE; Status: F Test: TRICYCLIC ANTIDEPRESS URINE; Value: NEGATIVE; Range: NEGATIVE; Status: F Test Note: ; FALSE POSITIVE RESULTS CAN BE CAUSED BY THE USE OF PANTOPRAZOLE (PROTONIX). Lab Order: ETHYL ALCOHOL (ETHANOL); SPEC'M 07/07/16 01:39 Test: ETHYL ALCOHOL (ETHANOL); Value: < 0.003; Range: 0.000-0.010; Units: %; Status: F Radiology Order: CT ABD & PELVIS: IV Contrast Only Test: CT ABD & PELVIS: IV Contrast Only REASON FOR EXAMINATION: Abdomen Pain; ; CLINICAL HISTORY: Abdominal pain.; TECHNIQUE: Multiple axial, sagittal and coronal CT images were obtained through the abdomen and pelvi; s after administration of intravenous contrast material. Images were obtained before and after IV con; trast administration. Motion degraded study.; COMMENTS:; The liver is of uniform attenuation without mass or defect. There is no intra or extrahepatic biliary; ductal dilatation. The spleen is normal. The gallbladder is surgically absent. The pancreas is of no; rmal contour and attenuation characteristics. There is no evidence of adrenal mass.; Both kidneys demonstrate prompt and equal nephrograms. The kidneys are normal in size, shape and conf; iguration. There is no evidence of renal or ureteral mass. No renal or ureteral calculi are identifie; d. There is no hydroureter or hydronephrosis.; No evidence for appendicitis. There is wall thickening noted involving all fluid filled small bowel; segments compatible with enteritis. No evidence for small or large bowel obstruction. There is no malinda; dence of abdominal ascites or lymphadenopathy.; There is no evidence of intrinsic or extrinsic bladder mass. There is no pelvic ascites or lymphadeno; elliot. The uterus and ovaries are not identified.; Images of the lung bases show no evidence of pleural or parenchymal mass. There are no pleural effusi; ons.; The bony structures are free of lytic or blastic lesions.; IMPRESSION:; Panenteritis. Infectious and inflammatory etiologies are considered.; Thank you for your kind referral of this patient.; ; Outcome: 05:38 Discharge ordered by Provider. cs11 06:16 Discharge Assessment: Patient awake, alert and oriented x 3. No cognitive and/or jp6 functional deficits noted. Patient verbalized understanding of disposition instructions. patient administered narcotics - no. The following High Risk Discharge criteria are identified: None. Discharged to home ambulatory, with parent. Condition: improved. Discharge instructions given to patient, Instructed on discharge instructions, follow up and referral plans. medication usage, Demonstrated understanding of instructions, medications, Pt was receptive of discharge instructions/ teaching. Prescriptions given X 1. CT Study completed. Property sent home with patient. 06:43 Patient left the ED. jp6 Signatures: Dispatcher [employer] EDMS Trish Sawant, RN RN kmg1 Zi Cortez, DO cs11 McLear, Doreen, TESTER [employer]POS[employer]AKAGE TESTER [employer]E DISPOSAL LEAKAGE tmm1 Barbara Kaufman, Cma Unit jlm Mimi Cooper, Reg Reg hs2 Su Godwin RN RN [facility] Juanita Angelo RN RN jp6 Corrections: (The following items were deleted from the chart) 03:54 03:52 BP 162 / 81; Pulse 64bpm; Resp 20bpm; Pulse Ox 99%; Temp 98.2F Oral; Pain 0/10; [place] [id number] 03:54 03:53 Discharge Assessment: patient administered narcotics - no [place] [id number] 03:54 03:53 The following High Risk Discharge criteria are identified: None. Discharged to [facility] home ambulatory, [facility] 03:54 03:53 Condition: good Condition: stable Condition: improved [place] [id number] 03:54 03:53 Property :Personal belongings accompany Pt. [place] [id number] 03:54 03:53 CT Study completed. [place] [id number] 06:40 03:53 Discontinued IV bleeding controlled, pressure dressing applied, No jp6 redness/swelling at site. [facility] MTDD
--- NOTE | 2016-07-09 07:44 | EDDOCDS ---
Nurse's Notes [facility] Name: Marilee Rivas Age: 30 yrs Sex: Female : 1985 Arrival Date: 07/06/2016 Time: 22:55 Bed 12 Private MD: NO PRIMARY PHYSICIAN, . Diagnosis: Noninfective gastroenteritis and colitis, unspecified Presentation: 07/06 22:59 Presenting complaint: EMS states: reported to EMS that she had sudden onset of kas2 abdominal pain "1000/10." Nauseated. FSBS 135 mg/dL. Risk factors: the patient reports no vaginal bleeding. Adult Sepsis Screening: The patient does not have new or worsening altered mentation. Patient's respiratory rate is less than 22. Systolic blood pressure is greater than 100. Patient has a qSOFA score of 0- Negative Sepsis Screen. Suicide/Homicide risk assessment- the patient denies having any suicidal and/or homicidal ideations and does not present with any other emotional, behavioral or mental health complaints. 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 Transition of care: patient was not received from another setting of care. 22:59 Acuity: RONAK Level 3 [facility] 22:59 Method Of Arrival: Ambulance [facility] Triage Assessment: 23:03 General: Appears uncomfortable, unkempt, Behavior is anxious, drowsy, restless. Pain: kas2 Location: all over body Pain currently is 10 out of 10 on a pain scale. Pt Declines HIV testing. Neurological: Level of Consciousness is awake, alert, Oriented to person, place, time, Pupils are pinpoint. Cardiovascular:. Respiratory: Airway is patent Respiratory effort is even, unlabored, Respiratory pattern is regular, symmetrical. Derm: Skin is intact, is healthy with good turgor, Skin is clammy, Skin is pale, Skin temperature is warm. 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 albuterol sulfate 90 mcg/actuation Inhl aepb 1 puff every 4-6 hours 2. BuSpar Oral 7.5 mg daily 3. Celexa 40 mg Oral tab 1 tab once daily 4. gabapentin 400 mg Oral cap 1 cap 3 times per day 5. Levaquin 500 mg Oral tab 1 tab once daily 6. Suboxone 8-2 mg SL film 1 film once daily - PMHx: Anxiety; Depression; Fibromyalgia; neuropathy; opiate dependency; - PSHx: Cesearean Section; Cholecystectomy; Appendectomy; Hysterectomy; - Social history: Smoking status: Patient states was never smoker of tobacco. No barriers to communication noted, The patient speaks fluent [place]. - Family history: Not pertinent. - : The pt / caregiver states he / she is not on anticoagulants. Home medication list is obtained from [employer] import data. - Exposure Risk Screening:: None identified. Screenin:15 Screening information is obtained from the patient. Fall risk: No risks identified. jp6 Assistance ADL's: requires no assistance with activities of daily living. Abuse/DV Screen: The patient / caregiver reports he/she is: not in a situation that causes fear, pain or injury. Nutritional screening: No deficits noted. Advance Directives: Currently, there is no health care proxy. There is no active DNR order. There is no living will. home support is adequate. Assessment: 00:09 General: Appears distressed, uncomfortable, Behavior is inappropriate for age, jp6 restless, Reports feeling ill for 0-12 hours, abdominal pain. Pain: Location: abdomen Pain currently is 10 out of 10 on a pain scale. Neurological: No deficits noted. EENT: No deficits noted. Cardiovascular: No deficits noted. Capillary refill < 3 seconds Heart tones S1 S2 present Rhythm is regular. Respiratory: No deficits noted. Airway is patent Respiratory effort is even, unlabored, Respiratory pattern is regular, symmetrical, Breath sounds are clear bilaterally. GI: Abdomen is non- distended Stools are reported to be diarrhea. Last BM was July 06, 2016. at 23:30. Bowel sounds present X 4 quads. hyperactive in umbilical area, right upper quadrant, left upper quadrant, right lower quadrant and left lower quadrant Abd is soft X 4 quads Abd is tender to palpation X 4 quads. : No deficits noted. Derm: Skin is intact, Skin is clammy, Skin is pale, Skin temperature is cool. Musculoskeletal: No deficits noted. 01:00 Reassessment: Patient states symptoms have not improved. General: pt incontinent lg amt jp6 liquid stool. C/O abdominal pain -very restless.. Respiratory: Airway is patent Respiratory effort is even, unlabored, Respiratory pattern is regular, symmetrical. Derm: Skin is intact, Skin is dry, Skin is pale, Skin temperature is cool. 02:16 Reassessment: no further stools noted. Has vomited x2 moderate amt yellow emesis.Upon jp6 attempting to start IV pt stated she would not answer questions for nurse unless she was given pain medication.IV inserted and pt was restless rolled over and ripped IV out.New IV inserted right AC. labs obtained and sent.. General: Appears in no apparent distress, Behavior is restless. Neurological: No deficits noted. Level of Consciousness is awake, alert, Oriented to person, place, time. Respiratory: Airway is patent Respiratory effort is even, unlabored, Respiratory pattern is regular, symmetrical. Derm: Skin is intact, Skin is clammy, Skin is pale, Skin temperature is cool. 03:23 Reassessment: pt yelling out "I can't breathe" upon assessment lips are cyanotic-pt jp6 hyperventilating encouraged to slow breathing down O2 sat-100% on r/a,continued w/ c/o's O2 applied at 2l/min via n/c. aware and came in and re-examined pt.Pt cont' w/ c/o's abdominal pain. Mom at bedside... 04:30 Reassessment: Patient appears in no apparent distress at this time. General: Appears in jp6 no apparent distress, comfortable, Behavior is appropriate for age, cooperative, restless. Neurological: Level of Consciousness is awake, alert, Oriented to person, place, time. Cardiovascular: Rhythm is sinus rhythm No ectopy. Respiratory: Airway is patent Respiratory effort is even, unlabored, Respiratory pattern is regular, symmetrical. Derm: Skin is intact, Skin is dry, Skin is pink, warm & dry. Skin temperature is warm. 05:26 Reassessment: Patient appears in no apparent distress at this time. pt is sleeping. VS jp6 are stable. Fluids infusing per order.. 06:37 Reassessment: Pt states "feeling better". . Pain: Denies pain. Respiratory: Airway is jp6 patent Respiratory effort is even, unlabored, Respiratory pattern is regular, symmetrical. GI: Denies nausea, vomiting, pain. Derm: Skin is pink, warm & dry. Vital Signs: 07/06 23:44 BP 172 / 114 (auto/); jp6 23:45 Resp 16; Temp 97(O); Weight 90.72 kg; Height 5 ft. 6 in. (167.64 cm); Pain 10/10; jp6 23:46 Pulse 106 MON; Pulse Ox 94% ; jp6 23:59 BP 138 / 86 (auto/); jp6 23:59 Pulse 100 MON; Pulse Ox 94% ; jp6 07/07 00:00 BP 142 / 72 (auto/); jp6 00:00 Pulse 98 MON; Pulse Ox 93% ; jp6 00:15 BP 133 / 63 (auto/); jp6 02:11 BP 141 / 67 (auto/); jp6 02:13 BP 141 / 67; Pulse 56; Resp 18; Temp 96.3(O); Pulse Ox 100% on R/A; Pain 10/10; jp6 02:13 Pulse Ox 100% ; jp6 02:17 Pulse Ox 100% ; jp6 03:19 Pulse 72 MON; Pulse Ox 100% ; jp6 03:23 Pulse 52 MON; Pulse Ox 97% ; jp6 03:26 BP 140 / 92 (auto/); jp6 03:28 Pulse 62 MON; Pulse Ox 100% ; jp6 04:38 BP 107 / 56 (auto/); jp6 04:40 Pulse 90 MON; Pulse Ox 100% ; jp6 04:41 Pulse 84 MON; Pulse Ox 100% ; jp6 05:30 Pulse 88 MON; Pulse Ox 100% ; jp6 05:47 BP 104 / 56 (auto/); jp6 05:48 Pulse 84 MON; Pulse Ox 100% ; jp6 06:02 BP 109 / 58 (auto/); jp6 06:03 Pulse 84 MON; Pulse Ox 100% ; jp6 06:16 Pulse 84 MON; Pulse Ox 100% ; jp6 06:16 Resp 18; Temp 98.7(O); Pain 0/10; jp6 06:17 BP 101 / 54 (auto/); jp6 07/06 23:45 Body Mass Index 32.28 (90.72 kg, 167.64 cm) jp6 Vitals: 02:13 Log In Time N/A - ambulance arrival. 6 ED Course: 07/06 22:57 Patient visited by Doreen Ferraro PCA. tmm1 22:57 NO PRIMARY PHYSICIAN, . is Private Physician. tmm1 22:57 Patient moved to Waiting tmm1 22:58 Patient moved to 12 tmm1 22:59 Zi Cortez DO is Attending Physician. cs11 22:59 Patient visited by Zi Cortez DO. cs11 23:02 Triage Initiated kas2 23:24 Junaita Angelo,RN is Primary Nurse. jp6 23:24 Patient visited by Juanita Angelo RN. jp6 23:45 The patient / caregiver is instructed regarding the plan of care and ED course. Pulse jp6 ox on. NIBP on. 07/07 01:18 Patient visited by Su Godwin RN. kas2 01:50 Inserted saline lock: 20 gauge in right antecubital area and blood collected. Labs jp6 drawn. (by ED staff). Sent per order to lab. 01:54 Patient visited by Barbara Kaufman, Linen Sorter. jlm 01:54 Assisted with bedpan. Linen changed. jlm 02:13 Urine Toxicology Sent. jp6 02:13 Urine Culture Sent. jp6 02:13 Urinalysis Sent. jp6 02:14 Straight cath inserted 16 Fr. returned clear yellow urine. Patient tolerated well. jp6 02:15 No procedures done that require assistance. jp6 02:21 Patient visited by Juanita Angelo,YASH. jp6 03:23 Patient visited by Juanita Angelo,YASH. jp6 03:[address] and ret' was not still for CT. jp6 04:02 Patient visited by Juanita Angelo,YASH. jp6 04:03 Voided x1 in bedpan. jp6 04:13 [facility] Payment Agreement was scanned into [employer] and attached to record. hs2 04:45 CT ABD & PELVIS: IV Contrast Only Returned. EDMS 05:32 Patient visited by Juanita Angelo,YASH. jp6 06:16 Discontinued IV. Discontinued intact, bleeding controlled, pressure dressing applied, jp6 No redness/swelling at site. 09:04 T-Sheet-- Draft Copy was scanned into [employer] and attached to record. seh Administered Medications: 01:12 Drug: Ondansetron ODT 8 mg [ondansetron 4 mg disintegrating tablet (2 tabs)] Route: PO; kmg1 02:31 Drug: Metoclopramide 10 mg [metoclopramide 5 mg/mL injection solution] Route: IV; Rate: jp6 40 mg/hr; Infused Over: 15 mins; Site: right antecubital; 04:30 Drug: Haloperidol 2.5 mg [haloperidol lactate 5 mg/mL injection solution (0.5 mL)] jp6 Route: IVP; Site: right antecubital; 04:30 Drug: diphenhydrAMINE 25 mg [diphenhydramine 50 mg/mL injection solution (0.5 mL)] jp6 Route: IVP; Site: right antecubital; 04:46 Drug: NS 0.9% 1000 ml [sodium chloride 0.9 % intravenous solution] Route: IV; Rate: jp6 bolus; Site: right antecubital; Intake: 02:17 PO: 0.00ml; Total: 0.00ml. jp6 Output: 02:17 Urine: 300.00ml; Stool: 3 (Loose Stool) ; Total: 300.00ml. jp6 Order Results: Lab Order: CBC with Diff; SPEC'M 07/07/16 01:39 Test: WHITE BLOOD COUNT; Value: 21.9; Range: 4.0-10.0; Abnormal: Above high normal; Units: K/mm3; Status: F Test: RED BLOOD COUNT; Value: 5.22; Range: 4.00-5.40; Units: M/mm3; Status: F Test: HEMOGLOBIN; Value: 15.3; Range: 12.0-16.0; Units: g/dl; Status: F Test: HEMATOCRIT; Value: 42.6; Range: 36.0-47.0; Units: %; Status: F Test: MEAN CORPUSCULAR VOLUME; Value: 81.7; Range: 80.0-96.0; Units: fl; Status: F Test: MEAN CORPUSCULAR HEMOGLOBIN; Value: 29.2; Range: 27.0-33.0; Units: pg; Status: F Test: MEAN CORPUSCULAR HGB CONC; Value: 35.8; Range: 32.0-36.5; Units: g/dl; Status: F Test: RED CELL DISTRIBUTION WIDTH; Value: 12.4; Range: 11.5-14.5; Units: %; Status: F Test: PLATELET COUNT, AUTOMATED; Value: 307; Range: 150-450; Units: k/mm3; Status: F Test: NEUTROPHILS %; Value: 88.0; Range: 36.0-66.0; Abnormal: Above high normal; Units: %; Status: F Test: LYMPH %; Value: 6.9; Range: 24.0-44.0; Abnormal: Below low normal; Units: %; Status: F Test: MONO %; Value: 3.3; Range: 0.0-5.0; Units: %; Status: F Test: EOS %; Value: 1.3; Range: 0.0-3.0; Units: %; Status: F Test: BASO %; Value: 0.2; Range: 0.0-1.0; Units: %; Status: F Test: LARGE UNSTAINED CELL %; Value: 0.4; Range: 0.0-4.0; Units: %; Status: F Test: NEUTROPHILS #; Value: 19.3; Range: 1.8-7.7; Abnormal: Above high normal; Units: K/mm3; Status: F Test: LYMPH #; Value: 1.5; Range: 1.5-4.5; Units: K/mm3; Status: F Test: MONO #; Value: 0.7; Range: 0.0-0.8; Units: K/mm3; Status: F Test: EOS #; Value: 0.3; Range: 0.0-0.50; Units: K/mm3; Status: F Test: BASO #; Value: 0.0; Range: 0.0-0.2; Units: K/mm3; Status: F Test: LARGE UNSTAINED CELL #; Value: 0.1; Range: 0.0-0.4; Units: K/mm3; Status: F Lab Order: MED Profile; SPEC'M 07/07/16 01:39 Test: GLUCOSE, FASTING; Value: 146; Range: 70-105; Abnormal: Above high normal; Units: MG/DL; Status: F Test: BLOOD UREA NITROGEN; Value: 18; Range: 7-18; Units: MG/DL; Status: F Test: CREATININE FOR GFR; Value: 0.92; Range: 0.55-1.02; Units: MG/DL; Status: F Test: GLOMERULAR FILTRATION RATE; Value: > 60.0; Range: >60; Status: F Test: SODIUM LEVEL; Value: 136; Range: 136-145; Units: MEQ/L; Status: F Test: POTASSIUM SERUM; Value: 3.8; Range: 3.5-5.1; Units: MEQ/L; Status: F Test: CHLORIDE LEVEL; Value: 99; Range: 98-107; Units: MEQ/L; Status: F Test: CARBON DIOXIDE LEVEL; Value: 24; Range: 21-32; Units: MEQ/L; Status: F Test: ANION GAP; Value: 13; Range: 8-16; Units: MEQ/L; Status: F Test: CALCIUM LEVEL; Value: 9.3; Range: 8.5-10.1; Units: MG/DL; Status: F Test Note: ; Units are mL/min/1.73 m2 Chronic Kidney Disease Staging per NKF: Stage I & II GFR >=60 Normal to Mildly Decreased Stage III GFR 30-59 Moderately Decreased Stage IV GFR 15-29 Severely Decreased Stage V GFR <15 Very Little GFR Left ESRD GFR <15 on ART OBJECTS SUPERVISOR Lab Order: Liver Profile; SPEC'M 07/07/16 01:39 Test: AST/SGOT; Value: 19; Range: 15-37; Units: U/L; Status: F Test: ALT/SGPT; Value: 33; Range: 12-78; Units: U/L; Status: F Test: ALKALINE PHOSPHATASE; Value: 74; Range: 45-117; Units: U/L; Status: F Test: BILIRUBIN,TOTAL; Value: 0.9; Range: 0.2-1.0; Abnormal: Delta; Units: MG/DL; Status: F Test: BILIRUBIN,DIRECT; Value: 0.2; Range: 0.0-0.2; Units: MG/DL; Status: F Test: TOTAL PROTEIN; Value: 8.1; Range: 6.4-8.2; Units: GM/DL; Status: F Test: ALBUMIN; Value: 4.5; Range: 3.2-5.2; Units: GM/DL; Status: F Test: ALBUMIN/GLOBULIN RATIO; Value: 1.25; Range: 1.00-1.93; Status: F Lab Order: Amylase; SPEC'M 07/07/16 01:39 Test: AMYLASE; Value: 33; Range: 25-115; Units: U/L; Status: F Lab Order: Lipase; SPEC'M 07/07/16 01:39 Test: LIPASE; Value: 56; Range: 73-393; Abnormal: Below low normal; Units: U/L; Status: F Lab Order: Urinalysis; SPEC'M 07/07/16 01:39 Test: APPEARANCE, URINE; Value: CLEAR; Range: CLEAR; Status: F Test: COLOR, URINE; Value: YELLOW; Range: YELLOW; Status: F Test: PH,URINE; Value: 8.0; Range: 5.0-9.0; Units: UNITS; Status: F Test: SPECIFIC GRAVITY URINE AUTO; Value: 1.018; Range: 1.002-1.035; Status: F Test: PROTEIN, URINE AUTO; Value: 1+; Range: NEGATIVE; Abnormal: Above high normal; Units: mg/dL; Status: F Test: GLUCOSE, URINE (UA) AUTO; Value: NEGATIVE; Range: NEGATIVE; Units: mg/dL; Status: F Test: KETONE, URINE AUTO; Value: 1+; Range: NEGATIVE; Abnormal: Above high normal; Units: mg/dL; Status: F Test: UROBILINOGEN, URINE AUTO; Value: 0.2; Range: 0.0-2.0; Units: mg/dL; Status: F Test: BILIRUBIN, URINE AUTO; Value: NEGATIVE; Range: NEGATIVE; Status: F Test: NITRITE, URINE AUTO; Value: NEGATIVE; Range: NEGATIVE; Status: F Test: LEUKOCYTE ESTERASE, URINE AUTO; Value: NEGATIVE; Range: NEGATIVE; Status: F Test: BLOOD, URINE BLOOD; Value: NEGATIVE; Range: NEGATIVE; Status: F Test: WBC, URINE AUTO; Value: 0; Range: 0-3; Units: /HPF; Status: F Test: RBC, URINE AUTO; Value: 0; Range: 0-3; Units: /HPF; Status: F Test: BACTERIA, URINE AUTO; Value: NEGATIVE; Range: NEGATIVE; Status: F Test: SQUAMOUS EPITHELIAL CELL UR AU; Value: 0; Range: 0-6; Units: /HPF; Status: F Test: MUCUS, URINE; Value: SMALL; Range: NEGATIVE; Status: F Test: HYALINE CAST, URINE AUTO; Value: 0; Range: 0-1; Units: /LPF; Status: F Lab Order: Urine Culture; SPEC'M 07/07/16 01:39 Test: URINE CULTURE; Value: URINE CULTURE RESULT NO GROWTH; Status: F Lab Order: Urine Toxicology; SPEC'M 07/07/16 01:39 Test: AMPHETAMINES LEVEL URINE; Value: NEGATIVE; Range: NEGATIVE; Status: F Test: BARBITURATES URINE; Value: NEGATIVE; Range: NEGATIVE; Status: F Test: BENZODIAZEPINES URINE; Value: NEGATIVE; Range: NEGATIVE; Status: F Test: CANNABINOIDS URINE; Value: POSITIVE; Range: NEGATIVE; Abnormal: Above high normal; Status: F Test: COCAINE METABOLITE URINE; Value: NEGATIVE; Range: NEGATIVE; Status: F Test: METHADONE URINE; Value: NEGATIVE; Range: NEGATIVE; Status: F Test: OPIATES URINE; Value: NEGATIVE; Range: NEGATIVE; Status: F Test: TRICYCLIC ANTIDEPRESS URINE; Value: NEGATIVE; Range: NEGATIVE; Status: F Test Note: ; FALSE POSITIVE RESULTS CAN BE CAUSED BY THE USE OF PANTOPRAZOLE (PROTONIX). Lab Order: ETHYL ALCOHOL (ETHANOL); SPEC'M 07/07/16 01:39 Test: ETHYL ALCOHOL (ETHANOL); Value: < 0.003; Range: 0.000-0.010; Units: %; Status: F Radiology Order: CT ABD & PELVIS: IV Contrast Only Test: CT ABD & PELVIS: IV Contrast Only REASON FOR EXAMINATION: Abdomen Pain; ; CLINICAL HISTORY: Abdominal pain.; TECHNIQUE: Multiple axial, sagittal and coronal CT images were obtained through the abdomen and pelvi; s after administration of intravenous contrast material. Images were obtained before and after IV con; trast administration. Motion degraded study.; COMMENTS:; The liver is of uniform attenuation without mass or defect. There is no intra or extrahepatic biliary; ductal dilatation. The spleen is normal. The gallbladder is surgically absent. The pancreas is of no; rmal contour and attenuation characteristics. There is no evidence of adrenal mass.; Both kidneys demonstrate prompt and equal nephrograms. The kidneys are normal in size, shape and conf; iguration. There is no evidence of renal or ureteral mass. No renal or ureteral calculi are identifie; d. There is no hydroureter or hydronephrosis.; No evidence for appendicitis. There is wall thickening noted involving all fluid filled small bowel; segments compatible with enteritis. No evidence for small or large bowel obstruction. There is no malinda; dence of abdominal ascites or lymphadenopathy.; There is no evidence of intrinsic or extrinsic bladder mass. There is no pelvic ascites or lymphadeno; elliot. The uterus and ovaries are not identified.; Images of the lung bases show no evidence of pleural or parenchymal mass. There are no pleural effusi; ons.; The bony structures are free of lytic or blastic lesions.; IMPRESSION:; Panenteritis. Infectious and inflammatory etiologies are considered.; Thank you for your kind referral of this patient.; ; Outcome: 05:38 Discharge ordered by Provider. cs11 06:16 Discharge Assessment: Patient awake, alert and oriented x 3. No cognitive and/or jp6 functional deficits noted. Patient verbalized understanding of disposition instructions. patient administered narcotics - no. The following High Risk Discharge criteria are identified: None. Discharged to home ambulatory, with parent. Condition: improved. Discharge instructions given to patient, Instructed on discharge instructions, follow up and referral plans. medication usage, Demonstrated understanding of instructions, medications, Pt was receptive of discharge instructions/ teaching. Prescriptions given X 1. CT Study completed. Property sent home with patient. 06:43 Patient left the ED. jp6 Signatures: Dispatcher [employer] EDMS Trish Sawant, RN RN kmg1 Zi Cortez DO DO cs11 McLmurtaza, Doreen, PULLMAN CLERK PULLMAN CLERK tmm1 Barbara Kaufman, Linen Sorter Unit jlMimi García, Reg Reg hs2 Su Godwin RN RN [facility] Juanita Angelo,YASH RN 6 Berenice Echeverria Corrections: (The following items were deleted from the chart) 03:54 03:52 BP 162 / 81; Pulse 64bpm; Resp 20bpm; Pulse Ox 99%; Temp 98.2F Oral; Pain 0/10; [place] [id number] 03:54 03:53 Discharge Assessment: patient administered narcotics - no [place] [id number] 03:54 03:53 The following High Risk Discharge criteria are identified: None. Discharged to [facility] home ambulatory, [facility] 03:54 03:53 Condition: good Condition: stable Condition: improved [place] [id number] 03:54 03:53 Property :Personal belongings accompany Pt. [place] [id number] 03:54 03:53 CT Study completed. [address] 06:40 03:53 Discontinued IV bleeding controlled, pressure dressing applied, No jp6 redness/swelling at site. kas2 Chart Complete MTDD
--- NOTE | 2016-07-09 07:44 | EDDOCDS ---
Physician Documentation Name: Marilee Rivas Age: 30 yrs Sex: Female : 1985 Arrival Date: 07/06/2016 Time: 22:55 Bed 12 Private MD: NO PRIMARY PHYSICIAN, . Disposition: 07/07/16 05:38 Discharged to Home/Self Care. Impression: Noninfective gastroenteritis and colitis, unspecified. - Condition is Stable. - Discharge Instructions: Clear Liquid Diet. - Prescriptions for Reglan 10 mg Oral Tablet - take 1 tablet by ORAL route every 6 hours take 30 minutes before meals and at bedtime; 20 tablet. - Medication Reconciliation, Local Pharmacy Hours form. - Follow up: Private Physician; When: Call to arrange an appointment; Reason: Recheck today's complaints. - Problem is new. - Symptoms have improved. Historical: - Allergies: no known allergies; - Home Meds: 1. albuterol sulfate 90 mcg/actuation Inhl aepb 1 puff every 4-6 hours 2. BuSpar Oral 7.5 mg daily 3. Celexa 40 mg Oral tab 1 tab once daily 4. gabapentin 400 mg Oral cap 1 cap 3 times per day 5. Levaquin 500 mg Oral tab 1 tab once daily 6. Suboxone 8-2 mg SL film 1 film once daily - PMHx: Anxiety; Depression; Fibromyalgia; neuropathy; opiate dependency; - PSHx: Cesearean Section; Cholecystectomy; Appendectomy; Hysterectomy; - Social history: Smoking status: Patient states was never smoker of tobacco. No barriers to communication noted, The patient speaks fluent Gibraltarian. - Family history: Not pertinent. - : The pt / caregiver states he / she is not on anticoagulants. Home medication list is obtained from [employer] import data. - Exposure Risk Screening:: None identified. 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 6 in. (167.64 cm); Pain jp6 10/; 23:46 Pulse 106 MON; Pulse Ox 94% ; jp6 23:59 BP 138 / 86 (auto/); jp6 23:59 Pulse 100 MON; Pulse Ox 94% ; jp6 07/07 00:00 BP 142 / 72 (auto/); jp6 00:00 Pulse 98 MON; Pulse Ox 93% ; jp6 00:15 BP 133 / 63 (auto/); jp6 02:11 BP 141 / 67 (auto/); jp6 02:13 BP 141 / 67; Pulse 56; Resp 18; Temp 96.3(O); Pulse Ox 100% on R/A; Pain 10/10; jp6 02:13 Pulse Ox 100% ; jp6 02:17 Pulse Ox 100% ; jp6 03:19 Pulse 72 MON; Pulse Ox 100% ; jp6 03:23 Pulse 52 MON; Pulse Ox 97% ; jp6 03:26 BP 140 / 92 (auto/); jp6 03:28 Pulse 62 MON; Pulse Ox 100% ; jp6 04:38 BP 107 / 56 (auto/); jp6 04:40 Pulse 90 MON; Pulse Ox 100% ; jp6 04:41 Pulse 84 MON; Pulse Ox 100% ; jp6 05:30 Pulse 88 MON; Pulse Ox 100% ; jp6 05:47 BP 104 / 56 (auto/); jp6 05:48 Pulse 84 MON; Pulse Ox 100% ; jp6 06:02 BP 109 / 58 (auto/); jp6 06:03 Pulse 84 MON; Pulse Ox 100% ; jp6 06:16 Pulse 84 MON; Pulse Ox 100% ; jp6 06:16 Resp 18; Temp 98.7(O); Pain 0/10; jp6 06:17 BP 101 / 54 (auto/); jp6 07/06 23:45 Body Mass Index 32.28 (90.72 kg, 167.64 cm) jp6 MDM: 00:38 Ondansetron ODT Oral Disintegrating Tablet 8 mg PO once ordered. cs11 00:39 CBC with Diff Ordered. EDMS 00:39 MED Profile Ordered. EDMS 00:39 Liver Profile Ordered. EDMS 00:39 Amylase Ordered. EDMS 00:39 Lipase Ordered. EDMS 00:39 Urinalysis Ordered. EDMS 00:39 Urine Culture Ordered. EDMS 01:28 Urine Toxicology Ordered. EDMS 01:54 ETHYL ALCOHOL (ETHANOL) Ordered. EDMS 02:23 CBC with Diff Reviewed. cs11 02:25 Metoclopramide 10 mg IV at 40 mg/hr once over 15 mins ordered. cs11 02:56 MED Profile Reviewed. cs11 02:56 Liver Profile Reviewed. cs11 02:56 Lipase Reviewed. cs11 02:56 Urinalysis Reviewed. cs11 02:56 Urine Toxicology Reviewed. cs11 02:56 Amylase Reviewed. cs11 02:56 ETHYL ALCOHOL (ETHANOL) Reviewed. cs11 02:58 CT ABD & PELVIS: IV Contrast Only Ordered. EDMS 04:12 Financial registration complete. hs2 04:13 [facility] Payment Agreement was scanned into [employer] and attached to record. hs2 04:27 NS 0.9% 1000 ml IV at bolus once ordered. cs11 04:27 Haloperidol 2.5 mg IVP once ordered. cs11 04:27 diphenhydrAMINE 25 mg IVP once ordered. cs11 05:35 CT ABD & PELVIS: IV Contrast Only Reviewed. cs11 09:04 T-Sheet-- Draft Copy was scanned into [employer] and attached to record. se Administered Medications: 01:12 Drug: Ondansetron ODT 8 mg [ondansetron 4 mg disintegrating tablet (2 tabs)] Route: PO; kmg1 02:31 Drug: Metoclopramide 10 mg [metoclopramide 5 mg/mL injection solution] Route: IV; Rate: jp6 40 mg/hr; Infused Over: 15 mins; Site: right antecubital; 04:30 Drug: Haloperidol 2.5 mg [haloperidol lactate 5 mg/mL injection solution (0.5 mL)] jp6 Route: IVP; Site: right antecubital; 04:30 Drug: diphenhydrAMINE 25 mg [diphenhydramine 50 mg/mL injection solution (0.5 mL)] jp6 Route: IVP; Site: right antecubital; 04:46 Drug: NS 0.9% 1000 ml [sodium chloride 0.9 % intravenous solution] Route: IV; Rate: jp6 bolus; Site: right antecubital; Signatures: Dispatcher [employer] EDMS Zi Cortez DO DO cs11 Mimi Cooper, Reg Reg hs2 Su Godwin RN RN [facility]2 Juanita Angelo RN RN charu6 Berenice Echeverria Kelly RN km The chart was reviewed and I authenticate all verbal orders and agree with the evaluation and treatment provided.Corrections: (The following items were deleted from the chart) 01:54 01:28 ETHYL ALCOHOL (ETHANOL)+LAB ordered. EDMS EDMS Attachments: 04:13 [facility] Payment Agreement hs2 09:04 T-Sheet-- Draft Copy [facility] Chart Complete MTDD
--- NOTE | 2016-07-09 07:44 | EDDOCDS ---
Physician Documentation [facility] Name: Marilee Rivas Age: 30 yrs Sex: Female : 1985 Arrival Date: 07/06/2016 Time: 22:55 Bed 12 Private MD: NO PRIMARY PHYSICIAN, . Disposition: 07/07/16 05:38 Discharged to Home/Self Care. Impression: Noninfective gastroenteritis and colitis, unspecified. - Condition is Stable. - Discharge Instructions: Clear Liquid Diet. - Prescriptions for Reglan 10 mg Oral Tablet - take 1 tablet by ORAL route every 6 hours take 30 minutes before meals and at bedtime; 20 tablet. - Medication Reconciliation, Local Pharmacy Hours form. - Follow up: Private Physician; When: Call to arrange an appointment; Reason: Recheck today's complaints. - Problem is new. - Symptoms have improved. Historical: - Allergies: no known allergies; - Home Meds: 1. albuterol sulfate 90 mcg/actuation Inhl aepb 1 puff every 4-6 hours 2. BuSpar Oral 7.5 mg daily 3. Celexa 40 mg Oral tab 1 tab once daily 4. gabapentin 400 mg Oral cap 1 cap 3 times per day 5. Levaquin 500 mg Oral tab 1 tab once daily 6. Suboxone 8-2 mg SL film 1 film once daily - PMHx: Anxiety; Depression; Fibromyalgia; neuropathy; opiate dependency; - PSHx: Cesearean Section; Cholecystectomy; Appendectomy; Hysterectomy; - Social history: Smoking status: Patient states was never smoker of tobacco. No barriers to communication noted, The patient speaks fluent Nauruan. - Family history: Not pertinent. - : The pt / caregiver states he / she is not on anticoagulants. Home medication list is obtained from [employer] import data. - Exposure Risk Screening:: None identified. 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 6 in. (167.64 cm); Pain jp6 10/; 23:46 Pulse 106 MON; Pulse Ox 94% ; jp6 23:59 BP 138 / 86 (auto/); jp6 23:59 Pulse 100 MON; Pulse Ox 94% ; jp6 07/07 00:00 BP 142 / 72 (auto/); jp6 00:00 Pulse 98 MON; Pulse Ox 93% ; jp6 00:15 BP 133 / 63 (auto/); jp6 02:11 BP 141 / 67 (auto/); jp6 02:13 BP 141 / 67; Pulse 56; Resp 18; Temp 96.3(O); Pulse Ox 100% on R/A; Pain 10/10; jp6 02:13 Pulse Ox 100% ; jp6 02:17 Pulse Ox 100% ; jp6 03:19 Pulse 72 MON; Pulse Ox 100% ; jp6 03:23 Pulse 52 MON; Pulse Ox 97% ; jp6 03:26 BP 140 / 92 (auto/); jp6 03:28 Pulse 62 MON; Pulse Ox 100% ; jp6 04:38 BP 107 / 56 (auto/); jp6 04:40 Pulse 90 MON; Pulse Ox 100% ; jp6 04:41 Pulse 84 MON; Pulse Ox 100% ; jp6 05:30 Pulse 88 MON; Pulse Ox 100% ; jp6 05:47 BP 104 / 56 (auto/); jp6 05:48 Pulse 84 MON; Pulse Ox 100% ; jp6 06:02 BP 109 / 58 (auto/); jp6 06:03 Pulse 84 MON; Pulse Ox 100% ; jp6 06:16 Pulse 84 MON; Pulse Ox 100% ; jp6 06:16 Resp 18; Temp 98.7(O); Pain 0/10; jp6 06:17 BP 101 / 54 (auto/); jp6 07/06 23:45 Body Mass Index 32.28 (90.72 kg, 167.64 cm) jp6 MDM: 00:38 Ondansetron ODT Oral Disintegrating Tablet 8 mg PO once ordered. cs11 00:39 CBC with Diff Ordered. EDMS 00:39 MED Profile Ordered. EDMS 00:39 Liver Profile Ordered. EDMS 00:39 Amylase Ordered. EDMS 00:39 Lipase Ordered. EDMS 00:39 Urinalysis Ordered. EDMS 00:39 Urine Culture Ordered. EDMS 01:28 Urine Toxicology Ordered. EDMS 01:54 ETHYL ALCOHOL (ETHANOL) Ordered. EDMS 02:23 CBC with Diff Reviewed. cs11 02:25 Metoclopramide 10 mg IV at 40 mg/hr once over 15 mins ordered. cs11 02:56 MED Profile Reviewed. cs11 02:56 Liver Profile Reviewed. cs11 02:56 Lipase Reviewed. cs11 02:56 Urinalysis Reviewed. cs11 02:56 Urine Toxicology Reviewed. cs11 02:56 Amylase Reviewed. cs11 02:56 ETHYL ALCOHOL (ETHANOL) Reviewed. cs11 02:58 CT ABD & PELVIS: IV Contrast Only Ordered. EDMS 04:12 Financial registration complete. hs2 04:13 [facility] Payment Agreement was scanned into [employer] and attached to record. hs2 04:27 NS 0.9% 1000 ml IV at bolus once ordered. cs11 04:27 Haloperidol 2.5 mg IVP once ordered. cs11 04:27 diphenhydrAMINE 25 mg IVP once ordered. cs11 05:35 CT ABD & PELVIS: IV Contrast Only Reviewed. cs11 09:04 T-Sheet-- Draft Copy was scanned into [employer] and attached to record. se Administered Medications: 01:12 Drug: Ondansetron ODT 8 mg [ondansetron 4 mg disintegrating tablet (2 tabs)] Route: PO; kmg1 02:31 Drug: Metoclopramide 10 mg [metoclopramide 5 mg/mL injection solution] Route: IV; Rate: jp6 40 mg/hr; Infused Over: 15 mins; Site: right antecubital; 04:30 Drug: Haloperidol 2.5 mg [haloperidol lactate 5 mg/mL injection solution (0.5 mL)] jp6 Route: IVP; Site: right antecubital; 04:30 Drug: diphenhydrAMINE 25 mg [diphenhydramine 50 mg/mL injection solution (0.5 mL)] jp6 Route: IVP; Site: right antecubital; 04:46 Drug: NS 0.9% 1000 ml [sodium chloride 0.9 % intravenous solution] Route: IV; Rate: jp6 bolus; Site: right antecubital; Signatures: Dispatcher [employer] EDMS Zi Cortez DO DO cs11 Mimi Cooper, Reg Reg hs2 Su Godwin RN RN [facility]2 Juanita Angelo RN RN charu6 Berenice Echeverria Kelly RN km The chart was reviewed and I authenticate all verbal orders and agree with the evaluation and treatment provided.Corrections: (The following items were deleted from the chart) 01:54 01:28 ETHYL ALCOHOL (ETHANOL)+LAB ordered. EDMS EDMS Attachments: 04:13 [facility] Payment Agreement hs2 09:04 T-Sheet-- Draft Copy [facility] Chart Complete MTDD
== END 2016-07-07 06:43 | disposition home or self-care (01) ==
LOC: M ED 22:55
DX: K52.9 Noninfective gastroenteritis and colitis, unspecified (principal); F41.9 Anxiety disorder, unspecified; F32.9 Major depressive disorder, single episode, unspecified; F11.20 Opioid dependence, uncomplicated; M79.7 Fibromyalgia; G62.9 Polyneuropathy, unspecified; Z79.899 Other long term (current) drug therapy; Z79.2 Long term (current) use of antibiotics
CPT/HCPCS: 36415; 51701; 74177; 80048; 80076; 80306; 81001; 82150; 83690; 85025; 87086; 96374; 96375; 99285; G0480; J1200; J1630; J2765; Q9967

== ENCOUNTER → 2016-07-11 | Outpatient (REF) | payer OTHER ==
[2016-07-11 19:39] LABS: BASO % 0.4 % (0.0-1.0); EOS # 0.3 K/mm3 (0.0-0.50); EOS % 4.9 % (0.0-3.0); LARGE UNSTAINED CELL # 0.2 K/mm3 (0.0-0.4); LARGE UNSTAINED CELL % 2.3 % (0.0-4.0); LYMPH # 2.5 K/mm3 (1.5-4.5); LYMPH % 37.2 % (24.0-44.0); MEAN CORPUSCULAR HEMOGLOBIN 28.3 pg (27.0-33.0); MEAN CORPUSCULAR HGB CONC 33.9 g/dl (32.0-36.5); MEAN CORPUSCULAR VOLUME 83.7 fl (80.0-96.0); MONO # 0.4 K/mm3 (0.0-0.8); MONO % 5.4 % (0.0-5.0); NEUTROPHILS # 3.4 K/mm3 (1.8-7.7); NEUTROPHILS % 49.8 % (36.0-66.0); PLATELET COUNT, AUTOMATED 310 k/mm3 (150-450); RED CELL DISTRIBUTION WIDTH 12.5 % (11.5-14.5); WHITE BLOOD COUNT 6.8 K/mm3 (4.0-10.0)
== END ==
LOC: M LAB REF 18:59
PROVIDERS: ATTEND Physician Assistant
DX: R50.9 Fever, unspecified (principal)

== ENCOUNTER → 2016-07-19 | Outpatient (CLI) | payer OTHER ==
--- NOTE | 2016-07-22 08:31 | ECHO ---
DATE OF PROCEDURE: 07/19/2016 DATE OF : 1985 AGE: 30 REFERRING PROVIDER: RENETTA King. PATIENT LOCATION: Outpatient. REASON FOR ECHOCARDIOGRAM: Abnormal EKG, bradycardia, unspecified. 2D MEASUREMENTS: IVS: 1.0 cm LV: 4.9 cm LVPW: 1.1 cm LA: 4.1 cm Aorta: 2.5 cm IVC: 1.7 cm DOPPLER MEASUREMENTS: Peak velocity across the aortic valve: 1.7 m/s Peak velocity across the LVOT: 1.1 m/s Mitral E: 0.69 Mitral A: 0.49 Ratio 1.4 Maximum tricuspid valve velocity: 2.1 m/s 2D COMMENTS: 1. Normal left ventricular size, wall thickness and normal global left ventricular systolic function. The estimated global left ventricular systolic ejection fraction is 60% to 65%. 2. Mildly enlarged left atrium within limited views. Normal right atrium and right ventricle. 3. The atrial septum appeared to be normal without evidence of defect or shunt. 4. Normal aortic root. 5. No pericardial effusion seen. 6. The aortic valve, mitral valve, tricuspid valve, and pulmonic valve appear to be normal. The proximal pulmonary artery branches appear to be normal in size. 7. The inferior vena cava was normal in size. DOPPLER: It detects trace mitral regurgitation, mild tricuspid regurgitation, and mild pulmonic regurgitation. The calculated pulmonary artery systolic pressure was normal. Assessment of the left ventricular diastolic function also appeared to be normal. IMPRESSION: 1. Normal global left ventricular systolic and diastolic function. 2. Isolated mildly dilated left atrium noted in limited views. Trace mitral regurgitation also detected. 3. Mild tricuspid regurgitation with mild pulmonary hypertension. 4. Mild pulmonic regurgitation.
== END ==
LOC: M CARPUL 08:22
PROVIDERS: ATTEND Physician Assistant
DX: R00.1 Bradycardia, unspecified (principal)

== ENCOUNTER → 2016-07-25 | Outpatient (REF) | payer OTHER ==
[2016-07-25 19:22] LABS: BASO % 0.3 % (0.0-1.0); EOS # 0.3 K/mm3 (0.0-0.50); EOS % 5.1 % (0.0-3.0); LARGE UNSTAINED CELL # 0.1 K/mm3 (0.0-0.4); LARGE UNSTAINED CELL % 2.3 % (0.0-4.0); LYMPH # 2.1 K/mm3 (1.5-4.5); LYMPH % 37.2 % (24.0-44.0); MEAN CORPUSCULAR HEMOGLOBIN 28.6 pg (27.0-33.0); MEAN CORPUSCULAR HGB CONC 33.7 g/dl (32.0-36.5); MEAN CORPUSCULAR VOLUME 84.8 fl (80.0-96.0); MONO # 0.4 K/mm3 (0.0-0.8); MONO % 6.5 % (0.0-5.0); NEUTROPHILS # 2.7 K/mm3 (1.8-7.7); NEUTROPHILS % 48.6 % (36.0-66.0); PLATELET COUNT, AUTOMATED 285 k/mm3 (150-450); RED CELL DISTRIBUTION WIDTH 12.8 % (11.5-14.5); WHITE BLOOD COUNT 5.5 K/mm3 (4.0-10.0)
[2016-07-25 19:40] LABS: ALBUMIN/GLOBULIN RATIO 1.43 (1.00-1.93); ALKALINE PHOSPHATASE 74 U/L (45-117); ALT/SGPT 66 U/L (12-78); ANION GAP 7 MEQ/L (8-16); AST/SGOT 35 U/L (15-37); BILIRUBIN,TOTAL 0.5 MG/DL (0.2-1.0); BLOOD UREA NITROGEN 18 MG/DL (7-18); CALCIUM LEVEL 8.5 MG/DL (8.5-10.1); CARBON DIOXIDE LEVEL 32 MEQ/L (21-32); CHLORIDE LEVEL 103 MEQ/L (98-107); CREATININE FOR GFR 0.66 MG/DL (0.55-1.02); FREE T4 0.87 NG/DL (0.76-1.46); GLOMERULAR FILTRATION RATE > 60.0 (>60); GLUCOSE, FASTING 90 MG/DL (70-105); SODIUM LEVEL 142 MEQ/L (136-145); TOTAL PROTEIN 6.8 GM/DL (6.4-8.2)
[2016-07-28 08:06] LABS: Lyme Disease IgG Ab 18 kDa Ban Absent (.); Lyme Disease IgG Ab 23 kDa Ban Absent (.); Lyme Disease IgG Ab 28 kDa Ban Absent (.); Lyme Disease IgG Ab 30 kDa Ban Absent (.); Lyme Disease IgG Ab 39 kDa Ban Absent (.); Lyme Disease IgG Ab 41 kDa Ban Absent (.); Lyme Disease IgG Ab 45 kDa Ban Absent (.); Lyme Disease IgG Ab 58 kDa Ban Absent (.); Lyme Disease IgG Ab 66 kDa Ban Absent (.); Lyme Disease IgG Ab 93 kDa Ban Absent (.); Lyme Disease IgG West Blot Int Negative (.); Lyme Disease IgG/IgM Antibodie <0.91 ISR (0.00-0.90); Lyme Disease IgM Ab 23 kDa Ban Present (.); Lyme Disease IgM Ab 39 kDa Ban Absent (.); Lyme Disease IgM Ab 41 kDa Ban Absent (.); Lyme Disease IgM Ab Quantitati 1.66 index (0.00-0.79); Lyme Disease IgM West Blot Int Negative (.)
== END ==
LOC: M LABDRWAD 08:34
PROVIDERS: ATTEND Physician Assistant
DX: R53.83 Other fatigue (principal)

== ENCOUNTER → 2016-08-08 | Outpatient (CLI) | payer OTHER | LOC: M OUTALCOH 14:15 | PROVIDERS: ATTEND Psychiatry & Neurology Psychiatry | DX: F12.20 Cannabis dependence, uncomplicated (principal); F11.20 Opioid dependence, uncomplicated ==

== ENCOUNTER 2016-09-18 08:45 | Outpatient (RCR) | payer OTHER | END 2016-09-20 | LOC: M OUTALCOH 08:45 | PROVIDERS: ATTEND Psychiatry & Neurology Psychiatry | DX: F12.20 Cannabis dependence, uncomplicated (principal); F11.20 Opioid dependence, uncomplicated ==

== ENCOUNTER → 2016-09-18 | Outpatient (REF) | payer OTHER | LOC: M LAB REF 10:17 | PROVIDERS: ATTEND Physician Assistant | DX: R30.0 Dysuria (principal) ==

== ENCOUNTER → 2016-09-25 | Outpatient (CLI) | payer OTHER ==
[2016-09-25 16:52] LABS: BASO % 0.3 % (0.0-1.0); EOS # 0.4 K/mm3 (0.0-0.50); EOS % 6.9 % (0.0-3.0); LARGE UNSTAINED CELL # 0.1 K/mm3 (0.0-0.4); LARGE UNSTAINED CELL % 1.3 % (0.0-4.0); LYMPH # 2.1 K/mm3 (1.5-4.5); LYMPH % 31.6 % (24.0-44.0); MEAN CORPUSCULAR HEMOGLOBIN 28.9 pg (27.0-33.0); MEAN CORPUSCULAR HGB CONC 34.6 g/dl (32.0-36.5); MEAN CORPUSCULAR VOLUME 83.6 fl (80.0-96.0); MONO # 0.3 K/mm3 (0.0-0.8); NEUTROPHILS # 3.6 K/mm3 (1.8-7.7); NEUTROPHILS % 54.9 % (36.0-66.0); PLATELET COUNT, AUTOMATED 275 k/mm3 (150-450); RED CELL DISTRIBUTION WIDTH 12.4 % (11.5-14.5); WHITE BLOOD COUNT 6.5 K/mm3 (4.0-10.0)
[2016-09-25 17:51] LABS: ALBUMIN 4.1 GM/DL (3.2-5.2); ALBUMIN/GLOBULIN RATIO 1.21 (1.00-1.93); ALKALINE PHOSPHATASE 83 U/L (45-117); ALT/SGPT 120 U/L (12-78); ANION GAP 3 MEQ/L (8-16); AST/SGOT 71 U/L (15-37); BILIRUBIN,TOTAL 0.3 MG/DL (0.2-1.0); BLOOD UREA NITROGEN 14 MG/DL (7-18); CALCIUM LEVEL 9.1 MG/DL (8.5-10.1); CARBON DIOXIDE LEVEL 33 MEQ/L (21-32); CHLORIDE LEVEL 102 MEQ/L (98-107); CREATININE FOR GFR 0.61 MG/DL (0.55-1.02); GLOMERULAR FILTRATION RATE > 60.0 (>60); GLUCOSE, FASTING 97 MG/DL (70-105); POTASSIUM SERUM 4.3 MEQ/L (3.5-5.1); SODIUM LEVEL 138 MEQ/L (136-145); TOTAL PROTEIN 7.5 GM/DL (6.4-8.2)
== END ==
LOC: M WUC 15:26
PROVIDERS: ATTEND Physician Assistant
DX: R10.84 Generalized abdominal pain (principal)

== ENCOUNTER → 2016-10-07 | Outpatient (REF) | payer OTHER ==
[2016-10-07 21:12] LABS: BASO % 0.6 % (0.0-1.0); EOS # 0.4 K/mm3 (0.0-0.50); EOS % 6.3 % (0.0-3.0); LARGE UNSTAINED CELL # 0.1 K/mm3 (0.0-0.4); LARGE UNSTAINED CELL % 2.1 % (0.0-4.0); LYMPH # 2.6 K/mm3 (1.5-4.5); LYMPH % 42.6 % (24.0-44.0); MEAN CORPUSCULAR HEMOGLOBIN 29.4 pg (27.0-33.0); MEAN CORPUSCULAR HGB CONC 34.8 g/dl (32.0-36.5); MEAN CORPUSCULAR VOLUME 84.5 fl (80.0-96.0); MONO # 0.4 K/mm3 (0.0-0.8); MONO % 6.7 % (0.0-5.0); NEUTROPHILS # 2.6 K/mm3 (1.8-7.7); NEUTROPHILS % 41.7 % (36.0-66.0); PLATELET COUNT, AUTOMATED 268 k/mm3 (150-450); RED CELL DISTRIBUTION WIDTH 12.7 % (11.5-14.5); WHITE BLOOD COUNT 6.2 K/mm3 (4.0-10.0)
[2016-10-07 21:22] LABS: ALBUMIN 3.9 GM/DL (3.2-5.2); ALBUMIN/GLOBULIN RATIO 1.18 (1.00-1.93); ALKALINE PHOSPHATASE 81 U/L (45-117); ALT/SGPT 45 U/L (12-78); ANION GAP 6 MEQ/L (8-16); AST/SGOT 17 U/L (15-37); BILIRUBIN,TOTAL 0.4 MG/DL (0.2-1.0); BLOOD UREA NITROGEN 19 MG/DL (7-18); CALCIUM LEVEL 8.5 MG/DL (8.5-10.1); CARBON DIOXIDE LEVEL 30 MEQ/L (21-32); CHLORIDE LEVEL 104 MEQ/L (98-107); CREATININE FOR GFR 0.71 MG/DL (0.55-1.02); GLOMERULAR FILTRATION RATE > 60.0 (>60); GLUCOSE, FASTING 68 MG/DL (70-105); POTASSIUM SERUM 4.3 MEQ/L (3.5-5.1); SODIUM LEVEL 140 MEQ/L (136-145); TOTAL PROTEIN 7.2 GM/DL (6.4-8.2)
== END ==
LOC: M LAB REF 19:25 → M LABWUC 19:25
PROVIDERS: ATTEND Physician Assistant
DX: R10.814 Left lower quadrant abdominal tenderness (principal); B65.9 Schistosomiasis, unspecified

== ENCOUNTER 2016-10-16 08:45 | Outpatient (RCR) | payer OTHER | END 2016-10-20 | LOC: M OUTALCOH 08:45 | PROVIDERS: ATTEND Psychiatry & Neurology Psychiatry | DX: F12.20 Cannabis dependence, uncomplicated (principal); F11.20 Opioid dependence, uncomplicated ==

== ENCOUNTER → 2016-10-17 | Outpatient (CLI) | payer OTHER ==
[~2016-10-17] MED LIST changes: +ISOVUE-370 76% 100ML VIAL (Q9967) As Ordered ONE
--- NOTE | 2016-10-18 03:35 | REP ---
Clinical: Left lower quadrant pain. Technique: Axial contrast enhanced images from the lung bases to the pubic symphysis using 100 ml Isovue 370 intravenous contrast material with coronal and sagittal re-formations. Comparison: 07/07/2016. Findings: Lung bases are clear. Visualized heart and pericardium are normal. Liver, spleen, pancreas, bilateral adrenal glands and kidneys are normal. The patient is status post cholecystectomy and hysterectomy. The enteric system is without obstruction or acute inflammatory process normal terminal ileum in the right lower quadrant noted and and findings to suggest prior appendectomy. Colonic diverticula noted without acute diverticulitis. Pelvis demonstrates collapsed normal appearing bladder. No pelvic fluid or adnexal mass lesion. There is a small ventral / left paraumbilical fat-containing hernia measuring 2 cm diameter. No ascites. No intraperitoneal or retroperitoneal adenopathy. Vasculature is normal. Musculoskeletal structures are intact. Impression: 1. 2 cm left periumbilical fat containing hernia. 2. Colonic diverticula without acute diverticulitis. 3. Evidence for prior cholecystectomy, hysterectomy, and appendectomy. 4. No acute intra-abdominal or pelvic pathology appreciated. Signed by Shaq Burton MD 10/18/2016 03:27 A
== END ==
LOC: M RAD 13:04
PROVIDERS: ATTEND Physician Assistant
DX: R10.32 Left lower quadrant pain (principal)

== ENCOUNTER 2016-11-04 01:35 | Emergency (ER) | payer OTHER ==
[~2016-11-04] VITALS: Ht 170.2 cm; Wt 95.3 kg
[~2016-11-04 01:35] MED LIST changes: -ISOVUE-370 76% 100ML VIAL (Q9967) As Ordered ONE
[2016-11-04 01:45] VITALS: BP 148/92
[2016-11-04] MEDS ORDERED: GABA-283 PO (01:51)
[2016-11-04] MEDS ORDERED: ADACEL/BOOSTRIX VACCINE (DIPHTH/PERTUSS/ACELL/TETANUS)0.5ML SYR (90715) IM ONE (07:45)
== END 2016-11-04 07:54 | disposition home or self-care (01) ==
LOC: M ED 02:36
DX: S61.212A Laceration without foreign body of right middle finger without damage to nail, initial encounter (principal); W26.8XXA Contact with other sharp object(s), not elsewhere classified, initial encounter; Y92.018 Other place in single-family (private) house as the place of occurrence of the external cause; Y93.89 Activity, other specified; Y99.8 Other external cause status; I10 Essential (primary) hypertension; J45.909 Unspecified asthma, uncomplicated; K58.9 Irritable bowel syndrome, unspecified; D68.59 Other primary thrombophilia; Z79.899 Other long term (current) drug therapy

== ENCOUNTER 2016-11-14 14:00 | Outpatient (RCR) | payer OTHER ==
[~2016-11-14 14:00] MED LIST changes: +GABA-283 PO
== END 2016-11-20 ==
LOC: M OUTALCOH 14:00
PROVIDERS: ATTEND Psychiatry & Neurology Psychiatry
DX: F12.20 Cannabis dependence, uncomplicated (principal); F11.20 Opioid dependence, uncomplicated

== ENCOUNTER → 2016-11-28 | Outpatient (REF) | payer OTHER ==
[~2016-11-28] MED LIST changes: +BUSP15TA47 PO; +LYRI100C10 PO; +REME15TA PO; +RISP4TAB33 PO; +SUBO12MI SL
[2016-11-28 19:20] LABS: BASO % 0.5 % (0.0-1.0); EOS # 0.4 K/mm3 (0.0-0.50); EOS % 5.5 % (0.0-3.0); LARGE UNSTAINED CELL # 0.1 K/mm3 (0.0-0.4); LARGE UNSTAINED CELL % 1.5 % (0.0-4.0); LYMPH % 38.6 % (24.0-44.0); MEAN CORPUSCULAR HEMOGLOBIN 29.2 pg (27.0-33.0); MEAN CORPUSCULAR HGB CONC 34.3 g/dl (32.0-36.5); MONO # 0.4 K/mm3 (0.0-0.8); MONO % 5.9 % (0.0-5.0); NEUTROPHILS # 3.6 K/mm3 (1.8-7.7); NEUTROPHILS % 47.9 % (36.0-66.0); PLATELET COUNT, AUTOMATED 290 k/mm3 (150-450); RED CELL DISTRIBUTION WIDTH 13.2 % (11.5-14.5); WHITE BLOOD COUNT 7.5 K/mm3 (4.0-10.0)
[2016-11-28 19:40] LABS: ALBUMIN 4.1 GM/DL (3.2-5.2); ALBUMIN/GLOBULIN RATIO 1.21 (1.00-1.93); ALKALINE PHOSPHATASE 77 U/L (45-117); ALT/SGPT 88 U/L (12-78); ANION GAP 7 MEQ/L (8-16); AST/SGOT 58 U/L (15-37); BILIRUBIN,TOTAL 0.5 MG/DL (0.2-1.0); BLOOD UREA NITROGEN 12 MG/DL (7-18); CALCIUM LEVEL 9.4 MG/DL (8.5-10.1); CARBON DIOXIDE LEVEL 28 MEQ/L (21-32); CHLORIDE LEVEL 104 MEQ/L (98-107); CREATININE FOR GFR 0.74 MG/DL (0.55-1.02); GLOMERULAR FILTRATION RATE > 60.0 (>60); GLUCOSE, FASTING 97 MG/DL (70-105); POTASSIUM SERUM 4.3 MEQ/L (3.5-5.1); SODIUM LEVEL 139 MEQ/L (136-145); TOTAL PROTEIN 7.5 GM/DL (6.4-8.2)
[2016-11-28 23:13] LABS: ERYTHROCYTE SEDIMENTATION RATE 14 mm/hr (0-20)
== END ==
LOC: M SFHCPLAZ 15:18
PROVIDERS: ATTEND Physician Assistant Medical
DX: M79.604 Pain in right leg (principal); R79.89 Other specified abnormal findings of blood chemistry

== ENCOUNTER 2016-12-03 15:57 | Emergency (ER) | payer OTHER ==
[~2016-12-03] VITALS: Ht 170.2 cm; Wt 110.6 kg
[~2016-12-03 15:57] MED LIST changes: -BUSP15TA47 PO; -LYRI100C10 PO; -REME15TA PO; -RISP4TAB33 PO; -SUBO12MI SL
[2016-12-03] MEDS ORDERED: SUBO12MI SL (16:06)
[2016-12-03] MEDS ORDERED: BUSP15TA47 PO (16:06)
[2016-12-03] MEDS ORDERED: RISP4TAB33 PO (16:06)
[2016-12-03] MEDS ORDERED: LYRI100C10 PO (16:06)
[2016-12-03] MEDS ORDERED: REME15TA PO (16:06)
[2016-12-03] MEDS ORDERED: TRIMETHOBENZAMIDE HCL INJ 200 MG/2 ML VIAL (J3250) IM ONE (16:45)
[2016-12-03] MEDS ORDERED: KETOROLAC 30 MG/ML VIAL (J1885) IV ONE (16:45)
[2016-12-03] MEDS ORDERED: GASTROGRAFIN SOLUTION 30ML PO ONE (17:00)
[2016-12-03 17:23] LABS: BASO # 0.1 K/mm3 (0.0-0.2); EOS # 0.5 K/mm3 (0.0-0.50); EOS % 4.4 % (0.0-3.0); LARGE UNSTAINED CELL # 0.2 K/mm3 (0.0-0.4); LARGE UNSTAINED CELL % 1.5 % (0.0-4.0); LYMPH # 3.7 K/mm3 (1.5-4.5); LYMPH % 32.4 % (24.0-44.0); MEAN CORPUSCULAR HEMOGLOBIN 29.7 pg (27.0-33.0); MEAN CORPUSCULAR HGB CONC 34.8 g/dl (32.0-36.5); MEAN CORPUSCULAR VOLUME 85.5 fl (80.0-96.0); MONO # 0.7 K/mm3 (0.0-0.8); MONO % 5.8 % (0.0-5.0); NEUTROPHILS # 6.3 K/mm3 (1.8-7.7); NEUTROPHILS % 54.9 % (36.0-66.0); PLATELET COUNT, AUTOMATED 284 k/mm3 (150-450); RED CELL DISTRIBUTION WIDTH 13.1 % (11.5-14.5); WHITE BLOOD COUNT 11.4 K/mm3 (4.0-10.0)
[2016-12-03] MEDS ORDERED: GASTROGRAFIN SOLUTION 30ML (Q9963) PO ONE (17:30)
[2016-12-03 17:38] LABS: ALBUMIN/GLOBULIN RATIO 1.18 (1.00-1.93); ALKALINE PHOSPHATASE 77 U/L (45-117); ALT/SGPT 111 U/L (12-78); AMYLASE 56 U/L (25-115); ANION GAP 5 MEQ/L (8-16); AST/SGOT 59 U/L (15-37); BILIRUBIN,DIRECT < 0.1 MG/DL (0.0-0.2); BILIRUBIN,TOTAL 0.4 MG/DL (0.2-1.0); BLOOD UREA NITROGEN 12 MG/DL (7-18); CALCIUM LEVEL 9.1 MG/DL (8.5-10.1); CARBON DIOXIDE LEVEL 32 MEQ/L (21-32); CHLORIDE LEVEL 101 MEQ/L (98-107); CREATININE FOR GFR 0.79 MG/DL (0.55-1.02); GLOMERULAR FILTRATION RATE > 60.0 (>60); GLUCOSE, FASTING 113 MG/DL (70-105); POTASSIUM SERUM 3.8 MEQ/L (3.5-5.1); SODIUM LEVEL 138 MEQ/L (136-145); TOTAL PROTEIN 7.4 GM/DL (6.4-8.2)
[2016-12-03] MEDS ORDERED: ISOVUE-370 76% 100ML VIAL (Q9967) As Ordered ONE (18:36)
[2016-12-03] MEDS ORDERED: DICYCLOMINE INJ 20MG/2ML (J0500) IM ONE (19:15)
--- NOTE | 2016-12-03 19:20 | REPUSA ---
CT of the abdomen and pelvis with contrast Clinical statement: Pain. Technique: Multiple axial CT images were obtained from the base of the lungs through the floor of the pelvis utilizing 5 mm axial slices after administration of oral and nonionic intravenous contrast. C oronal and sagittal reconstructions were also obtained. Comparison: 07/07/2016. Findings: Chest: The visualized lung bases are clear. Abdomen: The spleen, pancreas, kidneys, and adrenal glands are unremarkable. The liver is enlarged, m easuring 25 cm in diameter. Diffuse low attenuation throughout the hepatic parenchyma is noted. The a joya is within normal limits. There is no evidence of abdominal lymphadenopathy or ascites. There is a small left periumbilical hernia containing only omental fat. Pelvis: Moderate amount of stool fills the colon. The bowel is otherwise unremarkable, with no obstru ctive or inflammatory changes. The urinary bladder is within normal limits. The other pelvic structur es appear grossly intact. There is no evidence of pelvic lymphadenopathy or ascites. Bones: There are no suspicious osseous abnormalities seen. Impression: 1. No obstructive or inflammatory bowel changes. Moderate constipation. 2. No evidence of hydronephrosis or nephrolithiasis. 3. Hepatomegaly with diffuse fatty infiltration of the liver. 4. Small left periumbilical hernia.
[2016-12-03 19:34] VITALS: BP 136/72
== END 2016-12-03 19:52 | disposition home or self-care (01) ==
LOC: M ED 16:27
DX: K58.1 Irritable bowel syndrome with constipation (principal); K76.0 Fatty (change of) liver, not elsewhere classified; R16.0 Hepatomegaly, not elsewhere classified; K42.9 Umbilical hernia without obstruction or gangrene; R10.9 Unspecified abdominal pain; E66.9 Obesity, unspecified; F41.9 Anxiety disorder, unspecified; F32.9 Major depressive disorder, single episode, unspecified; D68.51 Activated protein C resistance; Z90.49 Acquired absence of other specified parts of digestive tract; Z90.79 Acquired absence of other genital organ(s); Z90.89 Acquired absence of other organs; Z79.891 Long term (current) use of opiate analgesic; Z79.899 Other long term (current) drug therapy

== ENCOUNTER → 2016-12-12 | Outpatient (REF) | payer OTHER ==
[~2016-12-12] MED LIST changes: +BUSP15TA47 PO; +GABA600T PO; +KETO10TAB PO; +LASI20TA PO; +LYRI100C10 PO; +REME15TA PO; +RISP4TAB33 PO; +SUBO12MI SL; +SUBO8MIS SL
[2016-12-12 18:32] LABS: BASO % 0.3 % (0.0-1.0); EOS # 0.4 K/mm3 (0.0-0.50); EOS % 6.7 % (0.0-3.0); LARGE UNSTAINED CELL # 0.1 K/mm3 (0.0-0.4); LARGE UNSTAINED CELL % 1.8 % (0.0-4.0); LYMPH # 2.4 K/mm3 (1.5-4.5); MEAN CORPUSCULAR HEMOGLOBIN 29.6 pg (27.0-33.0); MEAN CORPUSCULAR HGB CONC 34.1 g/dl (32.0-36.5); MEAN CORPUSCULAR VOLUME 86.7 fl (80.0-96.0); MONO # 0.5 K/mm3 (0.0-0.8); NEUTROPHILS # 2.5 K/mm3 (1.8-7.7); NEUTROPHILS % 43.2 % (36.0-66.0); PLATELET COUNT, AUTOMATED 267 k/mm3 (150-450); RED CELL DISTRIBUTION WIDTH 14.2 % (11.5-14.5); WHITE BLOOD COUNT 5.7 K/mm3 (4.0-10.0)
[2016-12-12 19:01] LABS: ANION GAP 6 MEQ/L (8-16); BLOOD UREA NITROGEN 8 MG/DL (7-18); CALCIUM LEVEL 8.8 MG/DL (8.5-10.1); CARBON DIOXIDE LEVEL 28 MEQ/L (21-32); CHLORIDE LEVEL 106 MEQ/L (98-107); CREATININE FOR GFR 0.63 MG/DL (0.55-1.02); GLOMERULAR FILTRATION RATE > 60.0 (>60); GLUCOSE, FASTING 185 MG/DL (70-105); POTASSIUM SERUM 4.5 MEQ/L (3.5-5.1); SODIUM LEVEL 140 MEQ/L (136-145)
[2016-12-12 19:03] LABS: ERYTHROCYTE SEDIMENTATION RATE 28 mm/hr (0-20)
== END ==
LOC: M SFHCPLAZ 15:18
PROVIDERS: ATTEND Physician Assistant Medical
DX: M79.7 Fibromyalgia (principal)

== ENCOUNTER → 2016-12-16 | Outpatient (REF) | payer OTHER ==
[2016-12-16 18:51] LABS: BASO % 0.4 % (0.0-1.0); EOS # 0.4 K/mm3 (0.0-0.50); LARGE UNSTAINED CELL # 0.1 K/mm3 (0.0-0.4); LARGE UNSTAINED CELL % 1.5 % (0.0-4.0); LYMPH # 2.1 K/mm3 (1.5-4.5); LYMPH % 34.3 % (24.0-44.0); MEAN CORPUSCULAR HEMOGLOBIN 29.6 pg (27.0-33.0); MEAN CORPUSCULAR HGB CONC 33.6 g/dl (32.0-36.5); MEAN CORPUSCULAR VOLUME 88.1 fl (80.0-96.0); MONO # 0.4 K/mm3 (0.0-0.8); NEUTROPHILS # 3.1 K/mm3 (1.8-7.7); NEUTROPHILS % 51.9 % (36.0-66.0); PLATELET COUNT, AUTOMATED 277 k/mm3 (150-450); RED CELL DISTRIBUTION WIDTH 14.1 % (11.5-14.5); WHITE BLOOD COUNT 5.9 K/mm3 (4.0-10.0)
[2016-12-16 20:13] LABS: ERYTHROCYTE SEDIMENTATION RATE 21 mm/hr (0-20)
[2016-12-19 14:17] LABS: HEPATITIS C QUANTITATION HCV Not Detected IU/mL (.)
== END ==
LOC: M SFHCPLAZ 16:04
PROVIDERS: ATTEND Physician Assistant Medical
DX: R50.9 Fever, unspecified (principal); Z11.59 Encounter for screening for other viral diseases

== ENCOUNTER 2016-12-18 08:35 | Emergency (ER) | payer OTHER ==
[~2016-12-18] VITALS: Ht 170.2 cm; Wt 113.4 kg
[~2016-12-18 08:35] MED LIST changes: -AUGM875T27 PO; +AUGM875T28 PO; -GABA600T PO; -KETO10TAB PO; -LASI20TA PO; -LYRI100C10 PO; +PERC5TAB12 PO; -PERC5TAB6 PO; +PREG100CA PO; -SUBO8MIS SL
[2016-12-18] MEDS ORDERED: SUBO8MIS SL (08:58)
[2016-12-18] MEDS ORDERED: GABA600T PO (08:58)
[2016-12-18] MEDS ORDERED: KETOROLAC 30 MG/ML VIAL (J1885) IV ONE (09:30)
[2016-12-18] MEDS ORDERED: IPRATROPIUM 0.5MG/ALBUTEROL 2.5MG INH SOL UD 3ML (DUONEB)(J7620) NEB ONE (09:30)
--- NOTE | 2016-12-18 09:38 | REP ---
Clinical: Dyspnea. Cough . Comparison: 07/04/2016 . Findings: The mediastinum and cardiac silhouette are stable and within normal limits for portable technique. The lung mota are clear without acute consolidation, effusion, or pneumothorax. Skeletal structures are intact. Impression: Normal portable chest x-ray Signed by Shaq Burton MD 12/18/2016 09:29 A
[2016-12-18 09:40] LABS: BASO % 0.5 % (0.0-1.0); EOS # 0.3 K/mm3 (0.0-0.50); EOS % 5.8 % (0.0-3.0); LARGE UNSTAINED CELL # 0.1 K/mm3 (0.0-0.4); LARGE UNSTAINED CELL % 1.7 % (0.0-4.0); LYMPH # 2.2 K/mm3 (1.5-4.5); LYMPH % 39.9 % (24.0-44.0); MEAN CORPUSCULAR HGB CONC 34.6 g/dl (32.0-36.5); MEAN CORPUSCULAR VOLUME 86.7 fl (80.0-96.0); MONO # 0.3 K/mm3 (0.0-0.8); MONO % 6.4 % (0.0-5.0); NEUTROPHILS # 2.4 K/mm3 (1.8-7.7); NEUTROPHILS % 45.7 % (36.0-66.0); PLATELET COUNT, AUTOMATED 258 k/mm3 (150-450); RED CELL DISTRIBUTION WIDTH 13.9 % (11.5-14.5); WHITE BLOOD COUNT 5.2 K/mm3 (4.0-10.0)
[2016-12-18 10:01] LABS: ALBUMIN 3.3 GM/DL (3.2-5.2); ALKALINE PHOSPHATASE 78 U/L (45-117); ALT/SGPT 64 U/L (12-78); ANION GAP 5 MEQ/L (8-16); AST/SGOT 40 U/L (15-37); BILIRUBIN,DIRECT < 0.1 MG/DL (0.0-0.2); BILIRUBIN,TOTAL 0.4 MG/DL (0.2-1.0); BLOOD UREA NITROGEN 12 MG/DL (7-18); CALCIUM LEVEL 8.7 MG/DL (8.5-10.1); CARBON DIOXIDE LEVEL 29 MEQ/L (21-32); CHLORIDE LEVEL 109 MEQ/L (98-107); CREATININE FOR GFR 0.62 MG/DL (0.55-1.02); GLOMERULAR FILTRATION RATE > 60.0 (>60); GLUCOSE, FASTING 109 MG/DL (70-105); POTASSIUM SERUM 4.2 MEQ/L (3.5-5.1); SODIUM LEVEL 143 MEQ/L (136-145); TOTAL PROTEIN 6.6 GM/DL (6.4-8.2)
[2016-12-18] MEDS ORDERED: ISOVUE-370 76% 100ML VIAL (Q9967) As Ordered ONE (10:36)
--- NOTE | 2016-12-18 11:09 | REP ---
Clinical: Acute chest pain with shortness of breath and elevated D-dimer levels. Technique: Axial contrast enhanced images from the thoracic inlet to the upper abdomen using 100 ml Isovue 370 intravenous contrast material with coronal and sagittal re-formations. Findings: Satisfactory enhancement of the pulmonary vasculature is achieved and no filling defects are identified to suggest pulmonary embolus. Thoracic aorta is normal caliber without aneurysm or dissection. Incidental note is made of aberrant right subclavian artery. Heart and pericardium are normal. Bilateral lung mota are well aerated. Mild subtle perihilar and lower lobe ground-glass opacities may reflect bronchitis. No focal pulmonary parenchymal consolidation. No nodule or mass lesion. No pleural effusion/reaction. No pneumothorax. No adenopathy. Impression: No evidence for pulmonary embolus. Mild bronchitis. Aberrant right subclavian artery. Signed by Shaq Burton MD 12/18/2016 11:01 A
[2016-12-18] MEDS ORDERED: ALBU17IN INH (11:43)
[2016-12-18] MEDS ORDERED: KETO10TAB PO (11:43)
[2016-12-18] MEDS ORDERED: LASI20TA PO (11:43)
[2016-12-18 11:49] VITALS: BP 122/62
--- NOTE | 2016-12-20 07:12 | ECGEPIP ---
Stationary ECG Study [facility] - ED Test Date: 2016-12-18 Pat Name: KATIE VAZQUEZ Department: Room: - Gender: F Director Title: rn : 1985 Requested By: Berenice Jackson Order Number: [id number] Reading MD: Berenice Jackson Measurements Intervals [place] Rate: 75 P: 46 KS: 146 QRS: 19 QRSD: 109 T: 17 QT: 393 QTc: 442 Interpretive Statements SINUS RHYTHM WITH SINUS ARRHYTHMIA IVCD INCREASED RATE 07/04/16 Electronically Signed On 12-20-2016 7:12:31 EDT by Berenice Jackson
== END 2016-12-18 12:18 | disposition home or self-care (01) ==
LOC: M ED 08:35
DX: R60.0 Localized edema (principal)

== ENCOUNTER 2016-12-19 19:17 | Emergency (ER) | payer OTHER ==
[~2016-12-19] VITALS: Ht 170.2 cm; Wt 121.0 kg
[~2016-12-19 19:17] MED LIST changes: +GABA600T PO; +KETO10TAB PO; +LASI20TA PO; +SUBO8MIS SL
[2016-12-19 19:18] VITALS: BP 157/95
[2016-12-19] MEDS ORDERED: KETOROLAC 60 MG/2 ML VIAL (J1885) IM ONE (21:45)
[2016-12-19] MEDS ORDERED: ONDANSETRON 4 MG ORAL DISINTEGRATING TAB (S0181) PO ONE (21:45)
--- NOTE | 2016-12-20 07:38 | ECGEPIP ---
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
--- NOTE | 2016-12-20 07:58 | REP ---
Clinical: Shortness of breath and chest pain . Comparison: 12/18/2016 . Technique: PA and lateral. Findings: The mediastinum and cardiac silhouette are normal. The lung mota are clear and without acute consolidation, effusion, or pneumothorax. The skeletal structures are intact and normal. Impression: 1. No acute cardiopulmonary process. Signed by Shaq Burton MD 12/20/2016 07:50 A
== END 2016-12-19 22:45 | disposition home or self-care (01) ==
LOC: M ED 19:17
DX: J20.9 Acute bronchitis, unspecified (principal)

== ENCOUNTER → 2016-12-20 | Outpatient (CLI) | payer OTHER ==
[~2016-12-20] MED LIST changes: +CELE10TA PO; +CELE40TA PO; +DULC5TAB PO; +LIDO1SOL7 MT; +METO10TA2 PO; +ONDA4TAB6 PO; +PENI250T57 PO; +PENI500T GT; +REGL10TA6 PO; +RISP1TAB42 PO; +SENN1TAB10 PO; +TOPA1TAB PO; +TRAZO50TA PO; +ZOFR4TAB3 PO
--- NOTE | 2016-12-20 17:06 | REP ---
Clinical: Orthopnea and swelling . Technique: Olivia scale and color Doppler evaluation using linear high frequency transducer. Findings: Ultrasound examination of the right and left lower extremity deep venous structures from the common femoral vein to the popliteal vein demonstrates normal compressibility flow and wave patterns in response to respiration and augmentation. There is no evidence for deep venous thrombosis. Impression: No evidence for deep venous thrombosis. Signed by Shaq Burton MD 12/20/2016 04:57 P
[2016-12-20 18:20] LABS: ANION GAP 7 MEQ/L (8-16); BLOOD UREA NITROGEN 16 MG/DL (7-18); CALCIUM LEVEL 9.1 MG/DL (8.5-10.1); CARBON DIOXIDE LEVEL 30 MEQ/L (21-32); CHLORIDE LEVEL 106 MEQ/L (98-107); CREATININE FOR GFR 0.76 MG/DL (0.55-1.02); GLOMERULAR FILTRATION RATE > 60.0 (>60); GLUCOSE, FASTING 101 MG/DL (70-105); POTASSIUM SERUM 4.4 MEQ/L (3.5-5.1); SODIUM LEVEL 143 MEQ/L (136-145)
== END ==
LOC: M LAB 16:25
PROVIDERS: ATTEND Physician Assistant Medical
DX: R06.01 Orthopnea (principal)

== ENCOUNTER → 2016-12-20 | Outpatient (RCR) | payer OTHER | LOC: M OUTALCOH 12-03 11:25 | PROVIDERS: ATTEND Psychiatry & Neurology Psychiatry | DX: F12.20 Cannabis dependence, uncomplicated (principal); F11.20 Opioid dependence, uncomplicated ==

== ENCOUNTER 2016-12-25 13:08 | Emergency (ER) | payer OTHER ==
[~2016-12-25] VITALS: Ht 170.2 cm; Wt 114.6 kg
[~2016-12-25 13:08] MED LIST changes: -CELE10TA PO; -CELE40TA PO; -DULC5TAB PO; -LIDO1SOL7 MT; -METO10TA2 PO; -ONDA4TAB6 PO; -PENI250T57 PO; -PENI500T GT; -REGL10TA6 PO; -RISP1TAB42 PO; -SENN1TAB10 PO; -TOPA1TAB PO; -TRAZO50TA PO; -ZOFR4TAB3 PO
[2016-12-25 13:10] VITALS: BP 139/76
== END 2016-12-25 14:54 | disposition home or self-care (01) ==
LOC: M ED 13:08
DX: H93.8X1 Other specified disorders of right ear (principal)

== ENCOUNTER → 2017-01-03 | Outpatient (REF) | payer OTHER ==
[~2017-01-03] MED LIST changes: +CELE10TA PO; +CELE40TA PO; +DULC5TAB PO; +LIDO1SOL7 MT; +METO10TA2 PO; +ONDA4TAB6 PO; +PENI250T57 PO; +PENI500T GT; +REGL10TA6 PO; +RISP1TAB42 PO; +SENN1TAB10 PO; +TOPA1TAB PO; +TRAZO50TA PO; +ZOFR4TAB3 PO
[2017-01-03 18:10] LABS: ANION GAP 7 MEQ/L (8-16); BLOOD UREA NITROGEN 18 MG/DL (7-18); CALCIUM LEVEL 8.9 MG/DL (8.5-10.1); CARBON DIOXIDE LEVEL 27 MEQ/L (21-32); CHLORIDE LEVEL 103 MEQ/L (98-107); CREATININE FOR GFR 0.75 MG/DL (0.55-1.02); GLOMERULAR FILTRATION RATE > 60.0 (>60); GLUCOSE, FASTING 98 MG/DL (70-105); POTASSIUM SERUM 3.9 MEQ/L (3.5-5.1); SODIUM LEVEL 137 MEQ/L (136-145)
== END ==
LOC: M SFHCPLAZ 16:07
PROVIDERS: ATTEND Physician Assistant Medical
DX: R19.7 Diarrhea, unspecified (principal)

== ENCOUNTER → 2017-01-06 | Outpatient (REF) | payer OTHER | LOC: M SFHCPLAZ 14:39 | PROVIDERS: ATTEND Physician Assistant Medical | DX: R19.7 Diarrhea, unspecified (principal) ==

== ENCOUNTER 2017-01-15 20:25 | Emergency (ER) | payer MEDICAID, OTHER ==
[~2017-01-15] VITALS: Ht 170.2 cm; Wt 104.5 kg
[~2017-01-15 20:25] MED LIST changes: -CELE10TA PO; -CELE40TA PO; -DULC5TAB PO; -LIDO1SOL7 MT; -METO10TA2 PO; -ONDA4TAB6 PO; -PENI250T57 PO; -PENI500T GT; -REGL10TA6 PO; -RISP1TAB42 PO; -SENN1TAB10 PO; -TOPA1TAB PO; -TRAZO50TA PO; -ZOFR4TAB3 PO
[2017-01-15] MEDS ORDERED: KETOROLAC 30 MG/ML VIAL (J1885) IV ONE (21:45)
[2017-01-15] MEDS ORDERED: ONDANSETRON 4MG/2ML VIAL (J2405) IV ONE (21:45)
[2017-01-15] MEDS ORDERED: NS 1,000 ML IV ONE (21:45)
[2017-01-15 22:10] LABS: CONTROL LINE UCG INT CTR LINE PRESENT
[2017-01-15 22:18] LABS: BASO % 0.4 % (0.0-1.0); EOS # 0.4 K/mm3 (0.0-0.50); LARGE UNSTAINED CELL # 0.1 K/mm3 (0.0-0.4); LARGE UNSTAINED CELL % 0.9 % (0.0-4.0); LYMPH # 3.2 K/mm3 (1.5-4.5); LYMPH % 44.5 % (24.0-44.0); MEAN CORPUSCULAR HGB CONC 36.1 g/dl (32.0-36.5); MEAN CORPUSCULAR VOLUME 83.3 fl (80.0-96.0); MONO # 0.3 K/mm3 (0.0-0.8); MONO % 4.8 % (0.0-5.0); NEUTROPHILS # 3.1 K/mm3 (1.8-7.7); NEUTROPHILS % 43.4 % (36.0-66.0); PLATELET COUNT, AUTOMATED 264 k/mm3 (150-450)
[2017-01-15 22:36] LABS: ALBUMIN 3.9 GM/DL (3.2-5.2); ALBUMIN/GLOBULIN RATIO 1.22 (1.00-1.93); ALKALINE PHOSPHATASE 119 U/L (45-117); ALT/SGPT 54 U/L (12-78); ANION GAP 5 MEQ/L (8-16); AST/SGOT 34 U/L (15-37); BILIRUBIN,DIRECT < 0.1 MG/DL (0.0-0.2); BILIRUBIN,TOTAL 0.3 MG/DL (0.2-1.0); BLOOD UREA NITROGEN 17 MG/DL (7-18); CALCIUM LEVEL 8.9 MG/DL (8.5-10.1); CARBON DIOXIDE LEVEL 32 MEQ/L (21-32); CHLORIDE LEVEL 102 MEQ/L (98-107); CREATININE FOR GFR 0.81 MG/DL (0.55-1.02); GLOMERULAR FILTRATION RATE > 60.0 (>60); GLUCOSE, FASTING 111 MG/DL (70-105); POTASSIUM SERUM 3.9 MEQ/L (3.5-5.1); SODIUM LEVEL 139 MEQ/L (136-145); TOTAL PROTEIN 7.1 GM/DL (6.4-8.2)
[2017-01-15] MEDS ORDERED: ZOFR4TAB3 PO (22:47)
[2017-01-15 22:52] VITALS: BP 125/69
== END 2017-01-15 23:09 | disposition home or self-care (01) ==
LOC: M ED 20:25
DX: A02.0 Salmonella enteritis (principal); E86.0 Dehydration; I10 Essential (primary) hypertension; J45.909 Unspecified asthma, uncomplicated
CPT/HCPCS: 80048; 80076; 81001; 83690; 84703; 85025; 96361; 96374; 96375; 99283; J1885; J2405

== ENCOUNTER 2017-01-17 10:31 | Emergency (ER) | payer OTHER ==
[~2017-01-17 10:31] MED LIST changes: +ZOFR4TAB3 PO
[2017-01-17] MEDS ORDERED: PROMETHAZINE INJ 25 MG/ML VIAL (J2550) IV ONE (10:45)
[2017-01-17] MEDS ORDERED: NS 1,000 ML IV ONE (10:45)
[2017-01-17 11:05] LABS: BASO % 0.3 % (0.0-1.0); EOS # 0.3 K/mm3 (0.0-0.50); EOS % 4.8 % (0.0-3.0); LARGE UNSTAINED CELL # 0.1 K/mm3 (0.0-0.4); LYMPH # 2.7 K/mm3 (1.5-4.5); LYMPH % 37.2 % (24.0-44.0); MEAN CORPUSCULAR HEMOGLOBIN 29.6 pg (27.0-33.0); MEAN CORPUSCULAR VOLUME 84.6 fl (80.0-96.0); MONO # 0.3 K/mm3 (0.0-0.8); MONO % 4.6 % (0.0-5.0); NEUTROPHILS # 3.6 K/mm3 (1.8-7.7); NEUTROPHILS % 52.1 % (36.0-66.0); PLATELET COUNT, AUTOMATED 243 k/mm3 (150-450); RED CELL DISTRIBUTION WIDTH 13.9 % (11.5-14.5)
[2017-01-17 11:17] LABS: CONTROL LINE HCG INT CTR LINE PRESENT
[2017-01-17 11:25] LABS: ALBUMIN 3.7 GM/DL (3.2-5.2); ALBUMIN/GLOBULIN RATIO 1.03 (1.00-1.93); ALKALINE PHOSPHATASE 103 U/L (45-117); ALT/SGPT 56 U/L (12-78); ANION GAP 9 MEQ/L (8-16); AST/SGOT 43 U/L (15-37); BILIRUBIN,DIRECT < 0.1 MG/DL (0.0-0.2); BILIRUBIN,TOTAL 0.3 MG/DL (0.2-1.0); BLOOD UREA NITROGEN 14 MG/DL (7-18); CALCIUM LEVEL 8.7 MG/DL (8.5-10.1); CARBON DIOXIDE LEVEL 28 MEQ/L (21-32); CHLORIDE LEVEL 104 MEQ/L (98-107); CREATININE FOR GFR 0.78 MG/DL (0.55-1.02); GLOMERULAR FILTRATION RATE > 60.0 (>60); GLUCOSE, FASTING 128 MG/DL (70-105); POTASSIUM SERUM 3.5 MEQ/L (3.5-5.1); SODIUM LEVEL 141 MEQ/L (136-145); TOTAL PROTEIN 7.3 GM/DL (6.4-8.2)
[2017-01-17] MEDS: MORPHINE 4 MG/ML 1ML SYRINGE IV PRN ×2 (11:41→12:21)
[2017-01-17 13:47] VITALS: BP 139/64
== END 2017-01-17 13:59 | disposition home or self-care (01) ==
LOC: EDBD 10:31 → M ED 10:31
DX: A02.0 Salmonella enteritis (principal)

== ENCOUNTER 2017-01-17 13:00 | Outpatient (RCR) | payer MEDICAID | END 2017-01-20 | LOC: M OUTALCOH 13:00 | PROVIDERS: ATTEND Psychiatry & Neurology Psychiatry | DX: F12.20 Cannabis dependence, uncomplicated (principal); F11.20 Opioid dependence, uncomplicated ==

== ENCOUNTER 2017-01-18 10:53 | Emergency (ER) | payer OTHER ==
[~2017-01-18] VITALS: Ht 170.2 cm; Wt 104.5 kg
[2017-01-18] MEDS ORDERED: ONDANSETRON 4MG/2ML VIAL (J2405) IV ONE (11:15)
[2017-01-18] MEDS ORDERED: KETOROLAC 30 MG/ML VIAL (J1885) IV ONE (11:15)
[2017-01-18] MEDS ORDERED: NS 1,000 ML IV ONE (11:15)
[2017-01-18 11:33] LABS: BASO % 0.3 % (0.0-1.0); EOS # 0.3 K/mm3 (0.0-0.50); LARGE UNSTAINED CELL # 0.1 K/mm3 (0.0-0.4); LYMPH # 2.1 K/mm3 (1.5-4.5); LYMPH % 31.1 % (24.0-44.0); MEAN CORPUSCULAR HEMOGLOBIN 29.3 pg (27.0-33.0); MEAN CORPUSCULAR HGB CONC 35.4 g/dl (32.0-36.5); MEAN CORPUSCULAR VOLUME 82.8 fl (80.0-96.0); MONO # 0.3 K/mm3 (0.0-0.8); MONO % 4.1 % (0.0-5.0); NEUTROPHILS # 3.8 K/mm3 (1.8-7.7); NEUTROPHILS % 58.5 % (36.0-66.0); PLATELET COUNT, AUTOMATED 253 k/mm3 (150-450); RED CELL DISTRIBUTION WIDTH 13.8 % (11.5-14.5); WHITE BLOOD COUNT 6.6 K/mm3 (4.0-10.0)
[2017-01-18 11:41] LABS: CALCIUM OXALATE CRYSTALS SMALL
[2017-01-18 12:08] LABS: ALBUMIN 3.8 GM/DL (3.2-5.2); ALBUMIN/GLOBULIN RATIO 1.06 (1.00-1.93); ALKALINE PHOSPHATASE 105 U/L (45-117); ALT/SGPT 69 U/L (12-78); ANION GAP 9 MEQ/L (8-16); AST/SGOT 59 U/L (15-37); BILIRUBIN,DIRECT < 0.1 MG/DL (0.0-0.2); BILIRUBIN,TOTAL 0.3 MG/DL (0.2-1.0); BLOOD UREA NITROGEN 13 MG/DL (7-18); CALCIUM LEVEL 8.8 MG/DL (8.5-10.1); CARBON DIOXIDE LEVEL 30 MEQ/L (21-32); CHLORIDE LEVEL 103 MEQ/L (98-107); CREATININE FOR GFR 0.82 MG/DL (0.55-1.02); GLOMERULAR FILTRATION RATE > 60.0 (>60); GLUCOSE, FASTING 129 MG/DL (70-105); POTASSIUM SERUM 3.4 MEQ/L (3.5-5.1); SODIUM LEVEL 142 MEQ/L (136-145); TOTAL PROTEIN 7.4 GM/DL (6.4-8.2)
--- NOTE | 2017-01-18 12:20 | REP ---
REASON: Chronic abdominal pain. COMPARISON: Multiple, the latest contrast enhanced of 10/17/2016. The lung bases are unchanged. There are no pleural or pericardial effusions. Limited evaluation of the solid intraabdominal organs show no gross abnormalities. Surgical clips are again seen in the gallbladder fossa from previous cholecystectomy. Limited evaluation of the pancreas, adrenal glands, and kidneys show no gross abnormalities. There is no nephroureterolithiasis, hydronephrosis, or hydroureter. There are no urinary bladder calcifications. Limited evaluation of the bowel loops and their mesenteries show no gross abnormalities or significant changes from the prior exam. There is no evidence of an intra-abdominal mass or adenopathy. Note is again made of a small left-sided periumbilical ventral rent through which only mesentery protrudes. This is unchanged. CT PELVIS: There is no free fluid or free air. There is no mass or adenopathy. The bowel loops and their mesenteries are within normal limits. Bone window technique throughout the exam shows no change in the osseous structures. IMPRESSION: No acute intra-abdominal or intrapelvic disease. There is an unchanged small left paraumbilical hernia. Findings as described above. Signed by Cornelius Mora DO 01/18/2017 12:26 P
[2017-01-18 12:29] VITALS: BP 108/57
== END 2017-01-18 12:38 | disposition home or self-care (01) ==
LOC: M ED 10:53
DX: R10.84 Generalized abdominal pain (principal); R11.2 Nausea with vomiting, unspecified; R19.7 Diarrhea, unspecified; Z87.891 Personal history of nicotine dependence
CPT/HCPCS: 36415; 74176; 80048; 80076; 81001; 83690; 85025; 87086; 96374; 96375; 99283; J1885; J2405

== ENCOUNTER → 2017-01-21 | Outpatient (REF) | payer OTHER ==
[~2017-01-21] MED LIST changes: +CELE10TA PO; +CELE40TA PO; +DULC5TAB PO; +LIDO1SOL7 MT; +METO10TA2 PO; +ONDA4TAB6 PO; +PENI250T57 PO; +PENI500T GT; +REGL10TA6 PO; +RISP1TAB42 PO; +SENN1TAB10 PO; +TOPA1TAB PO; +TRAZO50TA PO
[2017-01-21 16:36] LABS: ANION GAP 9 MEQ/L (8-16); BLOOD UREA NITROGEN 14 MG/DL (7-18); CALCIUM LEVEL 9.4 MG/DL (8.5-10.1); CARBON DIOXIDE LEVEL 29 MEQ/L (21-32); CHLORIDE LEVEL 102 MEQ/L (98-107); CREATININE FOR GFR 0.72 MG/DL (0.55-1.02); GLOMERULAR FILTRATION RATE > 60.0 (>60); GLUCOSE, FASTING 105 MG/DL (70-105); POTASSIUM SERUM 4.2 MEQ/L (3.5-5.1); SODIUM LEVEL 140 MEQ/L (136-145)
== END ==
LOC: M SFHCPLAZ 13:22
PROVIDERS: ATTEND Physician Assistant Medical
DX: R60.9 Edema, unspecified (principal); M79.7 Fibromyalgia

== ENCOUNTER 2017-02-20 17:41 | Emergency (ER) | payer MEDICAID, OTHER ==
[~2017-02-20 17:41] MED LIST changes: -CELE10TA PO; -CELE40TA PO; -DULC5TAB PO; -LIDO1SOL7 MT; -METO10TA2 PO; -ONDA4TAB6 PO; -PENI250T57 PO; -PENI500T GT; -REGL10TA6 PO; -RISP1TAB42 PO; -SENN1TAB10 PO; -TOPA1TAB PO; -TRAZO50TA PO
[2017-02-20] MEDS ORDERED: PENI500T GT (20:09)
[2017-02-20] MEDS ORDERED: LIDO1SOL7 MT (20:09)
[2017-02-20] MEDS ORDERED: LIDOCAINE VISCOUS 2% SOLN 15ML UDC SSP ONE (20:15)
[2017-02-20] MEDS ORDERED: PENI250T57 PO (20:22)
== END 2017-02-20 20:36 | disposition home or self-care (01) ==
LOC: M ED 17:41
DX: K02.9 Dental caries, unspecified (principal)

== ENCOUNTER → 2017-02-20 | Outpatient (RCR) | payer MEDICAID | LOC: M OUTALCOH 01-21 13:38 | PROVIDERS: ATTEND Psychiatry & Neurology Psychiatry | DX: F12.20 Cannabis dependence, uncomplicated (principal); F11.20 Opioid dependence, uncomplicated ==

== ENCOUNTER 2017-03-20 13:00 | Outpatient (RCR) | payer MEDICAID ==
[~2017-03-20 13:00] MED LIST changes: +LIDO1SOL7 MT; +PENI250T57 PO; +PENI500T GT
[2017-03-20] MEDS ORDERED: TOPA1TAB PO (22:32)
[2017-03-21] MEDS ORDERED: ZOFR4TAB3 PO (01:49)
[2017-03-23] MEDS ORDERED: REGL10TA6 PO (17:16)
== END 2017-03-22 ==
LOC: M OUTALCOH 13:00
PROVIDERS: ATTEND Psychiatry & Neurology Psychiatry
DX: F12.20 Cannabis dependence, uncomplicated (principal); F11.20 Opioid dependence, uncomplicated

== ENCOUNTER 2017-03-20 22:25 | Emergency (ER) | payer MEDICAID, OTHER ==
[~2017-03-20] VITALS: Ht 170.2 cm; Wt 113.6 kg
[2017-03-20] MEDS ORDERED: TOPA1TAB PO (22:32)
[2017-03-21] MEDS ORDERED: ONDANSETRON 4MG/2ML VIAL (J2405) IV ONE (00:45)
[2017-03-21] MEDS ORDERED: KETOROLAC 30 MG/ML VIAL (J1885) IV ONE (00:45)
[2017-03-21 01:16] LABS: BASO % 0.5 % (0.0-1.0); EOS # 0.3 10^3/uL (0.0-0.50); EOS % 3.4 % (0.0-3.0); IMMATURE GRANULOCYTE % 0.5 % (0-0); LYMPH # 3.1 10^3/uL (1.5-4.5); LYMPH % 34.5 % (24.0-44.0); MEAN CORPUSCULAR HEMOGLOBIN 28.5 pg (27.0-33.0); MEAN CORPUSCULAR HGB CONC 34.2 g/dl (32.0-36.5); MEAN CORPUSCULAR VOLUME 83.3 fl (80.0-96.0); MONO # 0.5 10^3/uL (0.0-0.8); MONO % 6.1 % (0.0-5.0); NEUTROPHILS # 4.9 10^3/uL (1.8-7.7); PLATELET COUNT, AUTOMATED 241 10^3/uL (150-450); RED CELL DISTRIBUTION WIDTH 13.4 % (11.5-14.5); WHITE BLOOD COUNT 8.9 10^3/uL (4.0-10.0)
[2017-03-21 01:40] LABS: ALBUMIN 4.3 GM/DL (3.2-5.2); ALBUMIN/GLOBULIN RATIO 1.16 (1.00-1.93); ALKALINE PHOSPHATASE 100 U/L (45-117); ALT/SGPT 69 U/L (12-78); AMYLASE 39 U/L (25-115); ANION GAP 4 MEQ/L (8-16); AST/SGOT 35 U/L (15-37); BILIRUBIN,DIRECT 0.1 MG/DL (0.0-0.2); BILIRUBIN,TOTAL 0.4 MG/DL (0.2-1.0); BLOOD UREA NITROGEN 14 MG/DL (7-18); CALCIUM LEVEL 9.1 MG/DL (8.5-10.1); CARBON DIOXIDE LEVEL 29 MEQ/L (21-32); CHLORIDE LEVEL 106 MEQ/L (98-107); CREATININE FOR GFR 0.78 MG/DL (0.55-1.02); GLOMERULAR FILTRATION RATE > 60.0 (>60); GLUCOSE, FASTING 88 MG/DL (70-105); POTASSIUM SERUM 3.7 MEQ/L (3.5-5.1); SODIUM LEVEL 139 MEQ/L (136-145)
[2017-03-21] MEDS ORDERED: GI COCKTAIL 50ML BTL(HYOSCYAMINE/MAALOX/LIDOCAINE VISCOUS)(1:3:1) PO ONE (01:45)
[2017-03-21] MEDS ORDERED: ZOFR4TAB3 PO (01:49)
[2017-03-21 02:03] VITALS: BP 168/88
[2017-03-21 02:05] LABS: CALCIUM OXALATE CRYSTALS LARGE
== END 2017-03-21 02:04 | disposition home or self-care (01) ==
LOC: M ED 22:25
DX: K29.00 Acute gastritis without bleeding (principal); Z87.891 Personal history of nicotine dependence
CPT/HCPCS: 80048; 80076; 81001; 82150; 83690; 85025; 96374; 96375; 99283; J1885; J2405

== ENCOUNTER 2017-03-23 12:32 | Emergency (ER) | payer OTHER ==
[~2017-03-23] VITALS: Ht 170.2 cm; Wt 113.6 kg
[~2017-03-23 12:32] MED LIST changes: +TOPA1TAB PO
[2017-03-23] MEDS ORDERED: KETOROLAC 30 MG/ML VIAL (J1885) IV ONE (14:00)
[2017-03-23] MEDS ORDERED: NS 1,000 ML IV ONE (14:00)
[2017-03-23] MEDS ORDERED: METOCLOPRAMIDE INJ 10MG/2ML VIAL (J2765) IV ONE (14:00)
[2017-03-23] MEDS: GASTROGRAFIN SOLUTION 30ML (Q9963) PO ONE ×2 (14:20→15:00)
[2017-03-23 14:22] LABS: BASO % 0.3 % (0.0-1.0); EOS # 0.2 10^3/uL (0.0-0.50); EOS % 2.6 % (0.0-3.0); IMMATURE GRANULOCYTE % 0.5 % (0-0); LYMPH # 1.8 10^3/uL (1.5-4.5); LYMPH % 26.8 % (24.0-44.0); MEAN CORPUSCULAR HEMOGLOBIN 28.3 pg (27.0-33.0); MEAN CORPUSCULAR HGB CONC 34.6 g/dl (32.0-36.5); MONO # 0.3 10^3/uL (0.0-0.8); NEUTROPHILS # 4.3 10^3/uL (1.8-7.7); NEUTROPHILS % 64.8 % (36.0-66.0); PLATELET COUNT, AUTOMATED 241 10^3/uL (150-450); RED CELL DISTRIBUTION WIDTH 13.2 % (11.5-14.5); WHITE BLOOD COUNT 6.6 10^3/uL (4.0-10.0)
[2017-03-23 14:42] LABS: ALKALINE PHOSPHATASE 92 U/L (45-117); ALT/SGPT 60 U/L (12-78); AMYLASE 38 U/L (25-115); AST/SGOT 26 U/L (15-37); BILIRUBIN,DIRECT 0.1 MG/DL (0.0-0.2); BILIRUBIN,TOTAL 0.4 MG/DL (0.2-1.0); BLOOD UREA NITROGEN 13 MG/DL (7-18); CALCIUM LEVEL 8.8 MG/DL (8.5-10.1); CHLORIDE LEVEL 104 MEQ/L (98-107); CREATININE FOR GFR 0.73 MG/DL (0.55-1.02); GLUCOSE, FASTING 105 MG/DL (70-105); POTASSIUM SERUM 4.1 MEQ/L (3.5-5.1); SODIUM LEVEL 137 MEQ/L (136-145); TOTAL PROTEIN 7.5 GM/DL (6.4-8.2)
[2017-03-23] MEDS ORDERED: GASTROGRAFIN SOLUTION 30ML (Q9963) PO ONE (14:50)
[2017-03-23 15:08] LABS: ALBUMIN 4.2 GM/DL (3.2-5.2); ALBUMIN/GLOBULIN RATIO 1.27 (1.00-1.93); ANION GAP 7 MEQ/L (8-16); CARBON DIOXIDE LEVEL 26 MEQ/L (21-32)
[2017-03-23] MEDS ORDERED: TRIMETHOBENZAMIDE HCL INJ 200 MG/2 ML VIAL (J3250) IM ONE (15:15)
[2017-03-23] MEDS ORDERED: ISOVUE-370 76% 100ML VIAL (Q9967) As Ordered ONE (15:51)
[2017-03-23] MEDS ORDERED: REGL10TA6 PO (17:16)
[2017-03-23 17:28] VITALS: BP 126/68
--- NOTE | 2017-03-24 06:53 | REP ---
CT ABDOMEN AND PELVIS WITH CONTRAST: HISTORY: Abdominal pain. CONTRAST: Isovue 370, 75 mL. COMPARISON: 12/03/2016. The patient is status post cholecystectomy. The liver, pancreas, spleen, adrenal glands and kidneys are normal in appearance. There is no mass, adenopathy or free fluid. A small 1.9 cm periumbilical hernia containing fat is present. The visualized lungs are clear. The urinary bladder and uterus are normal in appearance. IMPRESSION: 1. The patient is status post cholecystectomy. 2. Small 1.9 cm left periumbilical hernia unchanged compared to the previous study. Signed by Kike Ibrahim MD 03/24/2017 08:59 A
== END 2017-03-23 17:32 | disposition home or self-care (01) ==
LOC: M ED 12:32
DX: R10.84 Generalized abdominal pain (principal); R11.2 Nausea with vomiting, unspecified; J45.909 Unspecified asthma, uncomplicated; D68.59 Other primary thrombophilia; K58.9 Irritable bowel syndrome, unspecified; M79.7 Fibromyalgia; F19.10 Other psychoactive substance abuse, uncomplicated; K42.9 Umbilical hernia without obstruction or gangrene; Z79.899 Other long term (current) drug therapy
CPT/HCPCS: 74177; 80048; 80076; 81001; 81025; 82150; 83605; 83690; 85025; 86140; 96372; 96374; 96375; 99283; J1885; J2765; J3250; Q9967

== ENCOUNTER 2017-03-31 16:16 | Inpatient (IN) | payer MEDICAID, OTHER ==
[~2017-03-31] VITALS: Ht 170.2 cm; Wt 111.4 kg
[~2017-03-31 16:16] MED LIST changes: +REGL10TA6 PO
[2017-03-31] MEDS ORDERED: CELE40TA PO (16:35)
[2017-03-31 17:31] LABS: MEAN CORPUSCULAR HEMOGLOBIN 29.1 pg (27.0-33.0); MEAN CORPUSCULAR HGB CONC 35.4 g/dl (32.0-36.5); MEAN CORPUSCULAR VOLUME 82.3 fl (80.0-96.0); RED CELL DISTRIBUTION WIDTH 13.5 % (11.5-14.5); WHITE BLOOD COUNT 8.2 10^3/uL (4.0-10.0)
[2017-03-31 17:56] LABS: METHADONE URINE NEGATIVE (NEGATIVE)
[2017-03-31] MEDS ORDERED: SENN1TAB10 PO (17:56)
[2017-03-31] MEDS ORDERED: GABA-283 PO (17:56)
[2017-03-31] MEDS ORDERED: ONDA4TAB6 PO (17:56)
[2017-03-31] MEDS ORDERED: DULC5TAB PO (17:56)
[2017-03-31] MEDS ORDERED: METO10TA2 PO (17:56)
[2017-03-31] MEDS ORDERED: ALBU17IN INH (17:56)
[2017-03-31 18:21] LABS: ALBUMIN 3.9 GM/DL (3.2-5.2); ALBUMIN/GLOBULIN RATIO 1.08 (1.00-1.93); ALKALINE PHOSPHATASE 102 U/L (45-117); ALT/SGPT 30 U/L (12-78); ANION GAP 9 MEQ/L (8-16); AST/SGOT 12 U/L (15-37); BILIRUBIN,DIRECT < 0.1 MG/DL (0.0-0.2); BILIRUBIN,TOTAL 0.3 MG/DL (0.2-1.0); BLOOD UREA NITROGEN 10 MG/DL (7-18); CALCIUM LEVEL 8.8 MG/DL (8.5-10.1); CARBON DIOXIDE LEVEL 24 MEQ/L (21-32); CHLORIDE LEVEL 107 MEQ/L (98-107); CREATININE FOR GFR 0.75 MG/DL (0.55-1.02); GLOMERULAR FILTRATION RATE > 60.0 (>60); GLUCOSE, FASTING 91 MG/DL (70-105); POTASSIUM SERUM 3.9 MEQ/L (3.5-5.1); SODIUM LEVEL 140 MEQ/L (136-145); TOTAL PROTEIN 7.5 GM/DL (6.4-8.2)
[2017-03-31] MEDS ORDERED: ACETAMINOPHEN TAB 650MG DOSE (2X325MG) PO PRN (19:00)
[2017-03-31] MEDS ORDERED: MAALOX 30 ML SUSP *UDC PO PRN (19:00)
[2017-03-31] MEDS ORDERED: MOM 30ML SUSPENSION UDC PO PRN (19:00)
[2017-03-31 20:41] VITALS: BP 137/85
[2017-03-31] MEDS ORDERED: PALIPERIDONE 3 MG ER TAB (INVEGA) PO SCH (21:00)
[2017-03-31] MEDS: traZODone 50 MG TAB PO PRN (22:09)
[2017-03-31] MEDS: GABAPENTIN 400 MG CAP PO SCH (22:56)
[2017-04-01 06:44] VITALS: BP 133/74
[2017-04-01] MEDS: GABAPENTIN 400 MG CAP PO SCH ×3 (08:08→20:14)
[2017-04-01] MEDS: BUPRENORPHINE/NALOXONE 8-2MG SUBLINGUAL TABLET(SUBOXONE) SL SCH (08:10)
--- NOTE | 2017-04-01 10:05 | HPEPDOC ---
[facility] Medical History & Physical Date of Admission Mar 31, 2017 History and Physical PCP: Eduardo Prasad SUPERVISOR [employer]ILL[employer]ING ATTENDING: Dr. Yakov Saldana HPI: 31yoF admitted to [facility] for bipolar disorder, being medically examined today. No acute medical complaints today. Patient states she was seen 03/20 and 03/23 in the emergency department for abdominal pain and vomiting related to gastritis. She was given prescriptions for Zofran and Reglan. She states her symptoms have now resolved. She is eating and drinking. Patient states she takes Topamax for her mood. Patient states she takes gabapentin for chronic pain. Denies any fevers, chills, weakness, fatigue, LEIJA, CP, SOB, cough, palpitations, abdominal pain, N/V/D or changes in bowel or bladder habits. PMHx: Anxiety Depression Bipolar disorder Panic attack Asthma Factor V Leiden carrier Allergic rhinitis Migraine headache Fibromyalgia Ovarian cyst Endometriosis NAFLD History of substance use. Dr Spence Chronic constipation/IBS PSHX: 2 Partial hysterectomy Appendectomy Cholecystectomy Lysis of adhesions SOCHX: Resides in: [facility] Marital Status: Single Kids: 3 Employment: Unemployed Tobacco use: Denies ETOH: Denies Illicit Drugs: History of opiates, marijuana. Currently on Suboxone as per Dr. Spence. IV Drug Use: Denies Tattoos done unprofessionally: Denies FAMHX: Mother: Alive, well Father: Alive, hypertension Siblings: Alive, hypertension Children: Alive, well Unexpected deaths due to medical reasons: None. ROS: As noted in HPI, otherwise 11pt ROS of systems reviewed and remarkable only for LMP NA, hysterectomy PE: GEN: 31 yo F, appears stated age. Well-nourished, well developed. No acute distress. Alert and oriented x 3. Pleasant, interactive. HEENT: Normocephalic, atraumatic. Pupils are equal, round, and reactive to light. Extraocular movements are intact. No nystagmus appreciated. Sclera are nonicteric. Conjunctiva without injection. Nose midline. Nasal turbinates without bogginess. EACs both patent BL. TMs both visualized and hooker with good cone of light, no bulging or erythema. No facial asymmetry. Moist mucous membranes. Dentition fair. Pharynx pink and moist, no cobblestoning. Neck supple , trachea midline. No lymphadenopathy or thyromegaly appreciated. CHEST: Regular rate and rhythm, +S1, +S2 LUNGS: Clear to auscultation bilaterally. No wheezes, rales, or rhonchi. Breathing appears symmetric and easy. Patient is speaking in full sentences. No accessory muscle use. ABD: Round, soft, non-tender, non-distended. +Bowel sounds throughout. No rebound or guarding. No costovertebral angle tenderness. EXT: Pulses 2+ bilaterally dorsalis pedis and radial. No lower extremity edema appreciated. SKIN: [place], dry, warm. Capillary refill <2sec. No rashes. NEURO: Alert and oriented x 3. Cranial nerves III-XII are intact. No focal deficits appreciated. EKG: pending. A&P: 31yoF admitted to [facility] for bipolar disorder 1. Psych. Plan per Psychiatry. Obtain baseline EKG to assure the safety of psychiatric medications as they can prolong the QT interval. 2. Fibromyalgia/chronic pain. Continue gabapentin 400 mg by mouth 3 times a day. 3. Asthma. Continue albuterol 2 puffs every 4 hours as needed. 4. Follow up with PCP on discharge. 5. History of Substance use. Per psychiatry. 6. Chronic constipation/IBS. Continue Dulcolax and senna daily at bedtime. 7. History of abdominal pain, nausea, vomiting. Symptoms seem to be resolved. She is afebrile. Asymptomatic. No leukocytosis. LFTs are within normal limits. Monitor. Patient has not been using Zofran or Reglan at this time. Staff member Lizbeth present throughout exam. Vital Signs Vital Signs Date Time Temp Pulse Resp B/P (MAP) Pulse Ox O2 Delivery O2 Flow Rate FiO2 04/01/17 06:44 97.8 56 16 133/74 (93) Room Air 03/31/17 20:41 98 Laboratory Data Labs 24H Laboratory Tests 2 03/31/17 17:19: Anion Gap 9, Glomerular Filtration Rate > 60.0, Calcium Level 8.8, Aspartate Amino Transf (AST/SGOT) 12L, Alanine Aminotransferase (ALT/SGPT) 30, Alkaline Phosphatase 102, Total Bilirubin 0.3, Direct Bilirubin < 0.1, Total Protein 7.5 , Albumin 3.9, Albumin/Globulin Ratio 1.08, Thyroid Stimulating Hormone (TSH) 1.430, Salicylates Level < 1.7L, Acetaminophen Level < 2.0L, Ethyl Alcohol Level < 0.003 03/31/17 17:22: Urine Amphetamines Screen NEGATIVE, Urine Benzodiazepines Screen NEGATIVE, Urine Opiates Screen NEGATIVE, Urine Methadone Screen NEGATIVE, Urine Barbiturates Screen NEGATIVE, Urine Phencyclidine Screen NEGATIVE, Urine Cocaine Metabolite Screen NEGATIVE, Urine Cannabinoids Screen NEGATIVE CBC/BMP Laboratory Tests 03/31/17 17:19 Red Blood Count 4.36, Mean Corpuscular Volume 82.3, Mean Corpuscular Hemoglobin 29.1, Mean Corpuscular Hemoglobin Concent 35.4, Red Cell Distribution Width 13.5 Home Medications Scheduled Bisacodyl (Dulcolax) 5 Mg Tab, 5 MG PO QHS Buprenorphine/Naloxone (Suboxone 8-2 mg) 1 Mis Mis, 3 TABS SL DAILY Citalopram Hydrobromide (Celexa) 40 Mg Tab, 40 MG PO DAILY Gabapentin (Gabapentin) 600 Mg Tab, 600 MG PO QID PT STATES SHE TAKES WITH 400MG DOSE Gabapentin (Gabapentin) 400 Mg Cap, 400 MG PO TID PT STATES SHE TAKES WITH 600 MG DOSE Senna (Senna Lax) 8.6 Mg Tab, 1 TAB PO QHS Topiramate (Topamax) 25 Mg Tab, 25 MG PO BID Scheduled PRN Albuterol Sulfate (Ventolin Hfa) 200 Puff/8 Gm Aers, 2 PUFF INH Q6H PRN for SHORTNESS OF BREATH Metoclopramide HCl (Metoclopramide HCl) 10 Mg Tab, 10 MG PO Q6H PRN for NAUSEA Ondansetron (Ondansetron Odt) 4 Mg Tab, 4 MG PO Q4H PRN for NAUSEA Allergies Coded Allergies: No Known Allergies (Verified , 03/20/17) Delilah Villalpando Apr 01, 2017 10:05
[2017-04-01] MEDS ORDERED: ALBUTEROL 90 MCG/ACT 8GM HFA INHALER INH PRN (10:15)
[2017-04-01] MEDS: CitaloPRAM (CeleXA) 10 MG TABLET PO SCH (11:07)
[2017-04-01] MEDS: TOPIRAMATE (TopAMAX) 25 MG TAB PO SCH (11:07)
[2017-04-01 18:00] VITALS: BP 133/69
[2017-04-01] MEDS: risperiDONE 1 MG TAB PO SCH (20:14)
[2017-04-01] MEDS: traZODone 50 MG TAB PO PRN (20:15)
[2017-04-01] MEDS ORDERED: SENNA 8.6 MG TAB (SENOKOT) PO SCH (21:00)
[2017-04-01] MEDS ORDERED: PALIPERIDONE 3 MG ER TAB (INVEGA) PO SCH (21:00)
[2017-04-01] MEDS ORDERED: BISACODYL 5 MG TAB PO SCH (21:00)
[2017-04-02 06:51] VITALS: BP 109/55
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
[2017-04-02] MEDS: GABAPENTIN 400 MG CAP PO SCH (10:26)
[2017-04-02] MEDS: risperiDONE 1 MG TAB PO SCH (10:26)
[2017-04-02] MEDS: BUPRENORPHINE/NALOXONE 8-2MG SUBLINGUAL TABLET(SUBOXONE) SL SCH (10:26)
[2017-04-02] MEDS: CitaloPRAM (CeleXA) 10 MG TABLET PO SCH (10:26)
[2017-04-02] MEDS: TOPIRAMATE (TopAMAX) 25 MG TAB PO SCH (10:26)
[2017-04-02] MEDS ORDERED: CELE10TA PO (11:22)
[2017-04-02] MEDS ORDERED: TRAZO50TA PO (11:22)
[2017-04-02] MEDS ORDERED: GABA-283 PO (11:22)
[2017-04-02] MEDS ORDERED: RISP1TAB42 PO (11:22)
[2017-04-02] MEDS ORDERED: TOPA1TAB PO (11:22)
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
[2017-04-03] MEDS ORDERED: INFLUENZA QUADRIVALENT PF VACCINE 0.5ML SYRINGE (90686) IM ONE (09:00)
== END 2017-04-02 12:06 | disposition home or self-care (01) | DRG 753 ==
LOC: EDBD 16:16 → M ED 16:16 → M ED INP 19:00 → M PSY 19:50
PROVIDERS: ADMIT Psychiatry & Neurology Psychiatry; ATTEND Psychiatry & Neurology Psychiatry
DX: F31.60 Bipolar disorder, current episode mixed, unspecified (principal); R45.851 Suicidal ideations; F43.10 Post-traumatic stress disorder, unspecified; F60.3 Borderline personality disorder; K58.1 Irritable bowel syndrome with constipation; F19.21 Other psychoactive substance dependence, in remission; M79.7 Fibromyalgia; F29 Unspecified psychosis not due to a substance or known physiological condition; J45.909 Unspecified asthma, uncomplicated; G43.909 Migraine, unspecified, not intractable, without status migrainosus; Z90.49 Acquired absence of other specified parts of digestive tract; Z90.711 Acquired absence of uterus with remaining cervical stump; Z79.899 Other long term (current) drug therapy

== ENCOUNTER → 2017-04-11 | Outpatient (REF) | payer OTHER ==
[~2017-04-11] MED LIST changes: +CELE10TA PO; +CELE40TA PO; +DULC5TAB PO; +METO10TA2 PO; +ONDA4TAB6 PO; +RISP1TAB42 PO; +SENN1TAB10 PO; +TRAZO50TA PO
[2017-04-11 14:03] LABS: ANION GAP 9 MEQ/L (8-16); BLOOD UREA NITROGEN 16 MG/DL (7-18); CALCIUM LEVEL 9.2 MG/DL (8.5-10.1); CARBON DIOXIDE LEVEL 26 MEQ/L (21-32); CHLORIDE LEVEL 105 MEQ/L (98-107); CREATININE FOR GFR 0.87 MG/DL (0.55-1.02); GLOMERULAR FILTRATION RATE > 60.0 (>60); GLUCOSE, FASTING 87 MG/DL (70-105); POTASSIUM SERUM 3.9 MEQ/L (3.5-5.1); SODIUM LEVEL 140 MEQ/L (136-145)
== END ==
LOC: M SFHCPLAZ 10:58
PROVIDERS: ATTEND Physician Assistant Medical
DX: M79.7 Fibromyalgia (principal)

== ENCOUNTER 2017-05-19 14:00 | Outpatient (RCR) | payer MEDICAID | END 2017-05-22 | LOC: M OUTALCOH 14:00 | PROVIDERS: ATTEND Psychiatry & Neurology Psychiatry | DX: F12.20 Cannabis dependence, uncomplicated (principal); F11.20 Opioid dependence, uncomplicated ==

== ENCOUNTER 2017-05-26 14:56 | Outpatient (RCR) | payer MEDICAID | END 2017-06-22 | LOC: M OUTALCOH 06-02 14:00 | DX: F12.20 Cannabis dependence, uncomplicated (principal); F11.20 Opioid dependence, uncomplicated ==

== ENCOUNTER → 2017-08-20 | Outpatient (REF) | payer OTHER ==
[2017-08-20 16:20] LABS: BASO % 0.4 % (0.0-1.0); EOS # 0.2 10^3/uL (0.0-0.50); EOS % 3.5 % (0.0-3.0); HEMATOCRIT 38.3 % (36.0-47.0); HEMOGLOBIN 12.7 g/dl (12.0-16.0); IMMATURE GRANULOCYTE % 0.4 % (0-3.0); LYMPH % 34.9 % (24.0-44.0); MEAN CORPUSCULAR HEMOGLOBIN 29.3 pg (27.0-33.0); MEAN CORPUSCULAR HGB CONC 33.2 g/dl (32.0-36.5); MEAN CORPUSCULAR VOLUME 88.5 fl (80.0-96.0); MONO # 0.4 10^3/uL (0.0-0.8); MONO % 6.3 % (0.0-5.0); NEUTROPHILS # 3.1 10^3/uL (1.8-7.7); NEUTROPHILS % 54.5 % (36.0-66.0); PLATELET COUNT, AUTOMATED 281 10^3/uL (150-450); RED BLOOD COUNT 4.33 10^6/uL (4.00-5.40); RED CELL DISTRIBUTION WIDTH 13.2 % (11.5-14.5); WHITE BLOOD COUNT 5.7 10^3/uL (4.0-10.0)
[2017-08-20 17:04] LABS: ALBUMIN 4.3 GM/DL (3.2-5.2); ALBUMIN/GLOBULIN RATIO 1.26 (1.00-1.93); ALKALINE PHOSPHATASE 96 U/L (45-117); ALT/SGPT 17 U/L (12-78); ANION GAP 4 MEQ/L (8-16); AST/SGOT 10 U/L (7-37); BILIRUBIN,TOTAL 0.4 MG/DL (0.2-1.0); BLOOD UREA NITROGEN 16 MG/DL (7-18); CALCIUM LEVEL 8.5 MG/DL (8.5-10.1); CARBON DIOXIDE LEVEL 29 MEQ/L (21-32); CHLORIDE LEVEL 108 MEQ/L (98-107); CHOLESTEROL LEVEL 235 MG/DL (<200); CHOLESTEROL RISK RATIO 5.465 (<5); CREATININE FOR GFR 1.01 MG/DL (0.55-1.30); FREE T4 0.98 NG/DL (0.76-1.46); GLOMERULAR FILTRATION RATE > 60.0 (>60); GLUCOSE, FASTING 82 MG/DL (70-100); HDL CHOLESTEROL 43 MG/DL (>40); LDL CHOLESTEROL 161.4 MG/DL (<100); NON-HDL-C 192 MG/DL; POTASSIUM SERUM 3.9 MEQ/L (3.5-5.1); SODIUM LEVEL 141 MEQ/L (136-145); TOTAL PROTEIN 7.7 GM/DL (6.4-8.2); TRIGLYCERIDES LEVEL 153 MG/DL (<150)
[2017-08-20 17:10] LABS: TOTAL 25(OH) VITAMIN D 45.5 NG/ML (30.0-100.0)
[2017-08-20 17:11] LABS: PTH INTACT 53.5 PG/ML (18.5-88.0)
== END ==
LOC: M SFHCPLAZ 10:48
DX: E55.9 Vitamin D deficiency, unspecified (principal); F41.9 Anxiety disorder, unspecified; J45.31 Mild persistent asthma with (acute) exacerbation; Z13.220 Encounter for screening for lipoid disorders
CPT/HCPCS: 84443

== ENCOUNTER 2018-01-08 12:55 | Emergency (ER) | payer OTHER, MEDICAID ==
[2018-01-08 15:29] LABS: BASO % 0.2 % (0.0-1.0); EOS # 0.5 10^3/uL (0.0-0.50); EOS % 7.1 % (0.0-3.0); HEMATOCRIT 36.4 % (36.0-47.0); HEMOGLOBIN 12.1 g/dl (12.0-15.5); IMMATURE GRANULOCYTE % 0.3 % (0-3.0); LYMPH # 2.9 10^3/uL (1.5-4.5); LYMPH % 45.3 % (24.0-44.0); MEAN CORPUSCULAR HEMOGLOBIN 28.3 pg (27.0-33.0); MEAN CORPUSCULAR HGB CONC 33.2 g/dl (32.0-36.5); MONO # 0.5 10^3/uL (0.0-0.8); MONO % 7.3 % (0.0-5.0); NEUTROPHILS # 2.5 10^3/uL (1.8-7.7); NEUTROPHILS % 39.8 % (36.0-66.0); PLATELET COUNT, AUTOMATED 280 10^3/uL (150-450); RED BLOOD COUNT 4.28 10^6/uL (4.00-5.40); RED CELL DISTRIBUTION WIDTH 12.3 % (11.5-14.5); WHITE BLOOD COUNT 6.3 10^3/uL (4.0-10.0)
[2018-01-08] MEDS: diphenhydrAMINE INJ 50MG/ML VIAL (J1200) IV (15:51)
[2018-01-08] MEDS: ONDANSETRON 4MG/2ML VIAL (J2405) IV (15:51)
[2018-01-08] MEDS: NS 1,000 ML IV (15:51)
[2018-01-08 15:52] LABS: ALBUMIN 3.4 GM/DL (3.2-5.2); ALBUMIN/GLOBULIN RATIO 1.03 (1.00-1.93); ALKALINE PHOSPHATASE 109 U/L (45-117); ALT/SGPT 47 U/L (12-78); ANION GAP 4 MEQ/L (8-16); AST/SGOT 22 U/L (7-37); BILIRUBIN,TOTAL 0.3 MG/DL (0.2-1.0); BLOOD UREA NITROGEN 15 MG/DL (7-18); CALCIUM LEVEL 8.8 MG/DL (8.5-10.1); CARBON DIOXIDE LEVEL 34 MEQ/L (21-32); CHLORIDE LEVEL 106 MEQ/L (98-107); CREATININE FOR GFR 0.61 MG/DL (0.55-1.30); GLOMERULAR FILTRATION RATE > 60.0 (>60); GLUCOSE, FASTING 93 MG/DL (70-100); LIPASE 81 U/L (73-393); POTASSIUM SERUM 3.7 MEQ/L (3.5-5.1); SODIUM LEVEL 144 MEQ/L (136-145); TOTAL PROTEIN 6.7 GM/DL (6.4-8.2)
[2018-01-08] MEDS: KETOROLAC 30 MG/ML VIAL (J1885) IV (15:52)
[2018-01-09 11:40] LABS: HEPATITIS B SURFACE ANTIGEN NEGATIVE (NEGATIVE)
[2018-01-09 12:05] LABS: HEPATITIS C VIRUS ABY INDEX < 0.0 INDEX (<0.8)
[2018-01-09 12:06] LABS: HEPATITIS B CORE ANTIBODY IGM NEGATIVE (NEGATIVE)
[2018-01-09 12:07] LABS: HEPATITIS A ANTIBODY IGM NEGATIVE (NEGATIVE)
== END 2018-01-08 16:37 | disposition home or self-care (01) ==
LOC: M ED 12:55
DX: R59.0 Localized enlarged lymph nodes (principal); I10 Essential (primary) hypertension; M79.7 Fibromyalgia; J45.909 Unspecified asthma, uncomplicated; R56.9 Unspecified convulsions; D68.59 Other primary thrombophilia; Z87.891 Personal history of nicotine dependence; Z79.899 Other long term (current) drug therapy
CPT/HCPCS: J1200

== ENCOUNTER → 2018-01-09 | Outpatient (CLI) | payer OTHER | LOC: M WHC 14:10 | DX: N63.20 Unspecified lump in the left breast, unspecified quadrant (principal); N64.4 Mastodynia ==

== ENCOUNTER 2018-01-14 09:44 | Emergency (ER) | payer OTHER ==
[2018-01-14] MEDS: ONDANSETRON 4MG/2ML VIAL (J2405) IV (10:30)
[2018-01-14] MEDS: NS 1,000 ML IV (10:43)
[2018-01-14 10:50] LABS: BASO % 0.3 % (0.0-1.0); EOS # 0.3 10^3/uL (0.0-0.50); EOS % 6.8 % (0.0-3.0); HEMATOCRIT 36.4 % (36.0-47.0); IMMATURE GRANULOCYTE % 0.3 % (0-3.0); LYMPH # 1.3 10^3/uL (1.5-4.5); LYMPH % 34.7 % (24.0-44.0); MEAN CORPUSCULAR HEMOGLOBIN 27.8 pg (27.0-33.0); MEAN CORPUSCULAR VOLUME 84.5 fl (80.0-96.0); MONO # 0.4 10^3/uL (0.0-0.8); MONO % 10.3 % (0.0-5.0); NEUTROPHILS # 1.8 10^3/uL (1.8-7.7); NEUTROPHILS % 47.6 % (36.0-66.0); PLATELET COUNT, AUTOMATED 275 10^3/uL (150-450); RED BLOOD COUNT 4.31 10^6/uL (4.00-5.40); RED CELL DISTRIBUTION WIDTH 12.6 % (11.5-14.5); WHITE BLOOD COUNT 3.8 10^3/uL (4.0-10.0)
[2018-01-14 10:53] LABS: KETONE, URINE AUTO RFX NEGATIVE (NEGATIVE); MUCUS, URINE RFX LARGE (NEGATIVE); NITRITE, URINE AUTO RFX NEGATIVE (NEGATIVE); RBC, URINE AUTO RFX 1 /HPF (0-3); SPECIFIC GRAVITY UR AUTO RFX 1.021 (1.002-1.035); SQUAM EPITHELIAL CELL UR AURFX 18 /HPF (0-6); WBC, URINE AUTO RFX 9 /HPF (0-3)
[2018-01-14 10:55] LABS: LEUKOCYTE ESTERASE UR AUTO RFX 1+ (NEGATIVE)
[2018-01-14] MEDS: KETOROLAC 30 MG/ML VIAL (J1885) IV (10:58)
[2018-01-14 11:12] LABS: ANION GAP 5 MEQ/L (8-16); BLOOD UREA NITROGEN 11 MG/DL (7-18); CALCIUM LEVEL 8.4 MG/DL (8.5-10.1); CARBON DIOXIDE LEVEL 32 MEQ/L (21-32); CHLORIDE LEVEL 105 MEQ/L (98-107); CREATININE FOR GFR 0.65 MG/DL (0.55-1.30); GLOMERULAR FILTRATION RATE > 60.0 (>60); GLUCOSE, FASTING 92 MG/DL (70-100); POTASSIUM SERUM 3.9 MEQ/L (3.5-5.1); SODIUM LEVEL 142 MEQ/L (136-145)
== END 2018-01-14 12:26 | disposition home or self-care (01) ==
LOC: M ED 09:44
DX: N30.90 Cystitis, unspecified without hematuria (principal); A49.02 Methicillin resistant Staphylococcus aureus infection, unspecified site; J45.909 Unspecified asthma, uncomplicated; M79.7 Fibromyalgia; Z79.891 Long term (current) use of opiate analgesic
CPT/HCPCS: J2405

== ENCOUNTER 2018-02-03 01:48 | Emergency (ER) | payer OTHER ==
[2018-02-03 06:21] LABS: BASO % 0.2 % (0.0-1.0); EOS # 0.3 10^3/uL (0.0-0.50); EOS % 6.6 % (0.0-3.0); HEMOGLOBIN 12.9 g/dl (12.0-15.5); IMMATURE GRANULOCYTE % 0.2 % (0-3.0); LYMPH # 1.8 10^3/uL (1.5-4.5); LYMPH % 38.2 % (24.0-44.0); MEAN CORPUSCULAR HEMOGLOBIN 27.5 pg (27.0-33.0); MEAN CORPUSCULAR HGB CONC 33.1 g/dl (32.0-36.5); MEAN CORPUSCULAR VOLUME 83.2 fl (80.0-96.0); MONO # 0.4 10^3/uL (0.0-0.8); MONO % 9.4 % (0.0-5.0); NEUTROPHILS # 2.1 10^3/uL (1.8-7.7); NEUTROPHILS % 45.4 % (36.0-66.0); PLATELET COUNT, AUTOMATED 286 10^3/uL (150-450); RED BLOOD COUNT 4.69 10^6/uL (4.00-5.40); RED CELL DISTRIBUTION WIDTH 12.6 % (11.5-14.5); WHITE BLOOD COUNT 4.6 10^3/uL (4.0-10.0)
[2018-02-03 06:44] LABS: CONTROL LINE HCG INT CTR LINE PRESENT; HCG, SERUM QUALITATIVE NEGATIVE (NEGATIVE)
[2018-02-03 06:51] LABS: ALBUMIN 3.3 GM/DL (3.2-5.2); ALKALINE PHOSPHATASE 152 U/L (45-117); ALT/SGPT 133 U/L (12-78); ANION GAP 5 MEQ/L (8-16); AST/SGOT 127 U/L (7-37); BILIRUBIN,DIRECT 0.3 MG/DL (0.0-0.2); BILIRUBIN,TOTAL 0.6 MG/DL (0.2-1.0); BLOOD UREA NITROGEN 11 MG/DL (7-18); CALCIUM LEVEL 8.7 MG/DL (8.5-10.1); CARBON DIOXIDE LEVEL 29 MEQ/L (21-32); CHLORIDE LEVEL 108 MEQ/L (98-107); CREATININE FOR GFR 0.61 MG/DL (0.55-1.30); GLOMERULAR FILTRATION RATE > 60.0 (>60); GLUCOSE, FASTING 120 MG/DL (70-100); LIPASE 66 U/L (73-393); POTASSIUM SERUM 4.7 MEQ/L (3.5-5.1); SODIUM LEVEL 142 MEQ/L (136-145); TOTAL PROTEIN 6.6 GM/DL (6.4-8.2)
[2018-02-03] MEDS: ONDANSETRON 4MG/2ML VIAL (J2405) IV (07:12)
[2018-02-03] MEDS: GI COCKTAIL 50ML BTL(HYOSCYAMINE/MAALOX/LIDOCAINE VISCOUS)(1:3:1) PO (07:12)
[2018-02-03] MEDS: FAMOTIDINE IV BAG 20 MG in APPROPRIATE DILUENT 1 EA IV (07:12)
== END 2018-02-03 07:36 | disposition home or self-care (01) ==
LOC: M ED 01:48
DX: K29.00 Acute gastritis without bleeding (principal); K52.9 Noninfective gastroenteritis and colitis, unspecified; R94.5 Abnormal results of liver function studies; I10 Essential (primary) hypertension; J45.909 Unspecified asthma, uncomplicated; M79.7 Fibromyalgia; K21.9 Gastro-esophageal reflux disease without esophagitis; D68.59 Other primary thrombophilia; F31.9 Bipolar disorder, unspecified; Z79.899 Other long term (current) drug therapy; Z79.891 Long term (current) use of opiate analgesic
CPT/HCPCS: J2405

== ENCOUNTER → 2018-02-12 | Outpatient (REF) | payer OTHER ==
[2018-02-12 12:22] LABS: BASO % 0.4 % (0.0-1.0); EOS # 0.3 10^3/uL (0.0-0.50); EOS % 6.1 % (0.0-3.0); HEMATOCRIT 38.1 % (36.0-47.0); HEMOGLOBIN 12.4 g/dl (12.0-15.5); IMMATURE GRANULOCYTE % 0.2 % (0-3.0); LYMPH # 1.7 10^3/uL (1.5-4.5); LYMPH % 37.2 % (24.0-44.0); MEAN CORPUSCULAR HEMOGLOBIN 27.5 pg (27.0-33.0); MEAN CORPUSCULAR HGB CONC 32.5 g/dl (32.0-36.5); MEAN CORPUSCULAR VOLUME 84.5 fl (80.0-96.0); MONO # 0.4 10^3/uL (0.0-0.8); MONO % 8.7 % (0.0-5.0); NEUTROPHILS # 2.2 10^3/uL (1.8-7.7); NEUTROPHILS % 47.4 % (36.0-66.0); PLATELET COUNT, AUTOMATED 233 10^3/uL (150-450); RED BLOOD COUNT 4.51 10^6/uL (4.00-5.40); RED CELL DISTRIBUTION WIDTH 12.8 % (11.5-14.5); WHITE BLOOD COUNT 4.6 10^3/uL (4.0-10.0)
[2018-02-12 12:43] LABS: ERYTHROCYTE SEDIMENTATION RATE 4 mm/hr (0-20)
[2018-02-12 13:27] LABS: ALBUMIN 3.4 GM/DL (3.2-5.2); ALBUMIN/GLOBULIN RATIO 1.06 (1.00-1.93); ALKALINE PHOSPHATASE 142 U/L (45-117); ALT/SGPT 106 U/L (12-78); AST/SGOT 118 U/L (7-37); BILIRUBIN,DIRECT 0.4 MG/DL (0.0-0.2); BILIRUBIN,TOTAL 0.6 MG/DL (0.2-1.0); C REACTIVE PROTEIN QUANTITATIV < 0.30 MG/DL (0.00-0.30); IMMUNOGLOBULIN G 1220 MG/DL (681-1648); IMMUNOGLOBULIN M 190 MG/DL (40-230); IRON (FE) 189 UG/DL (50-170); TOTAL IRON BINDING CAPACITY 310 UG/DL (250-450); TOTAL PROTEIN 6.6 GM/DL (6.4-8.2)
[2018-02-13 10:17] LABS: HIV 1&2 SCREEN CENTAUR NEGATIVE (NEGATIVE)
[2018-02-17 00:06] LABS: ANA (HEP2) Negative (.); HEPATITIS A IgG TOTAL Negative (Negative); HEPATITIS B SURF AB QUANT <3.1 mIU/mL (Immunity>9.9); HEPATITIS C QUANTITATION 5834310 IU/mL (.); HEPATITIS C VIRUS GENOTYPE 1a (.); LIVER-KIDNEY MICROSOMAL ABY 0.9 Units (0.0-20.0)
== END ==
LOC: M SFHCPLAZ 09:30
DX: R94.5 Abnormal results of liver function studies (principal); R05 Cough; L98.9 Disorder of the skin and subcutaneous tissue, unspecified; B99.9 Unspecified infectious disease

== ENCOUNTER 2018-02-25 16:39 | Inpatient (IN) | payer OTHER ==
[2018-02-25 17:30] LABS: CALCIUM OXALATE CRYSTALS RFX SMALL; KETONE, URINE AUTO RFX NEGATIVE (NEGATIVE); LEUKOCYTE ESTERASE UR AUTO RFX NEGATIVE (NEGATIVE); MUCUS, URINE RFX SMALL (NEGATIVE); NITRITE, URINE AUTO RFX NEGATIVE (NEGATIVE); RBC, URINE AUTO RFX 2 /HPF (0-3); SQUAM EPITHELIAL CELL UR AURFX 5 /HPF (0-6); WBC, URINE AUTO RFX 3 /HPF (0-3)
[2018-02-25 21:11] LABS: BASO % 0.5 % (0.0-1.0); EOS # 0.4 10^3/uL (0.0-0.50); EOS % 6.2 % (0.0-3.0); HEMATOCRIT 42.1 % (36.0-47.0); HEMOGLOBIN 13.7 g/dl (12.0-15.5); IMMATURE GRANULOCYTE % 0.4 % (0-3.0); LYMPH # 2.4 10^3/uL (1.5-4.5); MEAN CORPUSCULAR HGB CONC 32.5 g/dl (32.0-36.5); MEAN CORPUSCULAR VOLUME 85.9 fl (80.0-96.0); MONO # 0.6 10^3/uL (0.0-0.8); MONO % 10.6 % (0.0-5.0); NEUTROPHILS # 2.3 10^3/uL (1.8-7.7); NEUTROPHILS % 40.3 % (36.0-66.0); PLATELET COUNT, AUTOMATED 263 10^3/uL (150-450); RED CELL DISTRIBUTION WIDTH 14.6 % (11.5-14.5); WHITE BLOOD COUNT 5.7 10^3/uL (4.0-10.0)
[2018-02-25 21:22] LABS: INR 0.97; PARTIAL THROMBOPLASTIN TIME 37.4 SECONDS (25.4-37.6)
[2018-02-25 21:39] LABS: AMMONIA 37 uMOL/L (<32)
[2018-02-25 21:39] LABS: ALBUMIN 3.6 GM/DL (3.2-5.2); ALBUMIN/GLOBULIN RATIO 0.95 (1.00-1.93); ALKALINE PHOSPHATASE 192 U/L (45-117); ALT/SGPT 389 U/L (12-78); AMYLASE 45 U/L (25-115); ANION GAP 11 MEQ/L (8-16); AST/SGOT 694 U/L (7-37); BILIRUBIN,DIRECT 8.6 MG/DL (0.0-0.2); BILIRUBIN,TOTAL 9.9 MG/DL (0.2-1.0); BLOOD UREA NITROGEN 10 MG/DL (7-18); CALCIUM LEVEL 8.9 MG/DL (8.5-10.1); CARBON DIOXIDE LEVEL 27 MEQ/L (21-32); CHLORIDE LEVEL 104 MEQ/L (98-107); CREATININE FOR GFR 0.71 MG/DL (0.55-1.30); GLOMERULAR FILTRATION RATE > 60.0 (>60); GLUCOSE, FASTING 83 MG/DL (70-100); LIPASE 81 U/L (73-393); POTASSIUM SERUM 3.9 MEQ/L (3.5-5.1); SODIUM LEVEL 142 MEQ/L (136-145); TOTAL PROTEIN 7.4 GM/DL (6.4-8.2)
[2018-02-25] MEDS ORDERED: BISACODYL 10 MG SUPP PR (23:30)
[2018-02-25] MEDS ORDERED: BISACODYL 5 MG TAB PO (23:30)
[2018-02-25] MEDS ORDERED: POLYVINYL ALCOHOL OPHTH SOLN 15 ML(LIQUITEARS) OU (23:45)
[2018-02-25] MEDS ORDERED: ALBUTEROL 90 MCG/ACT 8GM HFA INHALER INH (23:45)
[2018-02-26] MEDS: NS 1,000 ML IV ×3 (00:17→16:26)
[2018-02-26] MEDS: HYDROMORPHONE HCL 0.5 MG/ 0.5 ML SYRINGE (J1170 PER 1) IV ×6 (00:17→21:49)
[2018-02-26] MEDS: D5W IV ×3 (00:18→06:25)
[2018-02-26] MEDS: ACETYLCYSTEINE IV ×3 (00:18→06:25)
[2018-02-26] MEDS: diphenhydrAMINE 25 MG CAP PO ×3 (00:50→18:47)
[2018-02-26] MEDS: ONDANSETRON 4 MG ORAL DISINTEGRATING TAB (Q0162 PER 1MG) PO (02:10)
[2018-02-26 07:48] LABS: HEMOGLOBIN 13.8 g/dl (12.0-15.5); MEAN CORPUSCULAR HEMOGLOBIN 27.9 pg (27.0-33.0); MEAN CORPUSCULAR HGB CONC 32.9 g/dl (32.0-36.5); MEAN CORPUSCULAR VOLUME 84.8 fl (80.0-96.0); PLATELET COUNT, AUTOMATED 240 10^3/uL (150-450); RED BLOOD COUNT 4.95 10^6/uL (4.00-5.40); RED CELL DISTRIBUTION WIDTH 14.5 % (11.5-14.5); WHITE BLOOD COUNT 4.5 10^3/uL (4.0-10.0)
[2018-02-26 08:05] LABS: INR 0.98; PROTHROMBIN TIME 13.1 SECONDS (12.1-14.4)
[2018-02-26 08:17] LABS: ALBUMIN 3.2 GM/DL (3.2-5.2); ALBUMIN/GLOBULIN RATIO 0.86 (1.00-1.93); ALKALINE PHOSPHATASE 180 U/L (45-117); ALT/SGPT 368 U/L (12-78); ANION GAP 11 MEQ/L (8-16); AST/SGOT 599 U/L (7-37); BILIRUBIN,TOTAL 9.2 MG/DL (0.2-1.0); BLOOD UREA NITROGEN 7 MG/DL (7-18); CALCIUM LEVEL 8.9 MG/DL (8.5-10.1); CARBON DIOXIDE LEVEL 28 MEQ/L (21-32); CHLORIDE LEVEL 102 MEQ/L (98-107); CREATININE FOR GFR 0.66 MG/DL (0.55-1.30); GLOMERULAR FILTRATION RATE > 60.0 (>60); GLUCOSE, FASTING 97 MG/DL (70-100); POTASSIUM SERUM 3.5 MEQ/L (3.5-5.1); SODIUM LEVEL 141 MEQ/L (136-145); TOTAL PROTEIN 6.9 GM/DL (6.4-8.2)
[2018-02-26] MEDS: GABAPENTIN 300 MG CAP PO ×4 (08:37→20:38)
[2018-02-26] MEDS: CYANOCOBALAMIN 500 MCG TAB PO (08:37)
[2018-02-26] MEDS: MULTIVITAMINS/MINERALS THERAP 1 TAB PO (08:40)
[2018-02-26] MEDS: SENOKOT S TAB PO ×2 (08:40→20:41)
[2018-02-26] MEDS: BUPRENORPHINE/NALOXONE 8-2MG SUBLINGUAL TABLET(SUBOXONE) SL (08:41)
[2018-02-26] MEDS: VENLAFAXINE **XR** 75MG CAPSULE PO (08:41)
[2018-02-26] MEDS: cloNIDine 0.1 MG TAB PO ×3 (08:41→20:41)
[2018-02-26] MEDS: GASTROGRAFIN SOLUTION 30ML PO ×2 (11:40→12:10)
[2018-02-26] MEDS ORDERED: ISOVUE-370 76% 100ML VIAL (Q9967) As Ordered (12:56)
[2018-02-26 16:06] LABS: AMPHETAMINES LEVEL URINE NEGATIVE (NEGATIVE); BARBITURATES URINE NEGATIVE (NEGATIVE); BENZODIAZEPINES URINE NEGATIVE (NEGATIVE); CANNABINOIDS URINE NEGATIVE (NEGATIVE); COCAINE METABOLITE URINE NEGATIVE (NEGATIVE); METHADONE URINE NEGATIVE (NEGATIVE); OPIATES URINE NEGATIVE (NEGATIVE); PHENCYCLIDINE URINE NEGATIVE (NEGATIVE)
[2018-02-27] MEDS: NS 1,000 ML IV ×2 (00:17→08:58)
[2018-02-27] MEDS: diphenhydrAMINE 25 MG CAP PO (01:05)
[2018-02-27] MEDS: HYDROMORPHONE HCL 0.5 MG/ 0.5 ML SYRINGE (J1170 PER 1) IV ×5 (01:06→21:50)
[2018-02-27 06:00] LABS: HEMATOCRIT 38.1 % (36.0-47.0); HEMOGLOBIN 12.3 g/dl (12.0-15.5); MEAN CORPUSCULAR HEMOGLOBIN 27.5 pg (27.0-33.0); MEAN CORPUSCULAR HGB CONC 32.3 g/dl (32.0-36.5); MEAN CORPUSCULAR VOLUME 85.2 fl (80.0-96.0); PLATELET COUNT, AUTOMATED 225 10^3/uL (150-450); RED BLOOD COUNT 4.47 10^6/uL (4.00-5.40); RED CELL DISTRIBUTION WIDTH 14.6 % (11.5-14.5); WHITE BLOOD COUNT 4.1 10^3/uL (4.0-10.0)
[2018-02-27 06:15] LABS: INR 1.01; PROTHROMBIN TIME 13.4 SECONDS (12.1-14.4)
[2018-02-27 06:28] LABS: ALBUMIN 3.1 GM/DL (3.2-5.2); ALBUMIN/GLOBULIN RATIO 0.91 (1.00-1.93); ALKALINE PHOSPHATASE 153 U/L (45-117); ALT/SGPT 400 U/L (12-78); ANION GAP 9 MEQ/L (8-16); AST/SGOT 715 U/L (7-37); BLOOD UREA NITROGEN 8 MG/DL (7-18); CALCIUM LEVEL 8.6 MG/DL (8.5-10.1); CARBON DIOXIDE LEVEL 26 MEQ/L (21-32); CHLORIDE LEVEL 109 MEQ/L (98-107); CREATININE FOR GFR 0.62 MG/DL (0.55-1.30); GLOMERULAR FILTRATION RATE > 60.0 (>60); GLUCOSE, FASTING 83 MG/DL (70-100); POTASSIUM SERUM 4.5 MEQ/L (3.5-5.1); SODIUM LEVEL 144 MEQ/L (136-145); TOTAL PROTEIN 6.5 GM/DL (6.4-8.2)
[2018-02-27] MEDS: VENLAFAXINE **XR** 75MG CAPSULE PO (08:37)
[2018-02-27] MEDS: SENOKOT S TAB PO ×2 (08:37→21:31)
[2018-02-27] MEDS: GABAPENTIN 300 MG CAP PO ×4 (08:37→21:31)
[2018-02-27] MEDS: BUPRENORPHINE/NALOXONE 8-2MG SUBLINGUAL TABLET(SUBOXONE) SL (08:38)
[2018-02-27] MEDS: cloNIDine 0.1 MG TAB PO ×3 (08:38→21:30)
[2018-02-27] MEDS: MULTIVITAMINS/MINERALS THERAP 1 TAB PO (08:39)
[2018-02-27] MEDS: CYANOCOBALAMIN 500 MCG TAB PO (08:39)
[2018-02-27] MEDS ORDERED: CHOLESTYRAMINE 4 GM PWD PKT PO (09:00)
[2018-02-27 13:12] LABS: HEPATITIS C VIRUS ABY INDEX > 11.0 INDEX (<0.8)
[2018-02-27] MEDS: CHOLESTYRAMINE 4 GM PWD PKT PO (18:34)
[2018-02-28] MEDS: HYDROMORPHONE HCL 0.5 MG/ 0.5 ML SYRINGE (J1170 PER 1) IV ×4 (01:17→19:40)
[2018-02-28] MEDS: CHOLESTYRAMINE 4 GM PWD PKT PO ×2 (05:34→17:07)
[2018-02-28 06:00] LABS: HEMATOCRIT 38.2 % (36.0-47.0); HEMOGLOBIN 12.5 g/dl (12.0-15.5); MEAN CORPUSCULAR HEMOGLOBIN 27.4 pg (27.0-33.0); MEAN CORPUSCULAR HGB CONC 32.7 g/dl (32.0-36.5); MEAN CORPUSCULAR VOLUME 83.6 fl (80.0-96.0); PLATELET COUNT, AUTOMATED 237 10^3/uL (150-450); RED BLOOD COUNT 4.57 10^6/uL (4.00-5.40); RED CELL DISTRIBUTION WIDTH 14.6 % (11.5-14.5); WHITE BLOOD COUNT 4.6 10^3/uL (4.0-10.0)
[2018-02-28 06:08] LABS: ALBUMIN 3.2 GM/DL (3.2-5.2); ALBUMIN/GLOBULIN RATIO 0.91 (1.00-1.93); ALKALINE PHOSPHATASE 161 U/L (45-117); ALT/SGPT 422 U/L (12-78); ANION GAP 6 MEQ/L (8-16); AST/SGOT 667 U/L (7-37); BILIRUBIN,TOTAL 8.5 MG/DL (0.2-1.0); BLOOD UREA NITROGEN 9 MG/DL (7-18); CALCIUM LEVEL 8.6 MG/DL (8.5-10.1); CARBON DIOXIDE LEVEL 24 MEQ/L (21-32); CHLORIDE LEVEL 109 MEQ/L (98-107); CREATININE FOR GFR 0.61 MG/DL (0.55-1.30); GLOMERULAR FILTRATION RATE > 60.0 (>60); GLUCOSE, FASTING 83 MG/DL (70-100); POTASSIUM SERUM 4.1 MEQ/L (3.5-5.1); SODIUM LEVEL 139 MEQ/L (136-145); TOTAL PROTEIN 6.7 GM/DL (6.4-8.2)
[2018-02-28 06:12] LABS: INR 0.97
[2018-02-28] MEDS: CYANOCOBALAMIN 500 MCG TAB PO (09:26)
[2018-02-28] MEDS: SENOKOT S TAB PO ×2 (09:26→21:55)
[2018-02-28] MEDS: VENLAFAXINE **XR** 75MG CAPSULE PO (09:28)
[2018-02-28] MEDS: cloNIDine 0.1 MG TAB PO ×3 (09:28→21:56)
[2018-02-28] MEDS: GABAPENTIN 300 MG CAP PO ×4 (09:28→21:55)
[2018-02-28] MEDS: MULTIVITAMINS/MINERALS THERAP 1 TAB PO (09:29)
[2018-02-28] MEDS: BUPRENORPHINE/NALOXONE 8-2MG SUBLINGUAL TABLET(SUBOXONE) SL (09:29)
[2018-03-01] MEDS: HYDROMORPHONE HCL 0.5 MG/ 0.5 ML SYRINGE (J1170 PER 1) IV ×4 (01:37→20:33)
[2018-03-01] MEDS: CHOLESTYRAMINE 4 GM PWD PKT PO ×3 (05:22→18:29)
[2018-03-01 05:49] LABS: HEMATOCRIT 37.3 % (36.0-47.0); HEMOGLOBIN 12.2 g/dl (12.0-15.5); MEAN CORPUSCULAR HEMOGLOBIN 27.7 pg (27.0-33.0); MEAN CORPUSCULAR HGB CONC 32.7 g/dl (32.0-36.5); MEAN CORPUSCULAR VOLUME 84.6 fl (80.0-96.0); PLATELET COUNT, AUTOMATED 234 10^3/uL (150-450); RED BLOOD COUNT 4.41 10^6/uL (4.00-5.40); RED CELL DISTRIBUTION WIDTH 14.8 % (11.5-14.5); WHITE BLOOD COUNT 4.8 10^3/uL (4.0-10.0)
[2018-03-01 06:08] LABS: ALBUMIN 3.1 GM/DL (3.2-5.2); ALBUMIN/GLOBULIN RATIO 0.82 (1.00-1.93); ALKALINE PHOSPHATASE 166 U/L (45-117); ALT/SGPT 462 U/L (12-78); ANION GAP 7 MEQ/L (8-16); AST/SGOT 628 U/L (7-37); BILIRUBIN,TOTAL 6.9 MG/DL (0.2-1.0); BLOOD UREA NITROGEN 11 MG/DL (7-18); CALCIUM LEVEL 8.5 MG/DL (8.5-10.1); CARBON DIOXIDE LEVEL 27 MEQ/L (21-32); CHLORIDE LEVEL 107 MEQ/L (98-107); CREATININE FOR GFR 0.59 MG/DL (0.55-1.30); GLOMERULAR FILTRATION RATE > 60.0 (>60); GLUCOSE, FASTING 106 MG/DL (70-100); SODIUM LEVEL 141 MEQ/L (136-145); TOTAL PROTEIN 6.9 GM/DL (6.4-8.2)
[2018-03-01 06:10] LABS: INR 0.96; PROTHROMBIN TIME 12.8 SECONDS (12.1-14.4)
[2018-03-01] MEDS: BUPRENORPHINE/NALOXONE 8-2MG SUBLINGUAL TABLET(SUBOXONE) SL (08:28)
[2018-03-01] MEDS: GABAPENTIN 300 MG CAP PO ×4 (08:29→20:25)
[2018-03-01] MEDS: CYANOCOBALAMIN 500 MCG TAB PO (08:29)
[2018-03-01] MEDS: VENLAFAXINE **XR** 75MG CAPSULE PO (08:29)
[2018-03-01] MEDS: MULTIVITAMINS/MINERALS THERAP 1 TAB PO (08:29)
[2018-03-01] MEDS: SENOKOT S TAB PO ×2 (08:29→20:25)
[2018-03-01] MEDS: cloNIDine 0.1 MG TAB PO ×3 (08:34→20:25)
[2018-03-02] MEDS: CHOLESTYRAMINE 4 GM PWD PKT PO ×5 (00:19→23:55)
[2018-03-02] MEDS: HYDROMORPHONE HCL 0.5 MG/ 0.5 ML SYRINGE (J1170 PER 1) IV ×4 (02:37→22:00)
[2018-03-02 07:20] LABS: HEMATOCRIT 39.9 % (36.0-47.0); HEMOGLOBIN 12.8 g/dl (12.0-15.5); MEAN CORPUSCULAR HEMOGLOBIN 27.6 pg (27.0-33.0); MEAN CORPUSCULAR HGB CONC 32.1 g/dl (32.0-36.5); PLATELET COUNT, AUTOMATED 254 10^3/uL (150-450); RED BLOOD COUNT 4.64 10^6/uL (4.00-5.40); WHITE BLOOD COUNT 4.7 10^3/uL (4.0-10.0)
[2018-03-02 07:35] LABS: INR 1.01; PROTHROMBIN TIME 13.4 SECONDS (12.1-14.4)
[2018-03-02 07:41] LABS: ALBUMIN 3.2 GM/DL (3.2-5.2); ALBUMIN/GLOBULIN RATIO 0.78 (1.00-1.93); ALKALINE PHOSPHATASE 152 U/L (45-117); ALT/SGPT 466 U/L (12-78); ANION GAP 9 MEQ/L (8-16); AST/SGOT 517 U/L (7-37); BILIRUBIN,TOTAL 6.2 MG/DL (0.2-1.0); BLOOD UREA NITROGEN 10 MG/DL (7-18); CALCIUM LEVEL 8.6 MG/DL (8.5-10.1); CARBON DIOXIDE LEVEL 22 MEQ/L (21-32); CHLORIDE LEVEL 109 MEQ/L (98-107); CREATININE FOR GFR 0.59 MG/DL (0.55-1.30); GLOMERULAR FILTRATION RATE > 60.0 (>60); GLUCOSE, FASTING 132 MG/DL (70-100); POTASSIUM SERUM 4.2 MEQ/L (3.5-5.1); SODIUM LEVEL 140 MEQ/L (136-145); TOTAL PROTEIN 7.3 GM/DL (6.4-8.2)
[2018-03-02] MEDS: VENLAFAXINE **XR** 75MG CAPSULE PO (09:01)
[2018-03-02] MEDS: MULTIVITAMINS/MINERALS THERAP 1 TAB PO (09:02)
[2018-03-02] MEDS: SENOKOT S TAB PO ×2 (09:02→20:36)
[2018-03-02] MEDS: BUPRENORPHINE/NALOXONE 8-2MG SUBLINGUAL TABLET(SUBOXONE) SL (09:02)
[2018-03-02] MEDS: CYANOCOBALAMIN 500 MCG TAB PO (09:02)
[2018-03-02] MEDS: GABAPENTIN 300 MG CAP PO ×4 (09:02→20:36)
[2018-03-02] MEDS: cloNIDine 0.1 MG TAB PO ×3 (09:02→20:36)
[2018-03-02 14:17] LABS: HCV RNA NAA QUALITATIVE Positive (Negative)
[2018-03-03 00:07] LABS: HEPATITIS C QUANTITATION 6869260 IU/mL (.)
[2018-03-03] MEDS: HYDROMORPHONE HCL 0.5 MG/ 0.5 ML SYRINGE (J1170 PER 1) IV ×3 (04:28→23:50)
[2018-03-03] MEDS: CHOLESTYRAMINE 4 GM PWD PKT PO ×4 (05:29→23:50)
[2018-03-03 07:22] LABS: HEMATOCRIT 39.6 % (36.0-47.0); MEAN CORPUSCULAR HEMOGLOBIN 28.3 pg (27.0-33.0); MEAN CORPUSCULAR HGB CONC 32.8 g/dl (32.0-36.5); MEAN CORPUSCULAR VOLUME 86.3 fl (80.0-96.0); PLATELET COUNT, AUTOMATED 259 10^3/uL (150-450); RED BLOOD COUNT 4.59 10^6/uL (4.00-5.40); RED CELL DISTRIBUTION WIDTH 14.9 % (11.5-14.5); WHITE BLOOD COUNT 5.2 10^3/uL (4.0-10.0)
[2018-03-03 07:33] LABS: INR 1.06; PROTHROMBIN TIME 13.9 SECONDS (12.1-14.4)
[2018-03-03 07:59] LABS: ALBUMIN 3.3 GM/DL (3.2-5.2); ALKALINE PHOSPHATASE 162 U/L (45-117); ALT/SGPT 497 U/L (12-78); ANION GAP 7 MEQ/L (8-16); AST/SGOT 497 U/L (7-37); BLOOD UREA NITROGEN 10 MG/DL (7-18); CALCIUM LEVEL 8.6 MG/DL (8.5-10.1); CARBON DIOXIDE LEVEL 24 MEQ/L (21-32); CHLORIDE LEVEL 110 MEQ/L (98-107); CREATININE FOR GFR 0.59 MG/DL (0.55-1.30); GLOMERULAR FILTRATION RATE > 60.0 (>60); GLUCOSE, FASTING 145 MG/DL (70-100); POTASSIUM SERUM 4.2 MEQ/L (3.5-5.1); SODIUM LEVEL 141 MEQ/L (136-145); TOTAL PROTEIN 7.2 GM/DL (6.4-8.2)
[2018-03-03 08:33] LABS: ALBUMIN/GLOBULIN RATIO 1.18 (1.00-1.93)
[2018-03-03] MEDS: SENOKOT S TAB PO ×2 (09:45→21:00)
[2018-03-03] MEDS: GABAPENTIN 300 MG CAP PO ×4 (09:45→21:05)
[2018-03-03] MEDS: VENLAFAXINE **XR** 75MG CAPSULE PO (09:45)
[2018-03-03] MEDS: MULTIVITAMINS/MINERALS THERAP 1 TAB PO (09:45)
[2018-03-03] MEDS: CYANOCOBALAMIN 500 MCG TAB PO (09:46)
[2018-03-03] MEDS: cloNIDine 0.1 MG TAB PO ×3 (09:46→21:04)
[2018-03-03] MEDS: BUPRENORPHINE/NALOXONE 8-2MG SUBLINGUAL TABLET(SUBOXONE) SL (09:47)
[2018-03-03] MEDS: ONDANSETRON 4 MG ORAL DISINTEGRATING TAB (Q0162 PER 1MG) PO (18:03)
[2018-03-03] MEDS: IBUPROFEN 400 MG TAB PO (21:02)
[2018-03-04] MEDS: IBUPROFEN 400 MG TAB PO ×2 (06:35→11:50)
[2018-03-04] MEDS: CHOLESTYRAMINE 4 GM PWD PKT PO ×2 (06:35→12:32)
[2018-03-04 07:28] LABS: HEMATOCRIT 41.5 % (36.0-47.0); HEMOGLOBIN 13.4 g/dl (12.0-15.5); MEAN CORPUSCULAR HEMOGLOBIN 27.7 pg (27.0-33.0); MEAN CORPUSCULAR HGB CONC 32.3 g/dl (32.0-36.5); MEAN CORPUSCULAR VOLUME 85.7 fl (80.0-96.0); PLATELET COUNT, AUTOMATED 317 10^3/uL (150-450); RED BLOOD COUNT 4.84 10^6/uL (4.00-5.40); WHITE BLOOD COUNT 6.3 10^3/uL (4.0-10.0)
[2018-03-04 07:45] LABS: INR 1.11; PROTHROMBIN TIME 14.5 SECONDS (12.1-14.4)
[2018-03-04 08:03] LABS: ALBUMIN 3.3 GM/DL (3.2-5.2); ALKALINE PHOSPHATASE 159 U/L (45-117); ALT/SGPT 470 U/L (12-78); ANION GAP 5 MEQ/L (8-16); AST/SGOT 376 U/L (7-37); BILIRUBIN,TOTAL 4.5 MG/DL (0.2-1.0); BLOOD UREA NITROGEN 9 MG/DL (7-18); CALCIUM LEVEL 8.6 MG/DL (8.5-10.1); CARBON DIOXIDE LEVEL 25 MEQ/L (21-32); CHLORIDE LEVEL 109 MEQ/L (98-107); CREATININE FOR GFR 0.55 MG/DL (0.55-1.30); GLOMERULAR FILTRATION RATE > 60.0 (>60); GLUCOSE, FASTING 125 MG/DL (70-100); POTASSIUM SERUM 4.1 MEQ/L (3.5-5.1); SODIUM LEVEL 139 MEQ/L (136-145); TOTAL PROTEIN 7.4 GM/DL (6.4-8.2)
[2018-03-04] MEDS: SENOKOT S TAB PO (09:00)
[2018-03-04] MEDS: MULTIVITAMINS/MINERALS THERAP 1 TAB PO (09:29)
[2018-03-04] MEDS: GABAPENTIN 300 MG CAP PO ×2 (09:29→12:32)
[2018-03-04] MEDS: CYANOCOBALAMIN 500 MCG TAB PO (09:29)
[2018-03-04] MEDS: VENLAFAXINE **XR** 75MG CAPSULE PO (09:29)
[2018-03-04] MEDS: cloNIDine 0.1 MG TAB PO (09:30)
[2018-03-04] MEDS: BUPRENORPHINE/NALOXONE 8-2MG SUBLINGUAL TABLET(SUBOXONE) SL (11:50)
== END 2018-03-04 15:05 | disposition home or self-care (01) ==
LOC: M MS5PR 02-26 14:59 → M ED 16:39 → M ED INP 23:12
DX: B17.10 Acute hepatitis C without hepatic coma (principal); F32.9 Major depressive disorder, single episode, unspecified; F41.0 Panic disorder [episodic paroxysmal anxiety]; J30.9 Allergic rhinitis, unspecified; G43.909 Migraine, unspecified, not intractable, without status migrainosus; Z79.891 Long term (current) use of opiate analgesic; Z79.899 Other long term (current) drug therapy; Z98.51 Tubal ligation status; Z90.49 Acquired absence of other specified parts of digestive tract; Z90.711 Acquired absence of uterus with remaining cervical stump; Z87.440 Personal history of urinary (tract) infections; Z87.442 Personal history of urinary calculi; Z86.14 Personal history of Methicillin resistant Staphylococcus aureus infection; Z88.8 Allergy status to other drugs, medicaments and biological substances

== ENCOUNTER → 2018-03-16 | Outpatient (REF) | payer OTHER ==
[2018-03-16 16:07] LABS: BASO % 0.3 % (0.0-1.0); EOS # 0.4 10^3/uL (0.0-0.50); EOS % 5.7 % (0.0-3.0); HEMATOCRIT 36.2 % (36.0-47.0); IMMATURE GRANULOCYTE % 0.7 % (0-3.0); LYMPH # 2.9 10^3/uL (1.5-4.5); LYMPH % 39.3 % (24.0-44.0); MEAN CORPUSCULAR HEMOGLOBIN 28.2 pg (27.0-33.0); MEAN CORPUSCULAR HGB CONC 33.1 g/dl (32.0-36.5); MONO # 0.7 10^3/uL (0.0-0.8); MONO % 8.7 % (0.0-5.0); NEUTROPHILS # 3.4 10^3/uL (1.8-7.7); NEUTROPHILS % 45.3 % (36.0-66.0); PLATELET COUNT, AUTOMATED 234 10^3/uL (150-450); RED BLOOD COUNT 4.26 10^6/uL (4.00-5.40); RED CELL DISTRIBUTION WIDTH 14.4 % (11.5-14.5); WHITE BLOOD COUNT 7.5 10^3/uL (4.0-10.0)
[2018-03-16 16:30] LABS: ALBUMIN 3.3 GM/DL (3.2-5.2); ALKALINE PHOSPHATASE 134 U/L (45-117); ALT/SGPT 66 U/L (12-78); ANION GAP 6 MEQ/L (8-16); AST/SGOT 34 U/L (7-37); BILIRUBIN,TOTAL 1.2 MG/DL (0.2-1.0); BLOOD UREA NITROGEN 10 MG/DL (7-18); CALCIUM LEVEL 8.5 MG/DL (8.5-10.1); CARBON DIOXIDE LEVEL 31 MEQ/L (21-32); CHLORIDE LEVEL 106 MEQ/L (98-107); CREATININE FOR GFR 0.66 MG/DL (0.55-1.30); GLOMERULAR FILTRATION RATE > 60.0 (>60); GLUCOSE, FASTING 73 MG/DL (70-100); POTASSIUM SERUM 4.3 MEQ/L (3.5-5.1); SODIUM LEVEL 143 MEQ/L (136-145); TOTAL PROTEIN 6.6 GM/DL (6.4-8.2)
== END ==
LOC: M SFHCPLAZ 13:41
DX: B19.20 Unspecified viral hepatitis C without hepatic coma (principal)

== ENCOUNTER → 2018-03-27 | Outpatient (REF) | payer OTHER ==
[2018-03-27 20:08] LABS: INFLUENZA A AMPLIFICATION NEGATIVE (NEGATIVE); INFLUENZA B AMPLIFICATION NEGATIVE (NEGATIVE)
== END ==
LOC: M LAB REF 19:08
DX: J11.1 Influenza due to unidentified influenza virus with other respiratory manifestations (principal)

== ENCOUNTER → 2018-04-09 | Outpatient (REF) | payer OTHER ==
[2018-04-09 17:14] LABS: BASO % 0.4 % (0.0-1.0); EOS # 0.4 10^3/uL (0.0-0.50); HEMATOCRIT 38.3 % (36.0-47.0); HEMOGLOBIN 13.2 g/dl (12.0-15.5); IMMATURE GRANULOCYTE % 0.3 % (0-3.0); LYMPH % 42.7 % (24.0-44.0); MEAN CORPUSCULAR HEMOGLOBIN 28.7 pg (27.0-33.0); MEAN CORPUSCULAR HGB CONC 34.5 g/dl (32.0-36.5); MEAN CORPUSCULAR VOLUME 83.3 fl (80.0-96.0); MONO # 0.5 10^3/uL (0.0-0.8); NEUTROPHILS # 3.1 10^3/uL (1.8-7.7); NEUTROPHILS % 43.6 % (36.0-66.0); PLATELET COUNT, AUTOMATED 257 10^3/uL (150-450); RED CELL DISTRIBUTION WIDTH 14.9 % (11.5-14.5)
[2018-04-09 18:02] LABS: ALBUMIN 4.1 GM/DL (3.2-5.2); ALBUMIN/GLOBULIN RATIO 1.05 (1.00-1.93); ALKALINE PHOSPHATASE 152 U/L (45-117); ALT/SGPT 61 U/L (12-78); ANION GAP 7 MEQ/L (8-16); AST/SGOT 40 U/L (7-37); BILIRUBIN,TOTAL 0.6 MG/DL (0.2-1.0); BLOOD UREA NITROGEN 15 MG/DL (7-18); CALCIUM LEVEL 8.4 MG/DL (8.5-10.1); CARBON DIOXIDE LEVEL 30 MEQ/L (21-32); CHLORIDE LEVEL 104 MEQ/L (98-107); GLOMERULAR FILTRATION RATE > 60.0 (>60); GLUCOSE, FASTING 86 MG/DL (70-100); POTASSIUM SERUM 4.3 MEQ/L (3.5-5.1); SODIUM LEVEL 141 MEQ/L (136-145)
[2018-04-15 00:11] LABS: HEPATITIS C QUANTITATION 56580 IU/mL (.)
== END ==
LOC: M SFHCPLAZ 15:51
DX: B19.20 Unspecified viral hepatitis C without hepatic coma (principal)
CPT/HCPCS: 80053

== ENCOUNTER 2018-04-19 22:58 | Emergency (ER) | payer OTHER ==
[2018-04-20 00:09] LABS: BASO % 0.3 % (0.0-1.0); EOS # 0.3 10^3/uL (0.0-0.50); EOS % 4.6 % (0.0-3.0); HEMATOCRIT 36.7 % (36.0-47.0); HEMOGLOBIN 12.6 g/dl (12.0-15.5); IMMATURE GRANULOCYTE % 0.2 % (0-3.0); LYMPH # 2.4 10^3/uL (1.5-4.5); LYMPH % 37.9 % (24.0-44.0); MEAN CORPUSCULAR HEMOGLOBIN 29.4 pg (27.0-33.0); MEAN CORPUSCULAR HGB CONC 34.3 g/dl (32.0-36.5); MEAN CORPUSCULAR VOLUME 85.5 fl (80.0-96.0); MONO # 0.6 10^3/uL (0.0-0.8); MONO % 8.9 % (0.0-5.0); NEUTROPHILS % 48.1 % (36.0-66.0); PLATELET COUNT, AUTOMATED 201 10^3/uL (150-450); RED BLOOD COUNT 4.29 10^6/uL (4.00-5.40); RED CELL DISTRIBUTION WIDTH 15.1 % (11.5-14.5); WHITE BLOOD COUNT 6.3 10^3/uL (4.0-10.0)
[2018-04-20 00:16] LABS: APPEARANCE, URINE CLEAR (CLEAR); BACTERIA, URINE AUTO NEGATIVE (NEGATIVE); BILIRUBIN, URINE AUTO NEGATIVE (NEGATIVE); BLOOD, URINE BLOOD NEGATIVE (NEGATIVE); COLOR, URINE YELLOW (YELLOW); GLUCOSE, URINE (UA) AUTO NEGATIVE (NEGATIVE); KETONE, URINE AUTO NEGATIVE (NEGATIVE); LEUKOCYTE ESTERASE, URINE AUTO NEGATIVE (NEGATIVE); MUCUS, URINE SMALL (NEGATIVE); NITRITE, URINE AUTO NEGATIVE (NEGATIVE); PROTEIN, URINE AUTO NEGATIVE (NEGATIVE); RBC, URINE AUTO 1 /HPF (0-3); SPECIFIC GRAVITY URINE AUTO 1.025 (1.002-1.035); SQUAMOUS EPITHELIAL CELL UR AU 3 /HPF (0-6); WBC, URINE AUTO 2 /HPF (0-3)
[2018-04-20] MEDS: NS 1,000 ML IV (00:30)
[2018-04-20 00:41] LABS: CONTROL LINE HCG INT CTR LINE PRESENT; HCG, SERUM QUALITATIVE NEGATIVE (NEGATIVE)
[2018-04-20] MEDS: MORPHINE 2 MG/ML 1ML SYRINGE (J2270) IV (00:47)
[2018-04-20 00:52] LABS: ALBUMIN 3.6 GM/DL (3.2-5.2); ALBUMIN/GLOBULIN RATIO 0.92 (1.00-1.93); ALKALINE PHOSPHATASE 131 U/L (45-117); ALT/SGPT 148 U/L (12-78); ANION GAP 8 MEQ/L (8-16); AST/SGOT 112 U/L (7-37); BILIRUBIN,DIRECT 0.2 MG/DL (0.0-0.2); BILIRUBIN,TOTAL 0.4 MG/DL (0.2-1.0); BLOOD UREA NITROGEN 18 MG/DL (7-18); CALCIUM LEVEL 8.5 MG/DL (8.5-10.1); CARBON DIOXIDE LEVEL 27 MEQ/L (21-32); CHLORIDE LEVEL 105 MEQ/L (98-107); CREATININE FOR GFR 0.73 MG/DL (0.55-1.30); GLOMERULAR FILTRATION RATE > 60.0 (>60); GLUCOSE, FASTING 74 MG/DL (70-100); LIPASE 70 U/L (73-393); POTASSIUM SERUM 4.1 MEQ/L (3.5-5.1); SODIUM LEVEL 140 MEQ/L (136-145); TOTAL PROTEIN 7.5 GM/DL (6.4-8.2)
[2018-04-20] MEDS: KETOROLAC 30 MG/ML VIAL (J1885) IV (01:45)
== END 2018-04-20 02:30 | disposition home or self-care (01) ==
LOC: M ED 22:58
DX: K73.9 Chronic hepatitis, unspecified (principal); R74.0 Nonspecific elevation of levels of transaminase and lactic acid dehydrogenase [LDH]; R11.0 Nausea; K58.9 Irritable bowel syndrome, unspecified; J45.909 Unspecified asthma, uncomplicated; F19.10 Other psychoactive substance abuse, uncomplicated; Z79.899 Other long term (current) drug therapy
CPT/HCPCS: J1885

== ENCOUNTER → 2018-06-03 | Outpatient (CLI) | payer OTHER | LOC: M WUC 10:54 | DX: M25.571 Pain in right ankle and joints of right foot (principal); M25.521 Pain in right elbow | CPT/HCPCS: 73080 ==

== ENCOUNTER 2018-06-05 06:34 | Emergency (ER) | payer OTHER ==
[2018-06-05] MEDS: KETOROLAC 30 MG/ML VIAL (J1885) IV (08:00)
[2018-06-05] MEDS: ONDANSETRON 4MG/2ML VIAL (J2405) IV (08:00)
[2018-06-05 08:04] LABS: BASO % 0.4 % (0.0-1.0); EOS # 0.5 10^3/uL (0.0-0.50); EOS % 6.1 % (0.0-3.0); HEMATOCRIT 39.7 % (36.0-47.0); HEMOGLOBIN 13.8 g/dl (12.0-15.5); IMMATURE GRANULOCYTE % 0.2 % (0-3.0); LYMPH # 3.9 10^3/uL (1.5-4.5); LYMPH % 48.2 % (24.0-44.0); MEAN CORPUSCULAR HEMOGLOBIN 30.5 pg (27.0-33.0); MEAN CORPUSCULAR HGB CONC 34.8 g/dl (32.0-36.5); MEAN CORPUSCULAR VOLUME 87.8 fl (80.0-96.0); MONO # 0.6 10^3/uL (0.0-0.8); MONO % 7.1 % (0.0-5.0); PLATELET COUNT, AUTOMATED 277 10^3/uL (150-450); RED BLOOD COUNT 4.52 10^6/uL (4.00-5.40); RED CELL DISTRIBUTION WIDTH 12.9 % (11.5-14.5)
[2018-06-05 08:15] LABS: APPEARANCE, URINE HAZY (CLEAR); BACTERIA, URINE AUTO NEGATIVE (NEGATIVE); BILIRUBIN, URINE AUTO NEGATIVE (NEGATIVE); BLOOD, URINE BLOOD NEGATIVE (NEGATIVE); COLOR, URINE YELLOW (YELLOW); GLUCOSE, URINE (UA) AUTO NEGATIVE (NEGATIVE); KETONE, URINE AUTO NEGATIVE (NEGATIVE); LEUKOCYTE ESTERASE, URINE AUTO NEGATIVE (NEGATIVE); MUCUS, URINE SMALL (NEGATIVE); NITRITE, URINE AUTO NEGATIVE (NEGATIVE); PROTEIN, URINE AUTO NEGATIVE (NEGATIVE); RBC, URINE AUTO 4 /HPF (0-3); SPECIFIC GRAVITY URINE AUTO 1.027 (1.002-1.035); SQUAMOUS EPITHELIAL CELL UR AU 11 /HPF (0-6); WBC, URINE AUTO 2 /HPF (0-3)
[2018-06-05 08:30] LABS: AMMONIA 22 uMOL/L (<32)
[2018-06-05 08:34] LABS: ALBUMIN 4.1 GM/DL (3.2-5.2); ALBUMIN/GLOBULIN RATIO 1.03 (1.00-1.93); ALKALINE PHOSPHATASE 113 U/L (45-117); ALT/SGPT 22 U/L (12-78); ANION GAP 5 MEQ/L (8-16); AST/SGOT 18 U/L (7-37); BLOOD UREA NITROGEN 13 MG/DL (7-18); CARBON DIOXIDE LEVEL 29 MEQ/L (21-32); CHLORIDE LEVEL 104 MEQ/L (98-107); GAMMA GLUTAMYLTRANSPEPTIDASE 28 U/L (5-55); GLOMERULAR FILTRATION RATE > 60.0 (>60); GLUCOSE, FASTING 96 MG/DL (70-100); SODIUM LEVEL 138 MEQ/L (136-145); TOTAL PROTEIN 8.1 GM/DL (6.4-8.2)
[2018-06-05] MEDS ORDERED: ISOVUE-370 76% 100ML VIAL (Q9967) As Ordered (08:43)
== END 2018-06-05 10:51 | disposition home or self-care (01) ==
LOC: M ED 06:34
DX: R10.84 Generalized abdominal pain (principal); K42.9 Umbilical hernia without obstruction or gangrene; B19.20 Unspecified viral hepatitis C without hepatic coma; M79.7 Fibromyalgia; K58.9 Irritable bowel syndrome, unspecified; Z87.442 Personal history of urinary calculi; Z79.899 Other long term (current) drug therapy
CPT/HCPCS: J2405

== ENCOUNTER 2018-06-11 15:51 | Emergency (ER) | payer OTHER ==
[~2018-06-11] VITALS: Ht 170.2 cm; Wt 106.7 kg
[~2018-06-11 15:51] MED LIST changes: +ARTI99.0 OU; +BACT2CRE TOP; +BENZ5GEL13 EXT; +BUPREN/NALOX; +CLON-412 PO; +DOXY100C37 PO; +DULO1CAP2 PO; -GABA-283 PO; +GABA-845 PO; +IBUP40TA PO; +MACR100C43 PO; +OMEP10CASR PO; +TIZA2CAP PO; -TIZA2CAP3 PO; +TURM500T PO; +TYLE1TAB5 PO; +TYLE500T78 PO; +VENL150C43; +VENL75CA2 PO; +VENL75CA47; +VENTAER INH; +VITA500T3 PO; +VITAOIN EXT; +VITMTA PO; +ZOFR4TAB14 PO; -ZOFR4TAB3 PO
[2018-06-11] MEDS ORDERED: predniSONE 20 MG TAB PO ONE (18:00)
[2018-06-11] MEDS ORDERED: ACETAMINOPHEN 325 MG TAB PO ONE (18:00)
[2018-06-11] MEDS ORDERED: PRED20TA PO (18:04)
[2018-06-11 18:22] VITALS: BP 150/81
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
== END 2018-06-11 18:22 | disposition home or self-care (01) ==
LOC: M ED 15:51
DX: S92.352A Displaced fracture of fifth metatarsal bone, left foot, initial encounter for closed fracture (principal); W17.89XA Other fall from one level to another, initial encounter; Y92.009 Unspecified place in unspecified non-institutional (private) residence as the place of occurrence of the external cause; B19.20 Unspecified viral hepatitis C without hepatic coma; F41.8 Other specified anxiety disorders

== ENCOUNTER 2018-07-06 16:53 | Emergency (ER) | payer OTHER ==
[~2018-07-06] VITALS: Ht 172.7 cm; Wt 84.1 kg
[~2018-07-06 16:53] MED LIST changes: -GABA600T PO; +GABA600T4 PO; -LASI20TA PO; +LASI20TA3 PO; +PRED20TA PO
[2018-07-06] MEDS ORDERED: KETOROLAC 60 MG/2 ML VIAL (J1885) IM ONE (17:45)
[2018-07-06] MEDS ORDERED: diazePAM 5 MG TAB PO ONE (17:45)
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
[2018-07-06] MEDS ORDERED: KETO10TAB PO (18:28)
[2018-07-06] MEDS ORDERED: VALI5TAB PO (18:28)
[2018-07-06 18:32] VITALS: BP 136/76
--- NOTE | 2018-07-06 19:58 | REP ---
THORACIC SPINE, THREE VIEWS: HISTORY: Midback pain. There is no acute fracture or subluxation. The intervertebral discs are normal in height. IMPRESSION:There is no acute fracture or subluxation. Electronically Signed by Kike Ibrahim MD 07/07/2018 08:24 A
== END 2018-07-06 18:57 | disposition home or self-care (01) ==
LOC: M ED 16:53
DX: S06.0X9A Concussion with loss of consciousness of unspecified duration, initial encounter (principal); V49.40XA Driver injured in collision with unspecified motor vehicles in traffic accident, initial encounter
CPT/HCPCS: 70450; 72072; 72125; 96372; 99284; J1885

== ENCOUNTER 2018-07-30 16:01 | Emergency (ER) | payer OTHER ==
[~2018-07-30] VITALS: Ht 170.2 cm; Wt 81.8 kg
[~2018-07-30 16:01] MED LIST changes: +VALI5TAB PO
[2018-07-30] MEDS ORDERED: NALT50TA4 (16:07)
[2018-07-30] MEDS ORDERED: NS 1,000 ML IV ONE (17:15)
[2018-07-30] MEDS ORDERED: cloNIDine 0.1 MG TAB PO ONE (17:15)
[2018-07-30] MEDS ORDERED: PROMETHAZINE INJ 25 MG/ML VIAL (J2550) IV ONE (17:15)
[2018-07-30 17:42] LABS: BASO % 0.3 % (0.0-1.0); EOS # 0.1 10^3/uL (0.0-0.50); EOS % 0.7 % (0.0-3.0); HEMATOCRIT 40.3 % (36.0-47.0); HEMOGLOBIN 14.3 g/dl (12.0-15.5); LYMPH # 1.4 10^3/uL (1.5-4.5); MEAN CORPUSCULAR HGB CONC 35.5 g/dl (32.0-36.5); MEAN CORPUSCULAR VOLUME 84.7 fl (80.0-96.0); MONO # 0.4 10^3/uL (0.0-0.8); MONO % 3.7 % (0.0-5.0); NEUTROPHILS # 7.6 10^3/uL (1.8-7.7); NEUTROPHILS % 80.1 % (36.0-66.0); PLATELET COUNT, AUTOMATED 307 10^3/uL (150-450); RED BLOOD COUNT 4.76 10^6/uL (4.00-5.40); WHITE BLOOD COUNT 9.5 10^3/uL (4.0-10.0)
[2018-07-30 17:57] LABS: BLOOD UREA NITROGEN 11 MG/DL (7-18); CREATININE FOR GFR 0.81 MG/DL (0.55-1.30); GLUCOSE, FASTING 116 MG/DL (70-100)
[2018-07-30 17:58] LABS: CARBON DIOXIDE LEVEL 25 MEQ/L (21-32); CHLORIDE LEVEL 106 MEQ/L (98-107); GLOMERULAR FILTRATION RATE > 60.0 (>60); POTASSIUM SERUM 3.6 MEQ/L (3.5-5.1); SODIUM LEVEL 138 MEQ/L (136-145)
[2018-07-30] MEDS ORDERED: LORazepam 2 MG/ML VIAL (J2060) IV STA (18:11)
[2018-07-30 19:14] VITALS: BP 131/78
[2018-07-30] MEDS ORDERED: PROM50TA4 PO (19:14)
== END 2018-07-30 19:28 | disposition home or self-care (01) ==
LOC: M ED 16:01
DX: F11.23 Opioid dependence with withdrawal (principal); Z72.0 Tobacco use; Z79.899 Other long term (current) drug therapy
CPT/HCPCS: 80048; 85025; 96374; 96375; 99284; J2060

== ENCOUNTER → 2018-09-15 | Outpatient (REF) | payer OTHER ==
[~2018-09-15] MED LIST changes: +CLON0.2T PO; +EFFE150C2 PO; +GABA-843 PO; +MIRA3350 PO; +NALT50TA4; +PREG50CA PO; +PROM50TA4 PO
[2018-09-15 13:19] LABS: BASO % 0.4 % (0.0-1.0); EOS # 0.4 10^3/uL (0.0-0.50); EOS % 5.1 % (0.0-3.0); HEMATOCRIT 43.4 % (36.0-47.0); HEMOGLOBIN 14.8 g/dl (12.0-15.5); LYMPH # 3.3 10^3/uL (1.5-4.5); LYMPH % 42.8 % (24.0-44.0); MEAN CORPUSCULAR HEMOGLOBIN 29.8 pg (27.0-33.0); MEAN CORPUSCULAR HGB CONC 34.1 g/dl (32.0-36.5); MEAN CORPUSCULAR VOLUME 87.3 fl (80.0-96.0); MONO # 0.5 10^3/uL (0.0-0.8); MONO % 5.8 % (0.0-5.0); NEUTROPHILS # 3.6 10^3/uL (1.8-7.7); NEUTROPHILS % 45.6 % (36.0-66.0); PLATELET COUNT, AUTOMATED 288 10^3/uL (150-450); RED BLOOD COUNT 4.97 10^6/uL (4.00-5.40); WHITE BLOOD COUNT 7.8 10^3/uL (4.0-10.0)
[2018-09-15 13:24] LABS: APPEARANCE, URINE HAZY (CLEAR); BACTERIA, URINE AUTO NEGATIVE (NEGATIVE); BILIRUBIN, URINE AUTO NEGATIVE (NEGATIVE); BLOOD, URINE BLOOD NEGATIVE (NEGATIVE); COLOR, URINE YELLOW (YELLOW); GLUCOSE, URINE (UA) AUTO NEGATIVE (NEGATIVE); KETONE, URINE AUTO TRACE mg/dL (NEGATIVE); LEUKOCYTE ESTERASE, URINE AUTO NEGATIVE (NEGATIVE); MUCUS, URINE SMALL (NEGATIVE); NITRITE, URINE AUTO NEGATIVE (NEGATIVE); PROTEIN, URINE AUTO NEGATIVE (NEGATIVE); RBC, URINE AUTO 4 /HPF (0-3); SPECIFIC GRAVITY URINE AUTO 1.026 (1.002-1.035); SQUAMOUS EPITHELIAL CELL UR AU 10 /HPF (0-6); WBC, URINE AUTO 1 /HPF (0-3)
[2018-09-15 14:13] LABS: ERYTHROCYTE SEDIMENTATION RATE 7 mm/hr (0-20)
[2018-09-15 14:18] LABS: ALBUMIN 4.3 GM/DL (3.2-5.2); ALT/SGPT 24 U/L (12-78); BILIRUBIN,TOTAL 0.5 MG/DL (0.2-1.0); BLOOD UREA NITROGEN 15 MG/DL (7-18); C REACTIVE PROTEIN QUANTITATIV < 0.30 MG/DL (0.00-0.30); CALCIUM LEVEL 8.3 MG/DL (8.5-10.1); CARBON DIOXIDE LEVEL 27 MEQ/L (21-32); CHLORIDE LEVEL 107 MEQ/L (98-107); CREATININE FOR GFR 0.64 MG/DL (0.55-1.30); GLOMERULAR FILTRATION RATE > 60.0 (>60); GLUCOSE, FASTING 85 MG/DL (70-100); POTASSIUM SERUM 4.2 MEQ/L (3.5-5.1); SODIUM LEVEL 140 MEQ/L (136-145); TOTAL PROTEIN 7.8 GM/DL (6.4-8.2)
[2018-09-15 14:21] LABS: MONO REFLEX EBV COMP NEGATIVE (NEGATIVE)
[2018-09-16 10:53] LABS: HIV 1&2 SCREEN CENTAUR NEGATIVE (NEGATIVE)
[2018-09-17 14:21] LABS: EBV AB TO NUCLEAR ANTIGEN >600.0 U/mL (0.0-17.9); EBV VIRAL CAPSID AG IgG 92.4 U/mL (0.0-17.9); EBV VIRAL CAPSID AG IgM <36.0 U/mL (0.0-35.9); HEPATITIS C QUANTITATION HCV Not Detected IU/mL (.)
== END ==
LOC: M SFHCPLAZ 10:34
PROVIDERS: ATTEND Internal Medicine Infectious Disease
DX: B18.2 Chronic viral hepatitis C (principal); R50.9 Fever, unspecified

== ENCOUNTER 2018-09-19 00:43 | Emergency (ER) | payer OTHER ==
[~2018-09-19] VITALS: Ht 172.7 cm; Wt 90.9 kg
[~2018-09-19 00:43] MED LIST changes: -CITA20TA4 PO; +CITA20TA6 PO; -CLON0.2T PO; -EFFE150C2 PO; -GABA-843 PO; -LIDO1SOL7 MT; +LIDO1SOL8 MT; -MIRA3350 PO; +OXYC1TAB23 PO; -PERCOCET PO; -PREG50CA PO; -VITAOIN EXT; +VITS42.53 EXT
[2018-09-19] MEDS ORDERED: GABA-843 PO (00:53)
[2018-09-19] MEDS ORDERED: EFFE150C2 PO (00:53)
[2018-09-19] MEDS ORDERED: SUBO8MIS SL (00:53)
[2018-09-19] MEDS ORDERED: CLON0.2T PO (00:53)
[2018-09-19] MEDS ORDERED: PREG50CA PO (00:53)
[2018-09-19] MEDS ORDERED: ONDANSETRON 4MG/2ML VIAL (J2405) IV ONE (01:30)
[2018-09-19] MEDS ORDERED: KETOROLAC 30 MG/ML VIAL (J1885) IV ONE (01:30)
[2018-09-19] MEDS ORDERED: NS 1,000 ML IV ONE (01:30)
[2018-09-19 01:32] LABS: BASO # 0.1 10^3/uL (0.0-0.2); BASO % 0.5 % (0.0-1.0); EOS # 0.4 10^3/uL (0.0-0.50); HEMATOCRIT 41.4 % (36.0-47.0); HEMOGLOBIN 14.4 g/dl (12.0-15.5); LYMPH # 3.8 10^3/uL (1.5-4.5); LYMPH % 40.5 % (24.0-44.0); MEAN CORPUSCULAR HEMOGLOBIN 29.9 pg (27.0-33.0); MEAN CORPUSCULAR HGB CONC 34.8 g/dl (32.0-36.5); MEAN CORPUSCULAR VOLUME 85.9 fl (80.0-96.0); MONO # 0.7 10^3/uL (0.0-0.8); MONO % 7.6 % (0.0-5.0); NEUTROPHILS # 4.5 10^3/uL (1.8-7.7); NEUTROPHILS % 47.2 % (36.0-66.0); PLATELET COUNT, AUTOMATED 306 10^3/uL (150-450); RED BLOOD COUNT 4.82 10^6/uL (4.00-5.40); WHITE BLOOD COUNT 9.5 10^3/uL (4.0-10.0)
[2018-09-19 01:36] LABS: APPEARANCE, URINE HAZY (CLEAR); BACTERIA, URINE AUTO NEGATIVE (NEGATIVE); BILIRUBIN, URINE AUTO NEGATIVE (NEGATIVE); BLOOD, URINE BLOOD NEGATIVE (NEGATIVE); COLOR, URINE YELLOW (YELLOW); GLUCOSE, URINE (UA) AUTO NEGATIVE (NEGATIVE); KETONE, URINE AUTO NEGATIVE (NEGATIVE); LEUKOCYTE ESTERASE, URINE AUTO NEGATIVE (NEGATIVE); MUCUS, URINE SMALL (NEGATIVE); NITRITE, URINE AUTO NEGATIVE (NEGATIVE); PROTEIN, URINE AUTO NEGATIVE (NEGATIVE); RBC, URINE AUTO 3 /HPF (0-3); SPECIFIC GRAVITY URINE AUTO 1.023 (1.002-1.035); SQUAMOUS EPITHELIAL CELL UR AU 10 /HPF (0-6); UROBILINOGEN, URINE AUTO 0.2 mg/dL (0.0-2.0); WBC, URINE AUTO 3 /HPF (0-3)
[2018-09-19] MEDS: GASTROGRAFIN SOLUTION 30ML PO SCH ×2 (01:50→02:20)
[2018-09-19 02:09] LABS: ALBUMIN 4.3 GM/DL (3.2-5.2); ALT/SGPT 21 U/L (12-78); AMYLASE 53 U/L (25-115); BILIRUBIN,TOTAL 0.5 MG/DL (0.2-1.0); BLOOD UREA NITROGEN 14 MG/DL (7-18); CALCIUM LEVEL 9.2 MG/DL (8.5-10.1); CARBON DIOXIDE LEVEL 25 MEQ/L (21-32); CHLORIDE LEVEL 108 MEQ/L (98-107); CREATININE FOR GFR 0.86 MG/DL (0.55-1.30); ETHYL ALCOHOL (ETHANOL) < 0.003 % (0.000-0.010); GLOMERULAR FILTRATION RATE > 60.0 (>60); GLUCOSE, FASTING 100 MG/DL (70-100); LIPASE 71 U/L (73-393); POTASSIUM SERUM 3.8 MEQ/L (3.5-5.1); SODIUM LEVEL 142 MEQ/L (136-145); TOTAL PROTEIN 7.9 GM/DL (6.4-8.2)
[2018-09-19] MEDS ORDERED: TRIMETHOBENZAMIDE HCL INJ 200 MG/2 ML VIAL (J3250) IM ONE (02:15)
[2018-09-19] MEDS ORDERED: DICYCLOMINE INJ 20MG/2ML (J0500) IM ONE (02:15)
[2018-09-19] MEDS ORDERED: ISOVUE-370 76% 125ML VIAL (Q9967 PER ML) As Ordered ONE (02:47)
--- NOTE | 2018-09-19 05:39 | REPVR ---
EXAM: CT Abdomen and Pelvis With Contrast EXAM DATE/TIME: 09/19/2018 1:24 AM CLINICAL HISTORY: 32 years old, female; Pain; Abdominal pain; Localized; Left upper quadrant (luq); Additional info: Luq pain, recent mono dx TECHNIQUE: Imaging protocol: Axial computed tomography images of the abdomen and pelvis with intravenous contrast. Coronal and sagittal reformatted images were created and reviewed. Radiation optimization: All CT scans at this facility use at least one of these dose optimization techniques: automated exposure control; mA and/or kV adjustment per patient size (includes targeted exams where dose is matched to clinical indication); or iterative reconstruction. Contrast material: iso Contrast volume: 100 ml Contrast route: ac COMPARISON: CT ABD/PEL W/IV CONTRAST ONLY 06/05/2018 8:40 AM FINDINGS: Lower thorax: The visualized portions of the lung bases are normal. ABDOMEN: Liver: There are no focal liver lesions present. The liver appears mildly enlarged, measuring 22 cm craniocaudal but is unchanged in size from the prior exam. Gallbladder and bile ducts: There has been a cholecystectomy. There is stable, mild biliary ductal dilation. Pancreas: The pancreas is normal with no ductal dilation. Spleen: The spleen and is normal in size. Adrenals: The adrenal glands are normal. Kidneys and ureters: The kidneys are normal. There are no ureteral stones or hydronephrosis. Stomach and bowel: The small bowel appears unremarkable. There is no dilation or thickening of the colon. There is stool throughout the colon. Appendix: The appendix is not identified. PELVIS: Bladder: The bladder is mostly collapsed. No bladder stones are identified. Reproductive: The uterus is absent. ABDOMEN and PELVIS: Intraperitoneal space: There is no evidence of free intraperitoneal or pelvic fluid. There is no free intraperitoneal air. Bones/joints: No suspicious osseous lesions. No acute fractures or dislocations. Soft tissues: There is a small left para midline anterior abdominal wall hernia containing only fat, unchanged. Vasculature: The aorta is normal. No aneurysm. Lymph nodes: No lymphadenopathy is seen. IMPRESSION: 1. No definite acute abnormality identified. 2. No significant splenomegaly. The liver appears mildly enlarged but is unchanged compared to the prior exam. 3. Moderate to large stool burden. No signs of bowel obstruction. Electronically signed by: Marilee Blue On 09/19/2018 05:39:04 AM
[2018-09-19] MEDS ORDERED: MIRA3350 PO (05:43)
[2018-09-19 06:01] VITALS: BP 151/80
== END 2018-09-19 06:02 | disposition home or self-care (01) ==
LOC: M ED 00:43
DX: K59.00 Constipation, unspecified (principal); I10 Essential (primary) hypertension; Z86.19 Personal history of other infectious and parasitic diseases; J45.909 Unspecified asthma, uncomplicated; N80.9 Endometriosis, unspecified; F31.9 Bipolar disorder, unspecified; F41.9 Anxiety disorder, unspecified; F32.9 Major depressive disorder, single episode, unspecified; F19.10 Other psychoactive substance abuse, uncomplicated; R94.5 Abnormal results of liver function studies; Z79.899 Other long term (current) drug therapy
CPT/HCPCS: 36415; 74177; 80053; 81001; 81025; 82150; 83690; 85025; 96372; 96374; 96375; 99284; G0480; J0500; J1885; J2405; J3250; Q9963; Q9967

== ENCOUNTER 2018-10-08 15:28 | Emergency (ER) | payer OTHER ==
[~2018-10-08] VITALS: Ht 172.7 cm; Wt 113.6 kg
[~2018-10-08 15:28] MED LIST changes: +CLON0.2T PO; +EFFE150C2 PO; +GABA-843 PO; +MIRA3350 PO; +PREG50CA PO
[2018-10-08] MEDS ORDERED: NS 1,000 ML IV ONE (16:00)
[2018-10-08] MEDS ORDERED: ONDANSETRON 4MG/2ML VIAL (J2405) IV ONE (16:00)
[2018-10-08] MEDS ORDERED: MORPHINE 4 MG/ML 1ML VIAL/SYRINGE (J2270) IV ONE (16:00)
[2018-10-08 16:32] LABS: BASO % 0.4 % (0.0-1.0); EOS # 0.4 10^3/uL (0.0-0.50); EOS % 5.8 % (0.0-3.0); HEMATOCRIT 39.5 % (36.0-47.0); HEMOGLOBIN 13.1 g/dl (12.0-15.5); LYMPH # 3.1 10^3/uL (1.5-4.5); LYMPH % 40.5 % (24.0-44.0); MEAN CORPUSCULAR HEMOGLOBIN 29.7 pg (27.0-33.0); MEAN CORPUSCULAR HGB CONC 33.2 g/dl (32.0-36.5); MEAN CORPUSCULAR VOLUME 89.6 fl (80.0-96.0); MONO # 0.5 10^3/uL (0.0-0.8); MONO % 6.3 % (0.0-5.0); NEUTROPHILS # 3.5 10^3/uL (1.8-7.7); NEUTROPHILS % 46.6 % (36.0-66.0); PLATELET COUNT, AUTOMATED 243 10^3/uL (150-450); RED BLOOD COUNT 4.41 10^6/uL (4.00-5.40); WHITE BLOOD COUNT 7.6 10^3/uL (4.0-10.0)
[2018-10-08 17:01] LABS: ALBUMIN 3.7 GM/DL (3.2-5.2); ALT/SGPT 46 U/L (12-78); BILIRUBIN,DIRECT < 0.1 MG/DL (0.0-0.2); BILIRUBIN,TOTAL 0.3 MG/DL (0.2-1.0); BLOOD UREA NITROGEN 15 MG/DL (7-18); CALCIUM LEVEL 8.5 MG/DL (8.5-10.1); CARBON DIOXIDE LEVEL 29 MEQ/L (21-32); CHLORIDE LEVEL 106 MEQ/L (98-107); CREATININE FOR GFR 0.83 MG/DL (0.55-1.30); GLOMERULAR FILTRATION RATE > 60.0 (>60); GLUCOSE, FASTING 94 MG/DL (70-100); LIPASE 81 U/L (73-393); POTASSIUM SERUM 3.4 MEQ/L (3.5-5.1); SODIUM LEVEL 140 MEQ/L (136-145); TOTAL PROTEIN 7.3 GM/DL (6.4-8.2)
[2018-10-08] MEDS ORDERED: KETOROLAC 30 MG/ML VIAL (J1885) IV ONE (17:15)
--- NOTE | 2018-10-08 17:29 | REP ---
Left anterior abdominal wall ultrasound: History: Left upper quadrant pain. Known periumbilical hernia. Comparison is made with September 19, 2018 prior study. Findings: Just inferior and to the left of the umbilicus there is a ventral hernia containing fat. This is not reducible with compression. The defect at rest measures at 18.9 mm in transverse dimension. With Valsalva, this defect measures 23.5 mm. Impression: Findings consistent with a abdominal fat containing left periumbilical ventral hernia, not reducible. Electronically Signed by Aly Burns MD 10/08/2018 05:21 P
[2018-10-08] MEDS ORDERED: ONDA8TAB8 PO (17:36)
[2018-10-08] MEDS ORDERED: IBUP-1022 PO (17:41)
[2018-10-08 17:43] VITALS: BP 127/59
[2018-10-08] MEDS ORDERED: IBUPROFEN 600 MG TAB PO ONE (17:45)
== END 2018-10-08 17:58 | disposition home or self-care (01) ==
LOC: M ED 15:28
DX: K43.9 Ventral hernia without obstruction or gangrene (principal); R11.2 Nausea with vomiting, unspecified; R19.7 Diarrhea, unspecified; Z79.899 Other long term (current) drug therapy; F17.210 Nicotine dependence, cigarettes, uncomplicated
CPT/HCPCS: 76705; 80048; 80076; 83605; 83690; 85025; 96361; 96374; 96375; 99284; J1885; J2270; J2405

== ENCOUNTER → 2018-11-25 | Outpatient (REF) | payer OTHER ==
[~2018-11-25] MED LIST changes: +IBUP-1022 PO; +IMIQ5CR TOP; +ONDA8TAB8 PO; +TRAZ1TAB10 PO; -TRAZO50TA PO
== END ==
LOC: M LAB REF 18:31
PROVIDERS: ATTEND Family Medicine Addiction Medicine
DX: R35.0 Frequency of micturition (principal)

== ENCOUNTER 2018-11-28 08:30 | Emergency (ER) | payer OTHER ==
[~2018-11-28] VITALS: Ht 172.7 cm; Wt 120.0 kg
[~2018-11-28 08:30] MED LIST changes: -IMIQ5CR TOP
[2018-11-28] MEDS ORDERED: IMIQ5CR TOP (08:58)
[2018-11-28] MEDS ORDERED: ALBUTEROL SULFATE 2.5 MG/0.5 ML INH NEB SOLN NEB ONE (09:45)
[2018-11-28 09:57] LABS: BASO % 0.3 % (0.0-1.0); EOS # 0.5 10^3/uL (0.0-0.50); EOS % 6.5 % (0.0-3.0); HEMATOCRIT 38.6 % (36.0-47.0); HEMOGLOBIN 13.3 g/dl (12.0-15.5); LYMPH % 38.2 % (24.0-44.0); MEAN CORPUSCULAR HEMOGLOBIN 30.6 pg (27.0-33.0); MEAN CORPUSCULAR HGB CONC 34.5 g/dl (32.0-36.5); MEAN CORPUSCULAR VOLUME 88.9 fl (80.0-96.0); MONO # 0.5 10^3/uL (0.0-0.8); NEUTROPHILS # 3.8 10^3/uL (1.8-7.7); NEUTROPHILS % 48.6 % (36.0-66.0); PLATELET COUNT, AUTOMATED 243 10^3/uL (150-450); RED BLOOD COUNT 4.34 10^6/uL (4.00-5.40); WHITE BLOOD COUNT 7.8 10^3/uL (4.0-10.0)
[2018-11-28 10:16] LABS: ERYTHROCYTE SEDIMENTATION RATE 13 mm/hr (0-20)
--- NOTE | 2018-11-28 10:27 | REP ---
Chest two views HISTORY: Cough Comparison: 01/08/2018 The lungs are clear. The heart is normal in size. The pulmonary vasculature is normal in appearance. The bony structure is intact. IMPRESSION: No acute disease. Electronically Signed by Kike Ibrahim MD 11/28/2018 10:19 A
[2018-11-28 10:29] LABS: ALBUMIN 3.7 GM/DL (3.2-5.2); ALT/SGPT 51 U/L (12-78); BILIRUBIN,DIRECT < 0.1 MG/DL (0.0-0.2); BILIRUBIN,TOTAL 0.2 MG/DL (0.2-1.0); BLOOD UREA NITROGEN 11 MG/DL (7-18); C REACTIVE PROTEIN QUANTITATIV 0.48 MG/DL (0.00-0.30); CALCIUM LEVEL 8.4 MG/DL (8.5-10.1); CARBON DIOXIDE LEVEL 28 MEQ/L (21-32); CHLORIDE LEVEL 107 MEQ/L (98-107); CREATININE FOR GFR 0.78 MG/DL (0.55-1.30); GLOMERULAR FILTRATION RATE > 60.0 (>60); GLUCOSE, FASTING 115 MG/DL (70-100); POTASSIUM SERUM 3.8 MEQ/L (3.5-5.1); SODIUM LEVEL 139 MEQ/L (136-145); TOTAL PROTEIN 7.3 GM/DL (6.4-8.2)
[2018-11-28] MEDS ORDERED: DOXY100C37 PO (10:37)
[2018-11-28 10:50] VITALS: BP 117/72
[2018-12-10] MEDS ORDERED: GABA-845 PO (14:26)
[2018-12-10] MEDS ORDERED: [UNRECOGNIZED DRUG - OTHER] PO (14:26)
[2018-12-10] MEDS ORDERED: LEXA1TAB PO (14:26)
[2018-12-10] MEDS ORDERED: LYRI150C PO (14:26)
== END 2018-11-28 10:54 | disposition home or self-care (01) ==
LOC: M ED 08:30
DX: L03.213 Periorbital cellulitis (principal); J45.909 Unspecified asthma, uncomplicated; R50.9 Fever, unspecified; R59.0 Localized enlarged lymph nodes; I10 Essential (primary) hypertension; M79.7 Fibromyalgia; R56.9 Unspecified convulsions; K21.9 Gastro-esophageal reflux disease without esophagitis; B19.20 Unspecified viral hepatitis C without hepatic coma; N80.9 Endometriosis, unspecified; Z79.899 Other long term (current) drug therapy

== ENCOUNTER 2018-12-10 18:36 | Emergency (ER) | payer OTHER ==
[~2018-12-10] VITALS: Ht 172.7 cm; Wt 122.0 kg
[~2018-12-10 18:36] MED LIST changes: +IMIQ5CR TOP; +LEXA1TAB PO; +LYRI150C PO; +[UNRECOGNIZED DRUG - OTHER] PO
[2018-12-10] MEDS ORDERED: PENI1TAB17 (18:50)
[2018-12-10] MEDS ORDERED: NS 500 ML IV ONE (19:15)
[2018-12-10 19:23] LABS: BASO % 0.3 % (0.0-1.0); EOS # 0.5 10^3/uL (0.0-0.50); EOS % 5.9 % (0.0-3.0); HEMATOCRIT 39.7 % (36.0-47.0); HEMOGLOBIN 13.5 g/dl (12.0-15.5); LYMPH # 2.7 10^3/uL (1.5-4.5); LYMPH % 35.5 % (24.0-44.0); MEAN CORPUSCULAR HEMOGLOBIN 29.6 pg (27.0-33.0); MEAN CORPUSCULAR VOLUME 87.1 fl (80.0-96.0); MONO # 0.5 10^3/uL (0.0-0.8); MONO % 6.2 % (0.0-5.0); NEUTROPHILS # 3.9 10^3/uL (1.8-7.7); NEUTROPHILS % 51.8 % (36.0-66.0); PLATELET COUNT, AUTOMATED 229 10^3/uL (150-450); RED BLOOD COUNT 4.56 10^6/uL (4.00-5.40); WHITE BLOOD COUNT 7.6 10^3/uL (4.0-10.0)
[2018-12-10] MEDS ORDERED: cloNIDine 0.2 MG TAB PO ONE (19:30)
[2018-12-10 19:34] VITALS: BP 140/82
[2018-12-10 19:35] LABS: INR 0.98; PROTHROMBIN TIME 12.7 SECONDS (11.8-14.0)
[2018-12-10 19:36] LABS: PARTIAL THROMBOPLASTIN TIME 32.1 SECONDS (25.0-38.4)
[2018-12-10] MEDS ORDERED: ISOVUE-370 76% 100ML VIAL (Q9967) As Ordered ONE (20:06)
[2018-12-10 20:17] LABS: ALBUMIN 3.9 GM/DL (3.2-5.2); ALT/SGPT 44 U/L (12-78); BILIRUBIN,DIRECT < 0.1 MG/DL (0.0-0.2); BILIRUBIN,TOTAL 0.3 MG/DL (0.2-1.0); CK-MB VALUE MASS 2.3 NG/ML (<3.6); CPK CREATINE PHOSPHOKINASE 184 U/L (26-192); LIPASE 59 U/L (73-393); MB/CK RELATIVE INDEX 1.25 (< OR =4); TOTAL PROTEIN 7.7 GM/DL (6.4-8.2); TROPONIN I < 0.02 NG/ML (< 0.10)
--- NOTE | 2018-12-10 21:03 | REPVR ---
EXAM: CT Abdomen and Pelvis With Contrast EXAM DATE/TIME: 12/10/2018 8:11 PM CLINICAL HISTORY: 33 years old, female; Abdominal pain; Generalized TECHNIQUE: Imaging protocol: Axial computed tomography images of the abdomen and pelvis with intravenous contrast. Coronal and sagittal reformatted images were created and reviewed. Radiation optimization: All CT scans at this facility use at least one of these dose optimization techniques: automated exposure control; mA and/or kV adjustment per patient size (includes targeted exams where dose is matched to clinical indication); or iterative reconstruction. Contrast material: ISOVUE 370; Contrast volume: 100 ml; Contrast route: IV; COMPARISON: CT ABD/PEL W/IV ORAL CONTRAS 09/19/2018 2:48 AM FINDINGS: Liver: Diffuse fatty infiltration of the liver. Gallbladder and bile ducts: Status post cholecystectomy. Pancreas: Unremarkable. No ductal dilation. Spleen: Unremarkable. No splenomegaly. Adrenals: Normal. No mass. Kidneys and ureters: Unremarkable. No stones. No hydronephrosis. Stomach and bowel: Unremarkable. No obstruction. No mucosal thickening. Appendix: No evidence of appendicitis. Intraperitoneal space: Unremarkable. No free air. No significant fluid collection. Vasculature: Unremarkable. No abdominal aortic aneurysm. Lymph nodes: Unremarkable. No enlarged lymph nodes. Bladder: Unremarkable as visualized. Reproductive: Right lower quadrant cystic mass measuring 4.5 cm (axial images 115-130) possibly ovarian origin. Followup pelvic ultrasound is recommended. There is a 17 mm cyst in the left ovary (axial image 35). The uterus is unremarkable. Bones/joints: No acute fracture. Soft tissues: Unremarkable. IMPRESSION: 1. No acute abnormality. 2. Right lower quadrant cystic mass measuring 4.5 cm, possibly ovarian origin. Followup pelvic ultrasound is recommended. Electronically signed by: Leighton Aponte On 12/10/2018 21:03:04 PM
--- NOTE | 2018-12-10 21:35 | REPVR ---
EXAM: CT Angiography Chest With Contrast EXAM DATE/TIME: 12/10/2018 8:11 PM CLINICAL HISTORY: 33 years old, female; Shortness of breath; Additional info: SOB; R/O pe TECHNIQUE: Imaging protocol: Axial computed tomographic angiography images of the chest with intravenous contrast using CT angiography protocol. Coronal and sagittal reformatted images were created and reviewed. 3D rendering: MIP reconstructed images were created and reviewed. Radiation optimization: All CT scans at this facility use at least one of these dose optimization techniques: automated exposure control; mA and/or kV adjustment per patient size (includes targeted exams where dose is matched to clinical indication); or iterative reconstruction. Contrast material: ISOVUE 370; Contrast volume: 100 ml; Contrast route: IV; COMPARISON: CT ANGIO CHEST 12/18/2016 10:42 AM FINDINGS: Pulmonary arteries: Normal. No pulmonary emboli. Aorta: Unremarkable. No aortic aneurysm. No aortic dissection. Lungs: Unremarkable. No consolidation. No masses. Pleural space: Unremarkable. No pneumothorax. No pleural effusion. Heart: Unremarkable. No cardiomegaly. Lymph nodes: Unremarkable. No enlarged lymph nodes. Bones/joints: Unremarkable. No acute fracture. Soft tissues: Unremarkable. IMPRESSION: No acute pulmonary embolism. Electronically signed by: Diann Holt On 12/10/2018 21:34:27 PM
--- NOTE | 2018-12-10 21:57 | ECGEPIP ---
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
--- NOTE | 2018-12-10 23:02 | REPVR ---
EXAM: US Pelvis Complete, Transabdominal EXAM DATE/TIME: 12/10/2018 10:19 PM CLINICAL HISTORY: 33 years old, female; Pelvic pain; Prior surgery; Surgery date: 6+ months; Surgery type: S/P hysterectomy 2013; Additional info: Further evaluate right cystic mass/pelvic pain TECHNIQUE: Imaging protocol: Real-time transabdominal pelvic ultrasound with image documentation. Complete exam. COMPARISON: US PELVIC NON-OB COMPLETE 01/28/2018 3:43 PM FINDINGS: Right adnexa: The right ovary measures 5.6 CM in length by 3.8 CM in thickness. There is a large cyst of the right ovary which measures 5.6 CM by 4 CM by 5.3 CM. There is vascular flow identified of the ovarian tissue on the right. There are low-level echoes within the right ovarian cyst probably a partially hemorrhagic cyst. Considerations for this cyst would include hemorrhagic follicular cyst, endometrioma, cystadenoma or cystadenocarcinoma. It would be important to have sequential followup studies to ensure that this dominant cystic structure resolves or remains stable. This dominant cyst on the right was not seen on the ultrasound of 01/28/2018. Left adnexa: The left ovary measures 2.5 CM in length by 1.8 CM in thickness. There is vascular flow the left ovary. Free fluid: None. Bladder: Normal appearing urinary bladder. IMPRESSION: 5.6 CM right ovarian cystic structure with low-level echo. Considerations include hemorrhagic follicular cyst, endometrioma, cystadenoma or cystadenocarcinoma. The patient should have a followup study in 3 months and 8 months to document stability or resolution. Electronically signed by: Fady Murrell On 12/10/2018 23:02:12 PM
[2018-12-10 23:45] VITALS: BP 117/57
--- NOTE | 2018-12-11 13:06 | ED PDOC ---
Post-Departure Follow-Up dr mauricio faxed formal report of pelvic us for fu [employer] MD Dec 11, 2018 13:06
== END 2018-12-10 23:47 | disposition home or self-care (01) ==
LOC: M ED 18:36
DX: N83.292 Other ovarian cyst, left side (principal); M79.7 Fibromyalgia; B19.20 Unspecified viral hepatitis C without hepatic coma; F31.9 Bipolar disorder, unspecified; F19.10 Other psychoactive substance abuse, uncomplicated; R87.810 Cervical high risk human papillomavirus (HPV) DNA test positive; Z72.0 Tobacco use; Z79.899 Other long term (current) drug therapy
CPT/HCPCS: 36415; 71275; 74177; 76856; 80047; 80076; 81001; 82550; 82553; 83605; 83690; 85025; 85610; 85730; 87040; 93005; 93041; 96360; 99285; Q9967

== ENCOUNTER → 2018-12-16 | Outpatient (REF) | payer OTHER ==
[~2018-12-16] MED LIST changes: +PENI1TAB17
== END ==
LOC: M SFHCWAGY 14:07
PROVIDERS: ATTEND Nurse Practitioner Family
DX: N83.201 Unspecified ovarian cyst, right side (principal)

== ENCOUNTER → 2019-01-27 | Outpatient (REF) | payer OTHER, MEDICAID ==
[~2019-01-27] MED LIST changes: -ARTI99.0 OU; +ARTIDRO2 OU; +CYAN500T8 PO; -DULO1CAP2 PO; +DULO1CAP5 PO; -VITA500T3 PO
[2019-01-27 20:32] LABS: BASO # 0.1 10^3/uL (0.0-0.2); BASO % 0.6 % (0.0-1.0); EOS # 0.4 10^3/uL (0.0-0.50); EOS % 4.5 % (0.0-3.0); HEMATOCRIT 46.7 % (36.0-47.0); HEMOGLOBIN 16.3 g/dl (12.0-15.5); LYMPH # 2.6 10^3/uL (1.5-4.5); LYMPH % 30.4 % (24.0-44.0); MEAN CORPUSCULAR HGB CONC 34.9 g/dl (32.0-36.5); MEAN CORPUSCULAR VOLUME 85.8 fl (80.0-96.0); MONO # 0.5 10^3/uL (0.0-0.8); MONO % 5.7 % (0.0-5.0); NEUTROPHILS # 4.9 10^3/uL (1.8-7.7); NEUTROPHILS % 58.4 % (36.0-66.0); PLATELET COUNT, AUTOMATED 349 10^3/uL (150-450); RED BLOOD COUNT 5.44 10^6/uL (4.00-5.40); WHITE BLOOD COUNT 8.5 10^3/uL (4.0-10.0)
[2019-01-27 20:41] LABS: ALBUMIN 4.6 GM/DL (3.2-5.2); ALT/SGPT 25 U/L (12-78); BILIRUBIN,TOTAL 0.5 MG/DL (0.2-1.0); BLOOD UREA NITROGEN 18 MG/DL (7-18); CALCIUM LEVEL 9.6 MG/DL (8.5-10.1); CARBON DIOXIDE LEVEL 26 MEQ/L (21-32); CHLORIDE LEVEL 107 MEQ/L (98-107); CREATININE FOR GFR 0.97 MG/DL (0.55-1.30); GLOMERULAR FILTRATION RATE > 60.0 (>60); GLUCOSE, FASTING 101 MG/DL (70-100); POTASSIUM SERUM 3.9 MEQ/L (3.5-5.1); SODIUM LEVEL 140 MEQ/L (136-145); THYROID STIMULATING HORMONE 0.529 uIU/ML (0.358-3.740); TOTAL PROTEIN 8.3 GM/DL (6.4-8.2)
[2019-01-27 20:55] LABS: ERYTHROCYTE SEDIMENTATION RATE 2 mm/hr (0-20)
== END ==
LOC: M LAB REF 19:13
PROVIDERS: ATTEND Family Medicine Addiction Medicine
DX: R53.81 Other malaise (principal)

== ENCOUNTER → 2019-02-12 | Outpatient (REF) | payer OTHER ==
[2019-02-17 14:31] LABS: HSV-1 DNA Negative (Negative); HSV-2 DNA Negative (Negative); VARICELLA ZOSTER VIRUS PCR Negative (Negative)
== END ==
LOC: EEVIPCON 16:13 → M SFHCPLAZ 16:13
PROVIDERS: ATTEND Dermatology
DX: R21 Rash and other nonspecific skin eruption (principal)

== ENCOUNTER → 2019-03-10 | Outpatient (CLI) | payer OTHER ==
[~2019-03-10] MED LIST changes: +BUPR-286 PO; +BUPR1TAB53 PO; +ESCI20TA PO; +FLUO40CA PO; +IBUP1TAB6 PO; +MELA3TAB41 PO; +MM S100C PO; +NARC1SPR; +NICO21DI38 TD; +TOPI100T9 PO
[2019-03-12 09:03] LABS: RUBELLA IgG QUALITATIVE IMMUNE (IMMUNE)
== END ==
LOC: M WUC 14:30
PROVIDERS: ATTEND Nurse Practitioner Family
DX: Z13.9 Encounter for screening, unspecified (principal)

== ENCOUNTER 2019-04-13 20:54 | Emergency (ER) | payer OTHER ==
[~2019-04-13] VITALS: Ht 170.2 cm; Wt 90.9 kg
[~2019-04-13 20:54] MED LIST changes: -BUPR-286 PO; -BUPR1TAB53 PO; -ESCI20TA PO; -FLUO40CA PO; -IBUP1TAB6 PO; -MELA3TAB41 PO; -MM S100C PO; -NARC1SPR; -NICO21DI38 TD; -TOPI100T9 PO
[2019-04-13 21:12] VITALS: BP 138/75
[2019-04-14] MEDS ORDERED: GABA600T4 PO ×2 (00:32)
[2019-04-14] MEDS ORDERED: ESCI20TA PO (00:48)
[2019-04-14] MEDS ORDERED: NARC1SPR (02:35)
[2019-04-14] MEDS ORDERED: IBUP1TAB6 PO (02:36)
== END 2019-04-13 21:56 | disposition left against medical advice (07) ==
LOC: M ED 20:54
DX: F19.20 Other psychoactive substance dependence, uncomplicated (principal); F33.9 Major depressive disorder, recurrent, unspecified; F41.9 Anxiety disorder, unspecified; Z79.899 Other long term (current) drug therapy; F15.10 Other stimulant abuse, uncomplicated; F17.210 Nicotine dependence, cigarettes, uncomplicated

== ENCOUNTER 2019-04-13 23:15 | Emergency (ER) | payer OTHER ==
[~2019-04-13] VITALS: Ht 170.2 cm; Wt 90.9 kg
[2019-04-14] MEDS ORDERED: GABA600T4 PO ×2 (00:32)
[2019-04-14] MEDS ORDERED: ESCI20TA PO (00:48)
[2019-04-14 01:09] LABS: HEMATOCRIT 40.7 % (36.0-47.0); HEMOGLOBIN 13.9 g/dl (12.0-15.5); MEAN CORPUSCULAR HGB CONC 34.2 g/dl (32.0-36.5); MEAN CORPUSCULAR VOLUME 84.8 fl (80.0-96.0); PLATELET COUNT, AUTOMATED 236 10^3/uL (150-450); WHITE BLOOD COUNT 7.4 10^3/uL (4.0-10.0)
[2019-04-14 01:21] LABS: AMPHETAMINES LEVEL URINE POSITIVE (NEGATIVE); BARBITURATES URINE NEGATIVE (NEGATIVE); BENZODIAZEPINES URINE NEGATIVE (NEGATIVE); CANNABINOIDS URINE NEGATIVE (NEGATIVE); COCAINE METABOLITE URINE NEGATIVE (NEGATIVE); METHADONE URINE NEGATIVE (NEGATIVE); OPIATES URINE NEGATIVE (NEGATIVE); PHENCYCLIDINE URINE NEGATIVE (NEGATIVE)
[2019-04-14 01:48] LABS: HCG, SERUM QUALITATIVE NEGATIVE (NEGATIVE)
[2019-04-14 01:59] LABS: ACETAMINOPHEN LEVEL < 2.0 UG/ML (10.0-30.0); ALBUMIN 4.4 GM/DL (3.2-5.2); ALT/SGPT 21 U/L (12-78); BILIRUBIN,DIRECT 0.2 MG/DL (0.0-0.2); BILIRUBIN,TOTAL 0.9 MG/DL (0.2-1.0); BLOOD UREA NITROGEN 11 MG/DL (7-18); CALCIUM LEVEL 9.1 MG/DL (8.5-10.1); CARBON DIOXIDE LEVEL 27 MEQ/L (21-32); CHLORIDE LEVEL 104 MEQ/L (98-107); CREATININE FOR GFR 0.74 MG/DL (0.55-1.30); ETHYL ALCOHOL (ETHANOL) < 0.003 % (0.000-0.010); GLOMERULAR FILTRATION RATE > 60.0 (>60); GLUCOSE, FASTING 94 MG/DL (70-100); POTASSIUM SERUM 3.8 MEQ/L (3.5-5.1); SALICYLATE LEVEL < 1.7 MG/DL (5.0-30.0); SODIUM LEVEL 139 MEQ/L (136-145); THYROID STIMULATING HORMONE 0.451 uIU/ML (0.358-3.740); TOTAL PROTEIN 7.8 GM/DL (6.4-8.2)
[2019-04-14] MEDS ORDERED: NARC1SPR (02:35)
[2019-04-14] MEDS ORDERED: IBUP1TAB6 PO (02:36)
[2019-04-14] MEDS ORDERED: HALOPERIDOL 5 MG/ML VIAL (J1630) IM ONE (04:30)
[2019-04-14] MEDS ORDERED: diphenhydrAMINE INJ 50MG/ML VIAL (J1200) IM ONE (04:30)
[2019-04-14] MEDS ORDERED: LORazepam 2 MG/ML VIAL (J2060) IM ONE (04:30)
[2019-04-14] MEDS ORDERED: LORazepam 2 MG TAB PO STA (04:50)
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
[2019-04-14 11:00] VITALS: BP 126/81
[2019-04-14] MEDS ORDERED: BUPRENORPHINE/NALOXONE 8-2MG SUBLINGUAL TABLET(SUBOXONE) SL ONE (11:15)
--- NOTE | 2019-04-14 17:21 | ECGEPIP ---
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
== END 2019-04-14 12:13 | disposition home or self-care (01) ==
LOC: M ED 23:15
DX: F15.159 Other stimulant abuse with stimulant-induced psychotic disorder, unspecified (principal); I45.19 Other right bundle-branch block; B19.20 Unspecified viral hepatitis C without hepatic coma; Z79.899 Other long term (current) drug therapy
CPT/HCPCS: 36415; 80048; 80076; 80307; 84443; 84703; 85027; 93005; 93041; 94760; 99285; G0480

== ENCOUNTER 2019-04-30 09:16 | Emergency (ER) | payer MEDICAID, OTHER, SELFPAY ==
[~2019-04-30 09:16] MED LIST changes: +ESCI20TA PO; +IBUP1TAB6 PO; +NARC1SPR
[2019-04-30] MEDS ORDERED: LORazepam 2 MG/ML VIAL (J2060) IM STA (09:27)
[2019-04-30] MEDS ORDERED: LORazepam 2 MG TAB PO STA (10:49)
[2019-04-30 12:08] VITALS: BP 134/83
== END 2019-04-30 12:42 | disposition home or self-care (01) ==
LOC: M ED 09:16
DX: F15.159 Other stimulant abuse with stimulant-induced psychotic disorder, unspecified (principal); B19.20 Unspecified viral hepatitis C without hepatic coma; Z79.899 Other long term (current) drug therapy
CPT/HCPCS: 96372; 99284; J2060

== ENCOUNTER 2019-07-04 23:58 | Inpatient (IN) | payer MEDICAID, OTHER ==
[~2019-07-04] VITALS: Ht 172.7 cm; Wt 79.5 kg
[2019-07-05] MEDS ORDERED: NS 1,000 ML IV ONE (00:30)
[2019-07-05 00:34] LABS: BASO % 0.2 % (0.0-1.0); EOS % 0.4 % (0.0-3.0); HEMOGLOBIN 13.5 g/dl (12.0-15.5); LYMPH # 1.8 10^3/uL (1.5-5.0); LYMPH % 22.8 % (24.0-44.0); MEAN CORPUSCULAR HEMOGLOBIN 29.5 pg (27.0-33.0); MEAN CORPUSCULAR HGB CONC 33.8 g/dl (32.0-36.5); MEAN CORPUSCULAR VOLUME 87.5 fl (80.0-96.0); MONO # 0.6 10^3/uL (0.0-0.8); MONO % 7.1 % (0.0-5.0); NEUTROPHILS # 5.6 10^3/uL (1.5-8.5); NEUTROPHILS % 69.3 % (36.0-66.0); PLATELET COUNT, AUTOMATED 278 10^3/uL (150-450); RED BLOOD COUNT 4.57 10^6/uL (4.00-5.40)
[2019-07-05 01:05] LABS: ALBUMIN 4.7 GM/DL (3.2-5.2); ALT/SGPT 186 U/L (12-78); BILIRUBIN,DIRECT 0.3 MG/DL (0.0-0.2); BILIRUBIN,TOTAL 0.7 MG/DL (0.2-1.0); BLOOD UREA NITROGEN 19 MG/DL (7-18); CALCIUM LEVEL 8.8 MG/DL (8.5-10.1); CARBON DIOXIDE LEVEL 21 MEQ/L (21-32); CHLORIDE LEVEL 110 MEQ/L (98-107); CPK CREATINE PHOSPHOKINASE 450 U/L (26-192); CREATININE FOR GFR 1.12 MG/DL (0.55-1.30); GLOMERULAR FILTRATION RATE 59.6 (>60); GLUCOSE, FASTING 65 MG/DL (70-100); POTASSIUM SERUM 3.6 MEQ/L (3.5-5.1); SALICYLATE LEVEL < 1.7 MG/DL (5.0-30.0); SODIUM LEVEL 140 MEQ/L (136-145); TOTAL PROTEIN 8.7 GM/DL (6.4-8.2)
[2019-07-05 01:06] LABS: ACETAMINOPHEN LEVEL < 2.0 UG/ML (10.0-30.0); ETHYL ALCOHOL (ETHANOL) < 0.003 % (0.000-0.010)
[2019-07-05] MEDS ORDERED: HALOPERIDOL 5 MG/ML VIAL (J1630) IM ONE (01:45)
[2019-07-05] MEDS ORDERED: diphenhydrAMINE INJ 50MG/ML VIAL (J1200) IM ONE (01:45)
[2019-07-05 04:08] LABS: AMPHETAMINES LEVEL URINE NEGATIVE (NEGATIVE); BARBITURATES URINE NEGATIVE (NEGATIVE); BENZODIAZEPINES URINE NEGATIVE (NEGATIVE); CANNABINOIDS URINE NEGATIVE (NEGATIVE); COCAINE METABOLITE URINE NEGATIVE (NEGATIVE); METHADONE URINE NEGATIVE (NEGATIVE); OPIATES URINE NEGATIVE (NEGATIVE); PHENCYCLIDINE URINE NEGATIVE (NEGATIVE)
--- NOTE | 2019-07-05 06:20 | ECGEPIP ---
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
[2019-07-05] MEDS ORDERED: GABAPENTIN 300 MG CAP PO ONE (08:00)
[2019-07-05] MEDS ORDERED: PREGABALIN 75 MG CAP(LYRICA) PO ONE (08:00)
[2019-07-05] MEDS ORDERED: SUBO8MIS SL (11:30)
[2019-07-05] MEDS ORDERED: FLUO40CA PO (11:30)
[2019-07-05] MEDS ORDERED: MELA3TAB41 PO (11:30)
[2019-07-05] MEDS ORDERED: BUPR1TAB53 PO (11:30)
[2019-07-05] MEDS ORDERED: MM S100C PO (11:30)
[2019-07-05] MEDS ORDERED: TOPI100T9 PO (11:30)
[2019-07-05] MEDS ORDERED: NICO21DI38 TD (11:30)
[2019-07-05] MEDS ORDERED: BUPR-286 PO (11:32)
[2019-07-05] MEDS ORDERED: MAALOX 30 ML SUSP *UDC PO PRN (15:45)
[2019-07-05] MEDS ORDERED: MOM 30ML SUSPENSION UDC PO PRN (15:45)
[2019-07-05 17:37] VITALS: BP 136/83
[2019-07-05] MEDS ORDERED: traZODone 50 MG TAB PO PRN (21:00)
[2019-07-06 07:08] VITALS: BP 126/67
[2019-07-06] MEDS ORDERED: NICOTINE 21MG/24HR 1 EA TRANSDERMAL TD PRN (09:00)
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
[2019-07-06] MEDS ORDERED: ALBUTEROL 90 MCG/ACT 8GM HFA INHALER INH PRN (12:00)
[2019-07-06] MEDS ORDERED: cloNIDine 0.1 MG TAB PO PRN (12:00)
[2019-07-06] MEDS ORDERED: IBUPROFEN 600 MG TAB PO PRN (12:00)
[2019-07-06] MEDS: DOCUSATE SODIUM 100 MG CAP PO SCH ×2 (12:12→20:57)
[2019-07-06] MEDS: TOPIRAMATE (TopAMAX) 100 MG TAB PO SCH ×2 (12:13→20:56)
[2019-07-06] MEDS: GABAPENTIN 300 MG CAP PO SCH ×3 (12:13→20:57)
[2019-07-06] MEDS: FLUoxetine 20 MG CAP PO SCH (12:13)
[2019-07-06] MEDS: buPROPion (WELLBUTRIN SR) 100 MG SR TAB PO SCH ×2 (12:13→20:56)
[2019-07-06] MEDS: BUPRENORPHINE/NALOXONE 8-2MG SUBLINGUAL TABLET(SUBOXONE) SL SCH (12:14)
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
[2019-07-06 13:49] LABS: BLOOD UREA NITROGEN 14 MG/DL (7-18); CALCIUM LEVEL 8.8 MG/DL (8.5-10.1); CARBON DIOXIDE LEVEL 18 MEQ/L (21-32); CHLORIDE LEVEL 115 MEQ/L (98-107); CREATININE FOR GFR 0.69 MG/DL (0.55-1.30); GLOMERULAR FILTRATION RATE > 60.0 (>60); GLUCOSE, FASTING 91 MG/DL (70-100); SODIUM LEVEL 141 MEQ/L (136-145)
[2019-07-06 15:48] VITALS: BP 110/60
[2019-07-06] MEDS: OLANZapine ORAL DISINTEGRATING TAB 5MG PO PRN (20:57)
[2019-07-07 06:54] VITALS: BP 134/78
[2019-07-07] MEDS: FLUoxetine 20 MG CAP PO SCH (09:10)
[2019-07-07] MEDS: TOPIRAMATE (TopAMAX) 100 MG TAB PO SCH ×2 (09:10→20:14)
[2019-07-07] MEDS: buPROPion (WELLBUTRIN SR) 100 MG SR TAB PO SCH ×2 (09:10→20:13)
[2019-07-07] MEDS: DOCUSATE SODIUM 100 MG CAP PO SCH ×2 (09:10→20:14)
[2019-07-07] MEDS: GABAPENTIN 300 MG CAP PO SCH ×3 (09:10→20:14)
[2019-07-07] MEDS: BUPRENORPHINE/NALOXONE 8-2MG SUBLINGUAL TABLET(SUBOXONE) SL SCH (09:11)
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
[2019-07-07 12:23] LABS: HEPATITIS A ANTIBODY IGM NEGATIVE (NEGATIVE); HEPATITIS B CORE ANTIBODY IGM NEGATIVE (NEGATIVE); HEPATITIS B SURFACE ANTIGEN NEGATIVE (NEGATIVE)
[2019-07-07 12:28] LABS: HEPATITIS C VIRUS ABY INDEX > 11.0 INDEX (<0.8)
[2019-07-07 13:32] LABS: BLOOD UREA NITROGEN 13 MG/DL (7-18); CALCIUM LEVEL 9.2 MG/DL (8.5-10.1); CARBON DIOXIDE LEVEL 23 MEQ/L (21-32); CHLORIDE LEVEL 111 MEQ/L (98-107); CREATININE FOR GFR 0.89 MG/DL (0.55-1.30); GLOMERULAR FILTRATION RATE > 60.0 (>60); GLUCOSE, FASTING 80 MG/DL (70-100); POTASSIUM SERUM 3.5 MEQ/L (3.5-5.1); SODIUM LEVEL 140 MEQ/L (136-145)
[2019-07-07 17:22] VITALS: BP 125/72
[2019-07-07] MEDS: OLANZapine ORAL DISINTEGRATING TAB 5MG PO PRN (20:06)
[2019-07-07] MEDS: IBUPROFEN 400 MG TAB PO PRN (20:16)
[2019-07-08 05:58] VITALS: BP 103/56
[2019-07-08] MEDS ORDERED: BUPR-286 PO (08:47)
[2019-07-08] MEDS ORDERED: CLON-412 PO (08:47)
[2019-07-08] MEDS ORDERED: GABA600T4 PO ×2 (08:47)
[2019-07-08] MEDS ORDERED: TOPI100T9 PO (08:47)
[2019-07-08] MEDS ORDERED: FLUO40CA PO (08:47)
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
[2019-07-08] MEDS: DOCUSATE SODIUM 100 MG CAP PO SCH (09:27)
[2019-07-08] MEDS: GABAPENTIN 300 MG CAP PO SCH (09:27)
[2019-07-08] MEDS: FLUoxetine 20 MG CAP PO SCH (09:27)
[2019-07-08] MEDS: buPROPion (WELLBUTRIN SR) 100 MG SR TAB PO SCH (09:28)
[2019-07-08] MEDS: IBUPROFEN 400 MG TAB PO PRN (09:28)
[2019-07-08] MEDS: TOPIRAMATE (TopAMAX) 100 MG TAB PO SCH (09:28)
[2019-07-08] MEDS: BUPRENORPHINE/NALOXONE 8-2MG SUBLINGUAL TABLET(SUBOXONE) SL SCH (09:29)
--- NOTE | 2019-07-08 12:19 | IPNPDOC ---
Text Note Date of Service 07/08/19 NOTE Labs reviewed - Hep C Ab Index > 11.0. Sent for RNA confirmation Later noted per chart review that pt was diagnosed with Hepatitis C in 2018 and was being followed by Infectious Disease. Problem list will be updated to reflect this. ` VS,Fishbone, I+O VS, Fishbone, I+O Laboratory Tests 07/07/19 12:37 Vital Signs Date Time Temp Pulse Resp B/P (MAP) Pulse Ox O2 Delivery O2 Flow Rate FiO2 07/08/19 05:58 98.0 46 16 103/56 (72) 07/05/19 17:37 Room Air 07/05/19 15:56 100 YUNIER KHAN PA-C Jul 08, 2019 12:19
== END 2019-07-08 11:45 | disposition home or self-care (01) | DRG 773 ==
LOC: M ED 23:58 → M ED INP 07-05 15:33 → M PSY 07-05 16:30
PROVIDERS: ADMIT Psychiatry & Neurology Psychiatry; ATTEND Psychiatry & Neurology Psychiatry
DX: F19.94 Other psychoactive substance use, unspecified with psychoactive substance-induced mood disorder (principal); F11.90 Opioid use, unspecified, uncomplicated; F32.9 Major depressive disorder, single episode, unspecified; F14.90 Cocaine use, unspecified, uncomplicated; F15.90 Other stimulant use, unspecified, uncomplicated; F41.9 Anxiety disorder, unspecified; Z79.899 Other long term (current) drug therapy; B18.2 Chronic viral hepatitis C; G43.909 Migraine, unspecified, not intractable, without status migrainosus

== ENCOUNTER 2019-10-12 02:36 | Emergency (ER) | payer OTHER ==
[~2019-10-12] VITALS: Ht 172.7 cm; Wt 77.3 kg
[~2019-10-12 02:36] MED LIST changes: -ARTIDRO2 OU; +BUPR-286 PO; +BUPR1TAB53 PO; +FLUO40CA PO; -LIDO1SOL8 MT; +LIDO2SOL17 MT; +MELA3TAB62 PO; +MM S100C PO; +NICO21DI38 TD; +POLYOPD OU; +TOPI100T9 PO
[2019-10-12 03:30] LABS: APPEARANCE, URINE HAZY (CLEAR); BACTERIA, URINE AUTO NEGATIVE (NEGATIVE); BILIRUBIN, URINE AUTO NEGATIVE (NEGATIVE); BLOOD, URINE BLOOD NEGATIVE (NEGATIVE); COLOR, URINE AMBER (YELLOW); GLUCOSE, URINE (UA) AUTO NEGATIVE (NEGATIVE); KETONE, URINE AUTO NEGATIVE (NEGATIVE); LEUKOCYTE ESTERASE, URINE AUTO 2+ (NEGATIVE); MUCUS, URINE MODERATE (NEGATIVE); NITRITE, URINE AUTO NEGATIVE (NEGATIVE); PROTEIN, URINE AUTO NEGATIVE (NEGATIVE); RBC, URINE AUTO 12 /HPF (0-3); SPECIFIC GRAVITY URINE AUTO 1.026 (1.002-1.035); SQUAMOUS EPITHELIAL CELL UR AU 1 /HPF (0-6); WBC, URINE AUTO 72 /HPF (0-3)
[2019-10-12 03:52] LABS: AMPHETAMINES LEVEL URINE POSITIVE (NEGATIVE); BARBITURATES URINE NEGATIVE (NEGATIVE); BENZODIAZEPINES URINE NEGATIVE (NEGATIVE); CANNABINOIDS URINE NEGATIVE (NEGATIVE); COCAINE METABOLITE URINE NEGATIVE (NEGATIVE); METHADONE URINE NEGATIVE (NEGATIVE); OPIATES URINE NEGATIVE (NEGATIVE); PHENCYCLIDINE URINE NEGATIVE (NEGATIVE)
[2019-10-12] MEDS ORDERED: DOXY100C37 PO (04:08)
[2019-10-12] MEDS ORDERED: AUGM500T34 PO (04:08)
[2019-10-12] MEDS ORDERED: FLAG500T PO (04:08)
[2019-10-12] MEDS ORDERED: ACYC400T PO (04:08)
[2019-10-12] MEDS ORDERED: cefTRIAXone 500MG VIAL (J0696 PER 250MG) IM ONE (04:15)
[2019-10-12] MEDS ORDERED: LIDOCAINE 1% SDV 5ML VIAL DILUENT ONE (04:15)
[2019-10-12] MEDS ORDERED: AZITHROMYCIN 250MG TABLET PO ONE (04:15)
[2019-10-12 04:31] VITALS: BP 141/89
--- NOTE | 2019-10-13 03:20 | ECGEPIP ---
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
== END 2019-10-12 04:33 | disposition home or self-care (01) ==
LOC: M ED 02:36
DX: A60.09 Herpesviral infection of other urogenital tract (principal); N76.0 Acute vaginitis; L03.113 Cellulitis of right upper limb; F15.10 Other stimulant abuse, uncomplicated; B19.20 Unspecified viral hepatitis C without hepatic coma; F17.200 Nicotine dependence, unspecified, uncomplicated
CPT/HCPCS: 80307; 87086; 93005; 96372; 99284; J0696

== ENCOUNTER 2020-01-04 08:44 | Emergency (ER) | payer OTHER ==
[~2020-01-04 08:44] MED LIST changes: +ACYC400T PO; +AUGM500T34 PO; +FLAG500T PO; +MELA3TAB30 PO; -MELA3TAB62 PO
[2020-01-04 08:57] VITALS: BP 142/91
== END 2020-01-04 09:05 | disposition left against medical advice (07) ==
LOC: EDSEX 08:44 → EDBD 08:44 → M ED 08:44
DX: T40.1X1A Poisoning by heroin, accidental (unintentional), initial encounter (principal); F11.129 Opioid abuse with intoxication, unspecified; F31.9 Bipolar disorder, unspecified; B19.20 Unspecified viral hepatitis C without hepatic coma; D68.51 Activated protein C resistance; F17.200 Nicotine dependence, unspecified, uncomplicated; Z79.899 Other long term (current) drug therapy